=== PATIENT | female | born 1950 | race Caucasian/White ===

== ENCOUNTER → 2018-05-23 12:49 | Outpatient (CLI) | payer SELFPAY ==
--- NOTE | 2018-05-23 12:59 | CT_ITS ---
STUDY: CTA CHEST REASON FOR EXAM: Female, 68 years old. Jaundice and shortness of breath. Decreased hemoglobin. RADIATION DOSAGE (If Supplied By Facility): CTDIvol = ( 17.98 ) mGy, DLP = ( 1944.26 ) mGycm TECHNIQUE: The examination was performed with the intravenous administration of 100Ml ml of Isovue 370 contrast material. Post-processing of the angiographic images was performed, with multiplanar reformation and 3D reconstruction. Individualized dose optimization techniques were used for this CT. COMPARISON: None. FINDINGS: Normal enhancement of the main pulmonary artery and right and left pulmonary arteries. Normal enhancement of the bilateral peripheral pulmonary arteries. There is no demonstrated pulmonary embolism. Normal thoracic aorta and visualized great vessels. There is no demonstrated aortic dissection. Normal heart and pericardium. Normal mediastinum. Normal hilar regions. Normal visualized trachea and bronchi. The lungs are well expanded. Small bilateral pleural effusions with bibasilar infiltration and/or atelectasis. Normal chest wall structures. There are degenerative changes of thoracic spine. Marked atrophy of the right kidney. Gallstones. Moderate-sized hiatal hernia. CT/CTA Chest W/WO Contrast IMPRESSION: Small bilateral pleural effusions with underlying infiltration and/or atelectasis. Electronically Signed: Jaden Rios MD at 15:12 EDT Tel [phone], Service support ,
--- NOTE | 2018-05-23 13:00 | CT_ITS ---
STUDY: CT ABDOMEN AND PELVIS WITH CONTRAST REASON FOR EXAM: Female, 68 years old. Jaundice. Shortness of breath and decreased hemoglobin. RADIATION DOSAGE (If Supplied By Facility): CTDIvol = ( 17.98 ) mGy, DLP = ( 1944.26 ) mGycm TECHNIQUE: Transaxial images were obtained from the dome of the diaphragm to the symphysis pubis with oral contrast. 100mL ml of Isovue 300 contrast was administered. Sagittal and coronal images were reconstructed. Individualized dose optimization techniques were used for this CT. COMPARISON: None. FINDINGS: Small bilateral pleural effusions with bibasilar atelectasis and/or infiltrates. The visualized portions of the heart are within normal limits. Normal liver. There is a solitary gallstone. There is a 7.6 mm rounded hypodensity in the medial aspect of the spleen. This is not a typical cyst. Normal pancreas. Normal bilateral adrenal glands. Marked atrophy of the right kidney. Normal left kidney. Moderate sized renal hernia. Normal small intestine. There is diverticulosis, with thickening of the colon wall, and pericolonic inflammation changes consistent with acute diverticulitis. This is suggestive of mild degree of diverticulitis. There is non-visualization of the appendix. There is scattered atherosclerotic calcification of the abdominal aorta, without a demonstrated aneurysm. Normal inferior vena cava. There is borderline retroperitoneal lymphadenopathy with enlarged nodes no greater than 10mm in the short axis diameter. Normal urinary bladder. There is absence of the uterus consistent with a prior hysterectomy. Normal abdominal wall. There are degenerative changes of the visualized lumbar spine. CT/Abdomen/Pelvis WITH Contrast IMPRESSION: Small bilateral pleural effusions with bibasilar infiltration and/or atelectasis. Moderate sized hiatal hernia. Solitary gallstone. Marked atrophy of the right kidney. Sigmoid diverticulosis and findings suggest a mild degree of noncomplicated sigmoid diverticulitis. Electronically Signed: Jaden Rios MD at 15:10 EDT Tel [phone], Service support ,
[2018-05-23 13:15] LABS: Absolute Neutrophil Count 4.7 X10^3/uL (2.0-7.7); Basophil# 0.02 X10^3/uL; Basophil% 0.3 % (0-1); Eosinophil# 0.03 X10^3/uL; Eosinophils% 0.5 % (0-5); Hematocrit 17.2 % (37-47); Lymphocyte % 18.8 % (19-41); Mean Corp Hgb Conc 26.2 g/gl (32-36); Mean Corpuscular Volume 68.8 fL (81-99); Mean Platelet Vol. 10.3 fl (6.2-12.0); Monocyte# 0.41 X10^3/uL; Monocyte% 6.4 % (0-10); Neutrophil # 4.71 X10^3/uL (2.7-7.7); Neutrophil % 73.8 % (47-70); Platelet Count 355 K/mm3 (150-450); RBC Distribution Width SD 37.8 fl (35.1-43.9); White Blood Count 6.4 K/mm3 (4.4-11.0)
[2018-05-23 13:17] LABS: Hemoglobin 4.5 g/dl (12.0-15.0); POSITIVE COUNT YES; POSITIVE DIFFERENTIAL NO; POSITIVE MORPHOLOGY YES
[2018-05-23 13:18] LABS: Differential Indicated SCAN CRITERIA MET
[2018-05-23 13:26] LABS: ALB/GLOB Ratio 1.2 RATIO (0.9-2.4); AST(SGOT) 12 U/L (15-37); Alanine Aminotransfer ALT/SGPT 20 U/L (13-56); Albumin, Serum 3.6 g/dL (3.2-5.0); Alkaline Phosphatase 76 U/L (45-117); Amylase 50 U/L (25-115); Anion Gap 10 (5-15); BUN 14 mg/dL (7-18); CRP 7.09 mg/L (0.0-3.0); Calcium,Total 8.7 mg/dL (8.5-10.1); Chloride 109 mmol/L (98-107); EST Glomerular Filtration Rate 59 mL/min (>60); Est Glom Filt Rate - Afr Amer 72 mL/min (>60); Glucose 98 mg/dL (74-106); Lipase 115 U/L (73-393); Potassium 4.6 mmol/L (3.5-5.1); Protein, Total 6.6 g/dL (6.4-8.2); Sodium Level 144 mmol/L (136-145)
[2018-05-23 13:30] LABS: Erythrocyte Sedimentation Rate 7 mm/hr (0-30)
[2018-05-23 13:33] LABS: Anisocytosis RARE; Hypochromasia 3+; Microcytosis 2+; Platelet Estimate ADEQUATE (ADEQ); Polychromasia RARE
[2018-05-24 15:31] LABS: Pathologist Review Reviewed
== END ==
PROVIDERS: Family Provider Internal Medicine; PCP Internal Medicine; Referring Provider Internal Medicine; Visit Provider Internal Medicine
DX: R17 Unspecified jaundice (principal); R06.02 Shortness of breath
CPT/HCPCS: 71275; 74177; 80053; 82150; 83690; 85025; 85652; 86140; Q9967

== ENCOUNTER 2018-05-23 15:00 | Inpatient (IN) | payer MEDICARE, SELFPAY ==
[2018-05-23] VITALS (12 sets, daily range): BP systolic 124–154; BP diastolic 45–82; PULSE 72–109; RESP 16–18; TEMP 36.2–37.5; O2SAT 95–99; BMI 43.0; BMI 43.2
--- NOTE | 2018-05-23 16:22 | EKG12_ITS ---
Test Reason : ABNL LABS Blood Pressure : / mmHG Vent. Rate : 097 BPM Atrial Rate : 097 BPM P-R Int : 154 ms QRS Dur : 068 ms QT Int : 344 ms P-R-T Axes : 066 005 042 degrees QTc Int : 436 ms Normal sinus rhythm Normal ECG Confirmed by ABHINAV LOCKE, AMARIS ([id number]), editorial manager DIETER FRAGA ([id number] on 05/31/2018 1:15:05 PM Referred By: Abida Saleem Confirmed By:AMARIS LA MD
--- NOTE | 2018-05-23 16:34 | NURSING ---
NO OLD EKGS
--- NOTE | 2018-05-23 16:50 | NURSING ---
DR VARELA FOR DR VERONICA
--- NOTE | 2018-05-23 17:02 | NURSING ---
PCU ANEMIA, PE KOTSONIS
--- NOTE | 2018-05-23 17:54 | PCM.HP.STD ---
<Mariella Carrasco - Last Filed: 05/23/18 18:20> Problem List (1) Anemia Status: Acute History of Present Illness Date of Admission: 05/23/18 Chief Complaint: Shortness of breath The patient is a 68 year old F who presents emergency room due to increased shortness of breath. Patient states around December or January she noticed shortness of breath, worse with exertion. She states recently this has increased in severity. She denies chest pain. Complains of generalized fatigue. Reports bilateral lower extremity edema. Denies blood in stool/black stools. Denies abdominal pain. Denies history of colonoscopy. Denies cardiac history. Denies dizziness, lightheadedness, syncope. States she has not seen a primary care physician in 5 years. Does not take any home medications. She established with primary care physician who she saw today. Her hemoglobin was noted to be 4.5 and she was referred to emergency room. 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 Denies: Chest Pain, Light Headedness, Palpitations, Syncope Respiratory: Reports: Shortness of Breath - Increased with exertion.. Denies: Cough, Shortness of breath at rest, Sputum production Gastrointestinal: Denies: Abdominal Pain, Constipation, Diarrhea, Hematochezia, Nausea, Melena, Vomiting Genitourinary: Denies: Dysuria Musculoskeletal: Denies: Joint Pain, Joint Tenderness Skin: Denies: Rash, Wounds Neurological: Denies: Numbness, Tingling, Focal weakness Psychiatric: Denies: Anxiety, Depression, Homicidal Ideations, Suicidal Ideations Hematologic/ Lymphatic: Denies: Easy Bruising, Easy Bleeding VTE Information - Inpt Only VTE Present on Admission: No VTE Mechan Device Prophylaxis: SCD's VTE Pharm Prophylaxis ordered?: No Reason prophylaxis not ordered:: Medical Contraindication Patient Problems: Active and Suspected Problems Anemia (Acute) - Physical Exam General: Alert, Oriented x3, Cooperative, No apparent distress HEENT: Atraumatic, PERRLA, EOMI, Normocephalic Neck: Supple, No JVD, Negative Carotid Bruits Lungs: Clear to auscultation, Diminished Cardiovascular: Regular rate, Regular Rhythm, Normal S1, Normal S2, No murmurs Abdomen: Bowel Sounds Present, Soft, Non Tender, Non-Distended, Obese Extremities: No clubbing, No cyanosis, Capillary Refill Less than 3 Seconds, Edema - BLLE non-pitting Skin: No rashes, No breakdown Musculoskeletal: No Tenderness to Palpation of Joints or Extremities Neurological: Cranial nerves II-XII grossly intact, Neuro grossly intact Psych/Mental Status: Normal Affect, Appropriate Vital Signs Temp Pulse Resp BP Pulse Ox 98.6 F 97 16 154/64 H 99 05/23/18 17:38 05/23/18 17:38 05/23/18 17:38 05/23/18 17:38 05/23/18 17:38 Oxygen Delivery Method Room Air Weight: 220 lb Body Mass Index (BMI) 43.0 Laboratory Tests Past 24 Hrs 05/23/18 05/23/18 05/23/18 17:06 17:06 17:06 Iron Pending TIBC Pending Ferritin Pending Vitamin B12 Pending Folate Pending Blood Type Pending Antibody Screen Pending Crossmatch See Detail Assessment/Plan All Active Problems Anemia (Acute) 1. Acute microcytic anemia-hemoglobin 4.5. Stool negative for occult blood. 2 units PRBC. Lasix 40 mg IV x1 in between PRBC. Iron studies, B12, folate pending. Repeat H&H following transfusion and again in a.m. Check LDH and retic panel given profound acute anemia/new dx. CT of abdomen showed small bilateral pleural effusions, moderate hiatal hernia, solitary gallstone, marked atrophy of the right kidney, sigmoid diverticulosis, mild degree of non-complicated sigmoid diverticulitis. 2. Suspected new onset diastolic CHF-bilateral pleural effusions on CT of chest. Bilateral lower extremity edema. Check BNP. Obtain echo. IV Lasix 40 mg daily. Strict I&O. Daily weight. 3. Bilateral pleural effusions-CT of chest shows small bilateral pleural effusions with underlying infiltration and/or atelectasis. Suspect secondary to #2. Afebrile, no leukocytosis, denies cough. 4. Hypertension, mild-systolic 140-150. Continue to monitor. Add antihypertensive if remains elevated. 5. Obesity-encourage diet lifestyle modifications. Nutrition consult. DVT prophylaxis-SCDs, hold pharmacologic prophylaxis due to anemia. This patient was seen by SHAQUILLE Kraft under the supervision of Dr. Tan. <Martin Tan F - Last Filed: 05/23/18 21:21> History of Present Illness The patient is a 68 year old F [] Past Medical History Allergies No Known Allergies Allergy (Verified 05/23/18 15:03) - Physical Exam Vital Signs Temp Pulse Resp BP Pulse Ox 99.3 F H 93 18 128/58 H 97 05/23/18 20:35 05/23/18 20:35 05/23/18 20:35 05/23/18 20:35 05/23/18 20:35 Oxygen Delivery Method Room Air Weight: 221 lb 1.978 oz Body Mass Index (BMI) 43.2 Intake and Output for Last 24 Hours 05/21/18 05/22/18 05/23/18 23:59 23:59 23:59 Intake Total 0 / 0 Balance 0 / 0 Microbiology Past 72 Hours 05/23/18 16:40 Stool Occult Blood (AXEL) - Final Stool Laboratory Tests Past 24 Hrs 05/23/18 05/23/18 05/23/18 13:08 13:08 17:06 Immature Plt Fraction 4.5 Retic Count 2.18 H Immature Retic Fraction 15.80 Retic Hgb Equivalent 12.6 L Iron TIBC Ferritin Lactate Dehydrogenase B-Natriuretic Peptide Pending Vitamin B12 Pending Folate Blood Type Antibody Screen Crossmatch 05/23/18 05/23/18 05/23/18 17:06 17:06 17:06 Immature Plt Fraction Retic Count Immature Retic Fraction Retic Hgb Equivalent Iron 8 L TIBC 512 H Ferritin 4 L Lactate Dehydrogenase 227 B-Natriuretic Peptide Vitamin B12 Folate 51.90 Blood Type A POSITIVE Antibody Screen NEGATIVE Crossmatch See Detail Code Visit Addendum: Dr. Tan I personally examined the patient and reviewed the chart. I agree with the above. 68-year-old female with no significant past medical history because she does not go to the doctor. She presented today for with dyspnea on exertion and she went to a primary care doctor's office for evaluation where labs were performed as well as imaging. She had a CTA done that showed bilateral small pleural effusions without any pulmonary emboli, and she had a CT abdomen pelvis that did not show any significant pathology either. Her CBC however demonstrated a significant anemia of 4.5 hemoglobin. Iron studies demonstrate an iron deficiency anemia. Fecal occult blood stool is negative. She denies any abdominal pain to think of an upper GI source. Given the pleural effusions edema in her lower extremities and a cardiac murmur that is likely a flow murmur, will proceed with an echo tomorrow and Lasix today between her units of blood. After her blood transfusions she may also require a dose of Venofer and to be initiated on p.o. iron. Of note she has never had a colonoscopy and given how slow this anemia has been, I feel she could probably obtain a colonoscopy as an outpatient. Inpatient E&M: [id number] Init Hosp L3
--- NOTE | 2018-05-23 18:14 | ECHOD_ITS ---
Reason For Study: Dyspnea/SOB Procedure This was a 2D Doppler, Color Flow transthoracic echocardiogram. Exam performed portable in patient room. Left Ventricle Normal size and thickness. Mid cavitary false tendon noted. The estimated ejection fraction is 65 %. Stage 1 diastolic dysfunction. No regional wall motion abnormalities noted. Right Ventricle Normal size and thickness. Normal systolic function. Atria The left atrium is mildly enlarged. Normal right atrium. Normal atrial septum. Mitral Valve The mitral valve is structurally normal. No prolapse or stenosis seen. Mild (1+) mitral valve insufficiency. Tricuspid Valve Normal tricuspid valve. Trivial tricuspid valve insufficiency. Right ventricular systolic pressure estimated to be 39 mmHg. Mild pulmonary hypertension. Aortic Valve Trisinus/trileaflet aortic valve. Pulmonic Valve Normal pulmonic valve. Great Vessels Normal aortic root. Normal arch. Normal inferior vena cava. Inferior vena cava collapse with sniff. Pericardium/Pleural No pericardial effusion. MMode/2D Measurements & Calculations LVIDd: 4.7 cm IVSd: 1.3 cm Ao root diam: 3.0 cm LVIDs: 2.7 cm LVPWd: 1.1 cm LA dimension: 3.7 cm RVDd: 3.1 cm FS: 42.4 % LAV(MOD-bp): 49.3 ml LVAd ap4: 27.6 cm2 SV(MOD-sp4): 57.8 ml LAV(MOD-bp) Indexed: 25.8 ml/m2 EDV(MOD-sp4): 85.1 ml LAV(MOD-sp2): 35.7 ml EDV(sp4-el): 88.7 ml LAV(MOD-sp4): 62.0 ml LVAs ap4: 13.7 cm2 ESV(MOD-sp4): 27.3 ml ESV(sp4-el): 27.5 ml EF(MOD-sp4): 67.9 % EF(sp4-el): 69.0 % SV(sp4-el): 61.2 ml LA A4 area: 21.3 cm2 RA A4 area: 10.7 cm2 Time Measurements MV dec time: 0.12 sec Doppler Measurements & Calculations MV E max hola: 106.6 cm/sec Lat Peak E' Hola: 8.6 cm/sec Med Peak E' Hola: 10.3 cm/sec MV A max hola: 149.9 cm/sec E/E' lat: 12.4 E/E' med: 10.3 MV E/A: 0.71 MV V2 max: 175.3 cm/sec MV P1/2t max hola: 143.5 cm/sec Ao V2 max: 188.8 cm/sec MV max P.3 mmHg MV P1/2t: 63.1 msec Ao max P.3 mmHg MV V2 mean: 100.2 cm/sec MV dec slope: 666.5 cm/sec2 Ao V2 mean: 128.6 cm/sec MV mean P.7 mmHg MVA(P1/2t): 3.5 cm2 Ao mean P.4 mmHg MV V2 VTI: 34.1 cm Ao V2 VTI: 35.3 cm LV V1 max: 148.5 cm/sec MR max hola: 526.7 cm/sec PA V2 max: 114.6 cm/sec LV V1 max P.8 mmHg MR max P.0 mmHg LV V1 mean P.9 mmHg LV V1 mean: 103.7 cm/sec LV V1 VTI: 29.5 cm TR max hola: 290.4 cm/sec TR max P.7 mmHg Interpretation Summary The estimated ejection fraction is 65 %. Stage 1 diastolic dysfunction. The left atrium is mildly enlarged. Mild (1+) mitral valve insufficiency. Trivial tricuspid valve insufficiency. Right ventricular systolic pressure estimated to be 39 mmHg. Mild pulmonary hypertension. There is no comparison study available. Ordering Physician: SHAQUILLE Kraft Referring Physician: Abida Saleem Performed By: Jorge De Santiago RCS
[2018-05-23 18:22] LABS: Ferritin 4 ng/mL (8-252); Iron 8 ug/dL (50-170); Iron Binding Capacity,Total 512 ug/dL (250-450)
[2018-05-23 18:37] LABS: Immature Platelet Fraction 4.5 % (1.0-7.9); RET-HE 12.6 pg (30-35); Reticulocyte Count 2.18 % (0.5-1.5)
[2018-05-23 18:58] LABS: LDH 227 U/L (84-246)
[2018-05-23] MEDS: 0.9% NaCl Peripheral Flush Adult/Peds IV ×3 (19:27→22:16)
[2018-05-23] MEDS: Furosemide 40 MG/4 ML Vial IV (22:15)
--- NOTE | 2018-05-23 23:17 | ED.DCSUM_ITS ---
- ER Visit Summary Date of Service: 05/23/18 Chief Complaint: Abnormal labs History of Present Illness: The patient is a 68 F who was referred to the emergency department by primary care. Patient states that she does not really have any medical problems and in fact has not been to a physician for over 5 ye ars. She states that early spring and summer family states that she started looking a little pale but then she started to grewal and summertime. About that time she started noticing some progressive shortness of breath that is now more significant and sometimes even at rest and with conversation. She denies any chest pain. No weight loss or weight gain she denies any black or bloody stools. No prior colonoscopy. She went to go see primary care Dr Saleem and had outpatient labs performed. This showed a hemoglobin of 4.5 RDW of 16. Platelets 355 and a white blood cell count 6.4. Patient had a total bilirubin of 0.[address] Trisha of the chest that showed small bilateral pleural effusions and CT of the abdomen pelvis that showed possible diverticulitis. Patient's not having any abdominal pain. She notes her stool is light brown. She notes a faster than normal heart rate and palpitations Physical Examination: Afebrile vital signs are stable Gen: Well-nourished well-developed Head: Normocephalic atraumatic Eyes: Perrl EOMI ENT: TMs clear no rhinorrhea moist mucous membranes Neck: Supple no lymphadenopathy no JVD nontender CVS: Regular rate rhythm no murmurs normal S1-S2 Respiratory: No distress clear to auscultation bilaterally chest nontender Abdomen: Soft nontender nondistended normal bowel sounds no masses Back: Nontender Extremity: Nontender no edema Skin: Parlor Neuro: alert orientated ?3 CN II-XII intact normal strength sensation reflexes gait cerebellar Psych: Normal affect normal mood Test Results: Iron studies were ordered Hemoccult was negative. She is typed and crossed for 2 units. EKG showed a sinus rhythm at a rate of 97. Emergency Department Course and Treatment: Plan is admission into the hospital. She will be transfused and further evaluation into her anemia embarked upon. Impression: 1. Anemia requiring transfusion This note was generated with [employer] dictation software. It may contain incorrect words, spelling, and punctuation that were not noted in review of the chart prior to signing ED Disposition - Plan for ED Patient: Disposition: Acute Care Hospital [facility] Chief Complaint: Abn Labs
[2018-05-24] VITALS (28 sets, daily range): BP systolic 119–158; BP diastolic 27–79; PULSE 81–96; RESP 16–24; TEMP 36.8–37.4; O2SAT 92–99
[2018-05-24] MEDS: 0.9% NaCl Peripheral Flush Adult/Peds IV ×4 (02:24→13:54)
[2018-05-24] MEDS: Furosemide 40 MG/4 ML Vial IV ×2 (02:28→13:47)
[2018-05-24 07:03] LABS: BUN 14 mg/dL (7-18); BUN/Creat Ratio 11.9 RATIO (10-20); Calcium,Total 8.8 mg/dL (8.5-10.1); Chloride 104 mmol/L (98-107); Creatinine, Serum 1.18 mg/dL (0.55-1.02); EST Glomerular Filtration Rate 49 mL/min (>60); Est Glom Filt Rate - Afr Amer 59 mL/min (>60); Estimated Creatinine Clearance 33.69 ml/min; Glucose 126 mg/dL (74-106); Potassium 3.5 mmol/L (3.5-5.1); Sodium Level 143 mmol/L (136-145)
[2018-05-24 07:04] LABS: Anion Gap 11 (5-15)
[2018-05-24 07:08] LABS: Absolute Lymphocyte Count 1.44 X10^3/ul (0.83-4.51); Absolute Neutrophil Count 3.5 X10^3/uL (2.0-7.7); Basophil# 0.03 X10^3/uL; Basophil% 0.5 % (0-1); Eosinophil# 0.09 X10^3/uL; Eosinophils% 1.6 % (0-5); Hematocrit 23.5 % (37-47); Hemoglobin 6.8 g/dl (12.0-15.0); Lymphocyte # 1.44 X10^3/ul (4.0); Lymphocyte % 26.4 % (19-41); Mean Corp Hgb Conc 28.9 g/gl (32-36); Mean Corpuscular Volume 72.5 fL (81-99); Mean Platelet Vol. 10.2 fl (6.2-12.0); Monocyte# 0.41 X10^3/uL; Monocyte% 7.5 % (0-10); Neutrophil # 3.47 X10^3/uL (2.7-7.7); Neutrophil % 63.6 % (47-70); Platelet Count 357 K/mm3 (150-450); RBC Distribution Width CV 21.8 % (11.6-14.6); RBC Distribution Width SD 54.4 fl (35.1-43.9); Red Blood Count 3.24 M/mm3 (4.2-5.4); White Blood Count 5.5 K/mm3 (4.4-11.0)
[2018-05-24 07:12] LABS: Differential Indicated SCAN CRITERIA MET; POSITIVE COUNT NO; POSITIVE DIFFERENTIAL NO; POSITIVE MORPHOLOGY YES
[2018-05-24 07:25] LABS: Anisocytosis 2+; Hypochromasia 3+; Microcytosis 2+; Platelet Estimate ADEQUATE (ADEQ); Polychromasia 1+
--- NOTE | 2018-05-24 11:18 | NURSING ---
pt IV leaking, IV intact. Loop tightened. Pt IV site cleaned, dressing changed with small tegaderm.
[2018-05-24 11:34] LABS: Vitamin B12 848 pg/mL (211-911)
[2018-05-24 11:48] LABS: BNP,B-Type NATRIURETIC PEPTIDE 113.4 pg/mL (0-100)
--- NOTE | 2018-05-24 11:58 | CASEMGMT ---
LILIAN KENNEDY assessment: Face to Face with patient for initial transition planning/care coordination assessment. LILIAN KENNEDY introduced self and role at [facility], pt voices understanding and consents to assessment at this time. Pt is sitting up in bed in no distress at this time with family at bedside. Pt is A/O x4 at this time and answers all questions appropriately at this time. Care providers, pharmacy, and demographics verified at this time. PCP: [facility] Specialists: Pt states no current specialists. Preferred [facility]acy: [facility] Insurance: MCR A only, pt provided information on MCR B and D at this time, voices understanding. Prescription Benefit: Pt does not currently have Rx coverage. Living Will/HPOA: Pt does not have LW/HPOA but would like to complete paperwork at this time. Referral to [facility] at this time, voices understanding. LNOK: Brad Maloney, ; Sylwia Rosales, daughter Living Arrangements: Pt states lives in 2 story home with and states has been having increased SOB with stairs to 2nd floor for last several months. Pt states no concerns with ADL's at home at this time. Transportation: Pt states drives self and states no transportation concerns at this time. DME/HHC: Pt states no current DME or need for any at this time. Pt states no hx of HHC or SNF at this time. Pt states no concerns with going home at time of discharge. Pt states does not smoke or drink ETOH. Pt states no further concerns/needs at this time. CM to follow for any further discharge planning/needs. Advised pt to ask for CM if any further questions/concerns arise, voices understanding. Plan[place] LILIAN KENNEDY
--- NOTE | 2018-05-24 12:49 | CASEMGMT ---
As per CM, pt and possibly pt's interested in completing LW/POA. SW met w/pt and in room, other family present. Pt okay w/completing forms w/family present, states will take the information and complete at a later date. SW gave information to call the SW dept should he want assist in completing the forms, explained SW can make an appointment to assist with this. SW then assisted pt in completing POA/LW, gave pt original and two copies, and placed a copy on the chart. No further social service needs anticipated at this time. NILAM Elena, [employer] MANAGER
--- NOTE | 2018-05-24 13:13 | PN_ITS ---
Addendum entered and electronically signed by SHAQUILLE Kraft 05/24/18 15:42: Code Visit Addendum to diagnosis #2: New onset acute diastolic dysfunction-echocardiogram showed an EF of 65%, stage I diastolic dysfunction, mild mitral valve insufficiency, RVSP estimated to be 39 mmHg, mild pulmonary hypertension. Original Note: <Mariella Carrasco - Last Filed: 05/24/18 13:13> Patient Problems: Active and Suspected Problems Anemia (Acute) Subjective: Patient seen and examined. Notes improvement in lower extremity edema. -10 lbs with IV lasix. Weakness improved following blood transfusions. Denies chest pain, shortness of breath. - Physical Exam General: Alert, Oriented x3, Cooperative, No apparent distress HEENT: Atraumatic, PERRLA, EOMI, Normocephalic Neck: Supple, No JVD, Negative Carotid Bruits Lungs: Normal air movement, - - Fine crackles bases Cardiovascular: Regular rate, Regular Rhythm, Normal S1, Normal S2, No murmurs Abdomen: Bowel Sounds Present, Soft, Non Tender, Non-Distended, Obese Extremities: No clubbing, No cyanosis, No edema, Capillary Refill Less than 3 Seconds Skin: No rashes, No breakdown Musculoskeletal: No Tenderness to Palpation of Joints or Extremities Neurological: Cranial nerves II-XII grossly intact, Neuro grossly intact Psych/Mental Status: Normal Affect, Appropriate Vital Signs Temp Pulse Resp BP Pulse Ox 99.0 F 94 16 136/79 H 99 05/24/18 12:11 05/24/18 12:11 05/24/18 12:11 05/24/18 12:11 05/24/18 12:11 Oxygen Flow Rate (L/min) 2 Oxygen Delivery Method Room Air Weight: 211 lb 10.3 oz Body Mass Index (BMI) 43.2 Intake and Output for Last 24 Hours 05/22/18 05/23/18 05/24/18 23:59 23:59 23:59 Intake Total 971 / 971 2009 Output Total 4650 / 4650 Balance 971 / 971 -2640 / -2640 Microbiology Past 72 Hours 05/23/18 16:40 Stool Occult Blood (AXEL) - Final Stool Laboratory Tests Past 24 Hrs 05/23/18 05/23/18 05/23/18 13:08 13:08 17:06 WBC RBC Hgb Hct MCV MCH MCHC RDW RDW Differential Plt Count MPV Immature Gran % (Auto) Neut % (Auto) Lymph % (Auto) [place] % (Auto) Eos % (Auto) Baso % (Auto) Absolute Neuts (auto) Absolute Lymphs (auto) Total Counted Platelet Estimate Immature Plt Fraction 4.5 Polychromasia Hypochromasia Anisocytosis Microcytosis Retic Count 2.18 H Immature Retic Fraction 15.80 Retic Hgb Equivalent 12.6 L Sodium Potassium Chloride Carbon Dioxide Anion Gap BUN Creatinine Estim Creat Clear Calc Est GFR (MDRD) Af Amer Est GFR (MDRD) Non-Af BUN/Creatinine Ratio Glucose Calcium Iron TIBC Ferritin Lactate Dehydrogenase B-Natriuretic Peptide 113.4 H Vitamin B12 848 Folate Blood Type Antibody Screen Crossmatch 05/23/18 05/23/18 05/23/18 17:06 17:06 17:06 WBC RBC Hgb Hct MCV MCH MCHC RDW RDW Differential Plt Count MPV Immature Gran % (Auto) Neut % (Auto) Lymph % (Auto) [place] % (Auto) Eos % (Auto) Baso % (Auto) Absolute Neuts (auto) Absolute Lymphs (auto) Total Counted Platelet Estimate Immature Plt Fraction Polychromasia Hypochromasia Anisocytosis Microcytosis Retic Count Immature Retic Fraction Retic Hgb Equivalent Sodium Potassium Chloride Carbon Dioxide Anion Gap BUN Creatinine Estim Creat Clear Calc Est GFR (MDRD) Af Amer Est GFR (MDRD) Non-Af BUN/Creatinine Ratio Glucose Calcium Iron 8 L TIBC 512 H Ferritin 4 L Lactate Dehydrogenase 227 B-Natriuretic Peptide Vitamin B12 Folate 51.90 Blood Type A POSITIVE Antibody Screen NEGATIVE Crossmatch See Detail 05/23/18 05/24/18 05/24/18 17:06 06:04 06:04 WBC 5.5 RBC 3.24 L Hgb 6.8 L Hct 23.5 L MCV 72.5 L MCH 21.0 L MCHC 28.9 L RDW 21.8 H RDW Differential 54.4 H Plt Count 357 MPV 10.2 Immature Gran % (Auto) 0.400 Neut % (Auto) 63.6 Lymph % (Auto) 26.4 [place] % (Auto) 7.5 Eos % (Auto) 1.6 Baso % (Auto) 0.5 Absolute Neuts (auto) 3.5 Absolute Lymphs (auto) 1.44 Total Counted Not Reportable Platelet Estimate ADEQUATE Immature Plt Fraction Polychromasia 1+ Hypochromasia 3+ Anisocytosis 2+ Microcytosis 2+ Retic Count Immature Retic Fraction Retic Hgb Equivalent Sodium 143 Potassium 3.5 Chloride 104 Carbon Dioxide 28.0 Anion Gap 11 BUN 14 Creatinine 1.18 H Estim Creat Clear Calc 33.69 Est GFR (MDRD) Af Amer 59 L Est GFR (MDRD) Non-Af 49 L BUN/Creatinine Ratio 11.9 Glucose 126 H Calcium 8.8 Iron TIBC Ferritin Lactate Dehydrogenase B-Natriuretic Peptide Vitamin B12 Folate Blood Type Antibody Screen Crossmatch See Detail Medical Necessity - Tobacco Use Smoking Status: Never smoker Tobacco Use: Non-smoker Assessment/Plan All Active Problems Anemia (Acute) 1. Acute microcytic anemia, iron deficiency-hemoglobin 4.5 on admission. Stool negative for occult blood. Hemoglobin increased to 6.8 following 2 units PRBC. Give additional 2 units. Iron studies consistent with iron deficiency anemia. B12 and folate normal. LDH 227. IV iron x1. Begin oral iron. CT of abdomen showed small bilateral pleural effusions, moderate hiatal hernia, solitary gallstone, marked atrophy of the right kidney, sigmoid diverticulosis, mild d egree of non-complicated sigmoid diverticulitis. Recommend outpatient colonoscopy. Trend CBC. 2. Suspected new onset CHF, unclear subtype-bilateral pleural effusions on CT of chest. Bilateral lower extremity edema. BNP mildly elevated. Echo pending. IV Lasix 40 mg daily. Strict I&O. Daily weight. -10lb since admission. 3. Bilateral pleural effusions-CT of chest shows small bilateral pleural effusions with underlying infiltration and/or atelectasis. Suspect secondary to #2. Afebrile, no leukocytosis, denies cough. Repeat CXR in a.m. 4. Mild elevated creatinine-due to IV Lasix. Trend BMP. 5. Hypertension, mild-systolic 130-140. Add low dose lisinopril. Continue to monitor. 6. Obesity-encourage diet lifestyle modifications. DVT prophylaxis-SCDs, hold pharmacologic prophylaxis due to anemia. This patient was seen by SHAQUILLE Kraft under the supervision of Dr. Odell. <Jessa Odell - Last Filed: 05/24/18 15:22> - Physical Exam Vital Signs Temp Pulse Resp BP Pulse Ox 98.9 F 86 16 158/74 H 94 05/24/18 15:00 05/24/18 15:00 05/24/18 15:00 05/24/18 15:00 05/24/18 15:00 Oxygen Flow Rate (L/min) 2 Oxygen Delivery Method Room Air Weight: 96 kg Body Mass Index (BMI) 43.2 Intake and Output for Last 24 Hours 05/22/18 05/23/18 05/24/18 23:59 23:59 23:59 Intake Total 971 / 971 2410 / 2410 Output Total 5025 / 5025 Balance 971 / 971 -2615 / -2615 Microbiology Past 72 Hours 05/23/18 16:40 Stool Occult Blood (AXEL) - Final Stool Laboratory Tests Past 24 Hrs 05/23/18 05/23/18 05/23/18 13:08 13:08 17:06 WBC RBC Hgb Hct MCV MCH MCHC RDW RDW Differential Plt Count MPV Immature Gran % (Auto) Neut % (Auto) Lymph % (Auto) [place] % (Auto) Eos % (Auto) Baso % (Auto) Absolute Neuts (auto) Absolute Lymphs (auto) Total Counted Platelet Estimate Immature Plt Fraction 4.5 Polychromasia Hypochromasia Anisocytosis Microcytosis Retic Count 2.18 H Immature Retic Fraction 15.80 Retic Hgb Equivalent 12.6 L Sodium Potassium Chloride Carbon Dioxide Anion Gap BUN Creatinine Estim Creat Clear Calc Est GFR (MDRD) Af Amer Est GFR (MDRD) Non-Af BUN/Creatinine Ratio Glucose Calcium Iron TIBC Ferritin Lactate Dehydrogenase B-Natriuretic Peptide 113.4 H Vitamin B12 848 Folate Blood Type Antibody Screen Crossmatch 05/23/18 05/23/18 05/23/18 17:06 17:06 17:06 WBC RBC Hgb Hct MCV MCH MCHC RDW RDW Differential Plt Count MPV Immature Gran % (Auto) Neut % (Auto) Lymph % (Auto) [place] % (Auto) Eos % (Auto) Baso % (Auto) Absolute Neuts (auto) Absolute Lymphs (auto) Total Counted Platelet Estimate Immature Plt Fraction Polychromasia Hypochromasia Anisocytosis Microcytosis Retic Count Immature Retic Fraction Retic Hgb Equivalent Sodium Potassium Chloride Carbon Dioxide Anion Gap BUN Creatinine Estim Creat Clear Calc Est GFR (MDRD) Af Amer Est GFR (MDRD) Non-Af BUN/Creatinine Ratio Glucose Calcium Iron 8 L TIBC 512 H Ferritin 4 L Lactate Dehydrogenase 227 B-Natriuretic Peptide Vitamin B12 Folate 51.90 Blood Type A POSITIVE Antibody Screen NEGATIVE Crossmatch See Detail 05/23/18 05/24/18 05/24/18 17:06 06:04 06:04 WBC 5.5 RBC 3.24 L Hgb 6.8 L Hct 23.5 L MCV 72.5 L MCH 21.0 L MCHC 28.9 L RDW 21.8 H RDW Differential 54.4 H Plt Count 357 MPV 10.2 Immature Gran % (Auto) 0.400 Neut % (Auto) 63.6 Lymph % (Auto) 26.4 [place] % (Auto) 7.5 Eos % (Auto) 1.6 Baso % (Auto) 0.5 Absolute Neuts (auto) 3.5 Absolute Lymphs (auto) 1.44 Total Counted Not Reportable Platelet Estimate ADEQUATE Immature Plt Fraction Polychromasia 1+ Hypochromasia 3+ Anisocytosis 2+ Microcytosis 2+ Retic Count Immature Retic Fraction Retic Hgb Equivalent Sodium 143 Potassium 3.5 Chloride 104 Carbon Dioxide 28.0 Anion Gap 11 BUN 14 Creatinine 1.18 H Estim Creat Clear Calc 33.69 Est GFR (MDRD) Af Amer 59 L Est GFR (MDRD) Non-Af 49 L BUN/Creatinine Ratio 11.9 Glucose 126 H Calcium 8.8 Iron TIBC Ferritin Lactate Dehydrogenase B-Natriuretic Peptide Vitamin B12 Folate Blood Type Antibody Screen Crossmatch See Detail Assessment/Plan This patient was seen in conjunction with Mariella Carrasco NP. I have independently interviewed and examined the patient and reviewed pertinent historical, laboratory, and other data. Please refer to her note for patient's presentation, findings, and recommendations. Patient was seen and examined. Family at bedside. No acute events overnight. Denies any dizziness or shortness of breath. Transfused 3 units of packed RBCs at the time of being examined. Vitals were reviewed -stable. Patient has diuresed more than 5 L of urine Labs reviewed: Physical Exam: Gen: Comfortable, not pale, not jaundiced, alert oriented x3 CVS:HS I +II, regular, no murmurs RESP: Diminished at lung bases GI: Full, firm, nontender, no ballotable organs EXT:No edema ASSESSMENT: 1. Acute iron deficiency anemia, admitting hemoglobin of 4.5, will be transfused 4 units of packed RBCs with Lasix in between. 2. Bilateral pleural effusion, small, suspect acute on chronic diastolic CHF 3. Acute on chronic diastolic CHF secondary to severe anemia 4. Hypertension, uncontrolled 5. Obesity 6. Hiatal hernia, moderate 7. CKD stage 3 Plan: Transfuse a total of 4 units of packed RBC Continue on lisinopril 5 mg for blood pressure Agree with Lasix therapy, fluids, strict I's and O's, Trend BMP in a.m. Code Visit Inpatient E&M: 77417 Subs Hosp L2
--- NOTE | 2018-05-24 14:02 | NURSING ---
Dr Odell at bedside with pt, the student nurse at bedside. Verbal orders from Dr. Odell to administer second unit of blood prior to administering Iron infusion.
[2018-05-25] VITALS (8 sets, daily range): BP systolic 108–160; BP diastolic 55–90; PULSE 83–94; RESP 16; TEMP 36.9–37.3; O2SAT 92–94
--- NOTE | 2018-05-25 05:55 | RAD_ITS ---
STUDY: X-RAY CHEST REASON FOR EXAM: Female, 68 years old. Pleural effusion. TECHNIQUE: Single AP portable view of the chest. COMPARISON: None. FINDINGS: EKG electrodes are seen. Elevation of the right hemidiaphragm. There is no demonstrated pleural abnormality. Normal size heart. Normal mediastinum and pilar. Normal visualized pulmonary arteries. Normal visualized aortic arch and descending thoracic aorta. There is a dextroscoliosis of the thoracic spine. Normal visualized ribs, clavicles, and shoulders. There is no demonstrated abnormality of the visualized soft tissue structures of the upper abdomen. RAD/Chest 1 View (Portable) IMPRESSION: No acute abnormality is seen. Electronically Signed: Jaden Rios MD at 9:44 EDT Tel [phone], Service support ,
[2018-05-25 06:17] LABS: Anion Gap 9 (5-15); BUN 16 mg/dL (7-18); BUN/Creat Ratio 14.4 RATIO (10-20); Calcium,Total 8.6 mg/dL (8.5-10.1); Chloride 104 mmol/L (98-107); Creatinine, Serum 1.11 mg/dL (0.55-1.02); EST Glomerular Filtration Rate 52 mL/min (>60); Est Glom Filt Rate - Afr Amer 63 mL/min (>60); Estimated Creatinine Clearance 35.81 ml/min; Glucose 88 mg/dL (74-106); Potassium 3.5 mmol/L (3.5-5.1); Sodium Level 144 mmol/L (136-145)
[2018-05-25 06:41] LABS: Hematocrit 31.8 % (37-47); Hemoglobin 9.5 g/dl (12.0-15.0); Mean Corp Hgb Conc 29.9 g/gl (32-36); Mean Corpuscular Hgb 22.4 pg (27.0-32.0); Mean Platelet Vol. 9.8 fl (6.2-12.0); Platelet Count 322 K/mm3 (150-450); RBC Distribution Width SD 59.4 fl (35.1-43.9); Red Blood Count 4.24 M/mm3 (4.2-5.4); White Blood Count 7.8 K/mm3 (4.4-11.0)
[2018-05-25 06:44] LABS: Scan Indicated on CBC? Y/N YES- FLAGS NOTED
[2018-05-25] MEDS: Lisinopril 5 MG Tablet PO (09:35)
[2018-05-25] MEDS: 0.9% NaCl Peripheral Flush Adult/Peds IV (09:36)
[2018-05-25] MEDS: Furosemide 40 MG/4 ML Vial IV (09:36)
--- NOTE | 2018-05-25 10:25 | DCINST_ITS ---
- Discharge Diagnoses Current Active Problems: Current Active and Chronic Problems Anemia (Acute) Reason(s) for Visit for Discharge Instructions: Shortness of breath, anemia You will use the following diet at home:: Cardiac Your food should be the consistency of: Regular Your liquids should be the consistency of: Regular/Thin Discharge Activity: Return to Normal Activity Additional Instructions: Continue to remain active. Continue on fluid restriction for 1500mls. You should follow-up with your primary care doctor in 1 week. You will need repeat blood work within 1 week. Continue to use your incentive spirometer. Allergies/Adverse Reactions: Allergies No Known Allergies Allergy (Verified 05/23/18 15:03) Medications to take at Discharge Furosemide [Lasix] 40 mg PO DAILY #60 tablet 05/25/18 Lisinopril [Zestril] 5 mg PO DAILY #30 tablet 05/25/18 The following prescriptions were given: Furosemide [Lasix] 40 mg PO DAILY #60 tablet Lisinopril [Zestril] 5 mg PO DAILY #30 tablet Orders to be completed after discharge: Basic Metabolic Profile (BMP) Location: Laboratory Primary Care Physician: Abida Saleem DO [Primary Care Provider] - Please follow up with your Primary Care Physician in: in 1 week Test Results: Test results from this visit will be discussed in further detail at your follow- up appointment, if applicable. Please Follow Up With: Alexandr White MD When: 06/01/18 at 10:10am Proposed Discharge Date: 05/25/18
--- NOTE | 2018-05-25 10:25 | DS.PCM_ITS ---
Discharge Date and Diagnosis Date of Admission: 05/23/18 Date of Discharge: 05/25/18 - Primary Discharge Diagnosis Active and Suspected Problems Anemia (Acute) Hospital Course and Treatment Imaging Results: 05/25/18 05:55 CXR [Chest 1 View (Portable)] [RAD] AM (NON MEDS) None Operations: None Procedures: None Summary of Care Provided: The patient is a 68 year old F no significant past medical history 5 years comes in with complaints of shortness of breath that has been going on for months. Patient had noted that this has been getting worse in the last few days but denied any chest pain no dizziness or syncope or presyncope. She denied any cardiac history. She was admitted with hemoglobin of 4.5. Denied any bleeding per rectum or melena stools. She is status post hysterectomy. Patient was found on imaging to have bilateral pleural effusions. She received 4 units of packed RBCs, with improvement in her symptoms. She also received IV Lasix for treatment of acute CHF, 2D echo had shown an EF of 65% with possible diastolic dysfunction. Patient diuresed more than 7.3 L of fluids. She was discharged home on Lasix, asked to follow-up with her primary care doctor and general surgery for colonoscopy and EGD. Hemoglobin at discharge was 9.5 Subjective: Patient was seen and examined. Denies any new complaints. Slightly short of breath on exertion. Been ambulating around the hallways. - Physical Exam General: Alert, Oriented x3, Cooperative, No apparent distress, - - obese HEENT: Atraumatic, PERRLA, EOMI, Normocephalic Oral: Moist Mucosa Neck: Supple, No JVD, Negative Carotid Bruits Lungs: Clear to auscultation, Normal air movement Cardiovascular: Regular rate, Regular Rhythm, Normal S1, Normal S2, No murmurs Abdomen: Bowel Sounds Present, Soft, Non Tender, Non-Distended, No Hepato- splenomegaly Extremities: No edema, Capillary Refill Less than 3 Seconds Skin: No rashes, No breakdown Musculoskeletal: No Tenderness to Palpation of Joints or Extremities Lymphatic: No Cervical, Supraclavicular, or Inguinal Adenopathy Neurological: Cranial nerves II-XII grossly intact, Neuro grossly intact Psych/Mental Status: Normal Affect, Appropriate Vital Signs Temp Pulse Resp BP Pulse Ox 99.1 F 84 16 130/62 H 94 05/25/18 08:00 05/25/18 08:33 05/25/18 08:33 05/25/18 08:16 05/25/18 08:46 Oxygen Flow Rate (L/min) 2 Oxygen Delivery Method Room Air Weight: 94.6 kg Body Mass Index (BMI) 43.2 Intake and Output for Last 24 Hours 05/23/18 05/24/18 05/25/18 23:59 23:59 23:59 Intake Total 971 / 971 3420 / 3420 220 / 220 Output Total 6000 / 6000 1300 / 1300 Balance 971 / 971 -2580 / -2580 -1080 / -1080 Microbiology Past 72 Hours 05/23/18 16:40 Stool Occult Blood (AXEL) - Final Stool Laboratory Tests Past 24 Hrs 05/23/18 05/23/18 05/23/18 13:08 17:06 17:06 WBC RBC Hgb Hct MCV MCH MCHC RDW RDW Differential Plt Count MPV Sodium Potassium Chloride Carbon Dioxide Anion Gap BUN Creatinine Estim Creat Clear Calc Est GFR (MDRD) Af Amer Est GFR (MDRD) Non-Af BUN/Creatinine Ratio Glucose Calcium B-Natriuretic Peptide 113.4 H Vitamin B12 848 Crossmatch See Detail 05/25/18 05/25/18 05:30 05:30 WBC 7.8 RBC 4.24 Hgb 9.5 L Hct 31.8 L MCV 75.0 L MCH 22.4 L MCHC 29.9 L RDW 22.0 H RDW Differential 59.4 H Plt Count 322 MPV 9.8 Sodium 144 Potassium 3.5 Chloride 104 Carbon Dioxide 31.0 Anion Gap 9 BUN 16 Creatinine 1.11 H Estim Creat Clear Calc 35.81 Est GFR (MDRD) Af Amer 63 Est GFR (MDRD) Non-Af 52 L BUN/Creatinine Ratio 14.4 Glucose 88 Calcium 8.6 B-Natriuretic Peptide Vitamin B12 Crossmatch Discharge Diet: Low fat/ Low Cholesterol, 2000 mg Sodium Diet Discharge Activity: Return to Normal Activity Home Medications: Medications to take at Discharge Furosemide [Lasix] 40 mg PO DAILY #60 tablet 05/25/18 Lisinopril [Zestril] 5 mg PO DAILY #30 tablet 05/25/18 Following Prescrptions Were Given to Patient: Furosemide [Lasix] 40 mg PO DAILY #60 tablet Lisinopril [Zestril] 5 mg PO DAILY #30 tablet Other Amb Orders: Basic Metabolic Profile (BMP) Location: Laboratory Primary Care Physician: Abida Saleem DO [Primary Care Provider] - Please follow up with your Primary Care Physician in: in 1 week Please Follow Up With: Alexandr White MD When: 06/01/18 at 10:10am Disposition: Home Minutes spent on discharge:: 40 Patient Condition:: Stable Medical Necessity - Tobacco Use Smoking Status: Never smoker Tobacco Use: Non-smoker Meaningful Use Info Meaningful Use Diagnoses (Choose all that apply): None applicable Code Visit Inpatient E&M: 65852 Disch Hosp
--- NOTE | 2018-05-25 12:36 | NURSING ---
Student nurse charting reviewed and appropriate.
== END 2018-05-25 11:26 | disposition home or self-care (01) | DRG 811 ==
LOC: ED 17:03 → PCU 17:16
PROVIDERS: Nurse Practitioner Family; Admitting Provider Family Medicine; Emergency Provider Emergency Medicine; Family Provider Internal Medicine; PCP Internal Medicine; Visit Provider Internal Medicine
DX: D50.9 Iron deficiency anemia, unspecified (principal); I50.31 Acute diastolic (congestive) heart failure; Z68.41 Body mass index [BMI] 40.0-44.9, adult; J91.8 Pleural effusion in other conditions classified elsewhere; I13.0 Hypertensive heart and chronic kidney disease with heart failure and stage 1 through stage 4 chronic kidney disease, or unspecified chronic kidney disease; E66.9 Obesity, unspecified; K44.9 Diaphragmatic hernia without obstruction or gangrene; N18.3 Chronic kidney disease, stage 3 (moderate); Z90.710 Acquired absence of both cervix and uterus
CPT/HCPCS: 36415; 71045; 80048; 82274; 82607; 82728; 82746; 83540; 83550; 83615; 83880; 85025; 85027; 85045; 86850; 86900; 86920; 86922; 93005; 93306; 99283; J1756; J7040; P9016; A4216; J1940

== ENCOUNTER → 2018-05-30 08:52 | Outpatient (CLI) | payer SELFPAY ==
[2018-05-30 10:44] LABS: Anion Gap 10 (5-15); BUN 27 mg/dL (7-18); Calcium,Total 8.9 mg/dL (8.5-10.1); Chloride 106 mmol/L (98-107); Creatinine, Serum 1.23 mg/dL (0.55-1.02); EST Glomerular Filtration Rate 46 mL/min (>60); Est Glom Filt Rate - Afr Amer 56 mL/min (>60); Glucose 98 mg/dL (74-106); Potassium 4.4 mmol/L (3.5-5.1); Sodium Level 142 mmol/L (136-145)
== END ==
PROVIDERS: Family Provider Internal Medicine; PCP Internal Medicine; Referring Provider Internal Medicine; Visit Provider Internal Medicine
DX: Z09 Encounter for follow-up examination after completed treatment for conditions other than malignant neoplasm (principal)
CPT/HCPCS: 36415; 80048

== ENCOUNTER → 2018-06-26 12:27 | Outpatient (CLI) | payer SELFPAY ==
[2018-06-26 14:08] LABS: AST(SGOT) 29 U/L (15-37); Alanine Aminotransfer ALT/SGPT 36 U/L (13-56); Albumin, Serum 3.6 g/dL (3.2-5.0); Alkaline Phosphatase 66 U/L (45-117); Bilirubin, Direct 0.13 mg/dL (0.00-0.30); Globulin 3.4 g/dL (2.2-4.2)
--- OUTSIDE RECORDS SUMMARY | 2018-08-19 18:46 | XMS RPT_ITS | Continuity of Care Document ---
:1950 Author Organization [facility] Address [address] [place] [address] Phone Care Team Providers Name Role Phone Abida Saleem DO Unavailable CarissaEnrique brown Unavailable GravCynthia rocha Unavailable Unavailable Tim, LOCOMOTIVE FIRER/FIREMAN Tiffany Unavailable Unavailable Unavailable Unavailable Problems Name Dates Details Bilateral pleural effusion (J90, 511.9) Comments: if reaccumulate can do cxr to eval and restart but kidney fcn popping up so sdtop lasix for now Status: Active BMI 40.0-44.9, adult (Z68.41, V85.41) Status: Active BMI 40.0-44.9, adult (Z68.41, V85.41) Status: Active Deliveries (Parity) Comments: 4. Status: Active Diverticulitis (K57.92, 562.11) Comments: asx Status: Active Gallstones (K80.20, 574.20) Comments: asx Status: Active Hiatal hernia (K44.9, 553.3) Status: Active HTN (hypertension), benign (I10, 401.1) Status: Active Non-smoker (Z78.9, V49.89) Status: Active Other specified anemias (D64.89, 285.8) Comments: cont iron--- hgb at discharge 9.5-- set up to do outpt egd/colonsocopy -- if noraml refer to hematology Status: Active Pregnancies () Comments: 4. Status: Active Pulmonary hypertension (I27.20, 416.8) Status: Active Splenic cyst (D73.4, 289.59) Status: Active Medications Name Dates Details Aleve 220 MG Oral Capsule Active 1 qhs (220 MG) Aspirin 81 MG Oral Tablet Active 1 qd (81 MG) Glucosamine Chondroitin Complx Oral Capsule Active 1 qd Iron 65 MG Oral Tablet Active 1 daily (65 MG) Lisinopril 5 MG Oral Tablet Active 1 daily (5 MG) Ultra Womens Pack Miscellaneous Active 1 qd Vitamin B Complex Oral Tablet Active 1 qd Allergies and Adverse Reactions Name Dates Details No Known Allergies (Allergy) Onset: 23-May-2018 Status: Active Past Medical History Name Dates Details Jaundice (R17, 782.4) Status: Resolved as of 31-May-2018 Shortness of breath (R06.02, 786.05) Status: Resolved as of 31-May-2018 Tachycardia (R00.0, 785.0) Status: Resolved as of 31-May-2018 Procedures Procedure Dates Details Bone Density Study Completed Comments: 2008 Hysterectomy Completed Comments: 1991 Mammogram Completed Comments: 2012 Tonsillectomy Completed Comments: 1955 Tubal Ligation Completed Comments: 1979 Date Value Details 23-May-2018 Abdomen/Pelvis WITH Contrast Result: Comments: See Note; NOTES: [facility] Imaging Services [address] [place] [address] Abdomen/Pelvis WITH Contrast MR#: [id number] Acct: [id number] Name: ATIF LORENZO Rep #: [id number] : 1950 F 68 From: Jaden Rios MD PCP: Abida Saleem DO Status: REG CLI Study: Abdomen/Pelvis WITH Contrast Date of Exam: 05/23/18 Exam# [id number] Ordering Dr: Aletha Saleem DO STUDY: CT ABDOMEN AND PELVIS WITH CONTRAST REASON FOR EXAM: Female, 68 years old. Jaundice. Shortness of breath and decreased hemoglobin. RADIATION DOSAGE (If Supplied By Facility): CTDIvol = ( 17.98 ) mGy, DLP = ( 1944.26 ) mGycm TECHNIQUE: Transaxial images were obtained from the dome of the diaphragm to the symphysis pubis with oral contrast. 100mL ml of Isovue 300 contrast was adminis tered. Sagittal and coronal images were reconstructed. Individualized dose optimization techniques were used for this CT. COMPARISON: None. FINDINGS: Small bilater al pleural effusions with bibasilar atelectasis and/or infiltrates. The visualized portions of the heart are within normal limits. Normal liver. There is a solitary gallstone. There is a 7.6 mm rounded hypodensity in the medial aspect of the spleen. This is not a typical cyst. Normal pancreas. Normal bilateral adrenal glands. Marked atrophy of the right kidney. Normal left kidney. Moderate sized r enal hernia. Normal small intestine. There is diverticulosis, with thickening of the colon wall, and pericolonic inflammation changes consistent with acute diverticulitis. This is suggestive of mild deg ree of diverticulitis. There is non-visualization of the appendix. There is scattered atherosclerotic calcification of the abdominal aorta, without a demonstrated aneurysm. Normal inferior vena cava. T here is borderline retroperitoneal lymphadenopathy with enlarged nodes no greater than 10mm in the short axis diameter. Normal urinary bladder. There is absence of the uterus consistent with a prior hy sterectomy. Normal abdominal wall. There are degenerative changes of the visualized lumbar spine. CT/Abdomen/Pelvis WITH Contrast IMPRESSION: Sm all bilateral pleural effusions with bibasilar infiltration and/or atelectasis. Moderate sized hiatal hernia. Solitary gallstone. Marked atrophy of the right kidney. Sigmoid diverticulosis and findings suggest a mild degree of noncomplicated sigmoid diverticulitis. Electronically Signed: Jaden Rios MD at 15:10 EDT Tel [phone], Service support , CC: Abida Saleem DO Bank Accountant: Signed 23-May-2018 CTA Chest W/WO Contrast Result: Comments: See Note; NOTES: [facility] Imaging Services [address] [place] [address] CTA Chest W/WO Contrast MR#: [id number] Acct: [id number] Name: ATIF LORENZO Rep #: : 1950 F 68 From: Jaden Rios MD PCP: Abida Saleem DO Status: REG CLI Study: CTA Chest W/WO Contrast Date of Exam: 05/23/18 Exam# [id number] Ordering Dr: Abida Saleem DO STUDY: CTA CHEST REASON FOR EXAM: Female, 68 years old. Jaundice and shortness of breath. Decreased hemoglobin. RADIATION DOSAGE (If Supplied By Facility): CTDIvol = ( 17.98 ) mGy, DLP = ( 1944.26 ) m Gycm TECHNIQUE: The examination was performed with the intravenous administration of 100Ml ml of Isovue 370 contrast material. Post-processing of the angiographic images was performed, with multiplanar reformation and 3D reconstruction. Individualized dose optimization techniques were used for this CT. COMPARISON: None. FINDINGS: Normal enhancement of the main pulmonary artery and right and left pulmonary arteries. Normal enhancement of the bilateral peripheral pulmonary arteries. There is no demonstrated pulmonary embolism. Normal thoracic aorta and visuali zed great vessels. There is no demonstrated aortic dissection. Normal heart and pericardium. Normal mediastinum. Normal hilar regions. Normal visualized trachea and bronchi. The lungs are well expan ded. Small bilateral pleural effusions with bibasilar infiltration and/or atelectasis. Normal chest wall structures. There are degenerative changes of thoracic spine. Marked atrophy of the right kid [place]. Gallstones. Moderate-sized hiatal hernia. CT/CTA Chest W/WO Contrast IMPRESSION: Small bilateral pleural effusions with underlying infiltrat ion and/or atelectasis. Electronically Signed: Jaden Rios MD at 15:12 EDT Tel [phone], Service support , CC: Abida Saleem DO Bank Accountant: Signed Family History Unknown Family Member Name Dates Details Breast Cancer Comments: Sister. Status: Active Cancer Comments: Maternal Grandmother. Status: Active Diabetes Mellitus Comments: Sister. Status: Active Heart Disease Comments: Mother. Maternal Grandfather. Paternal Grandmother. Status: Active Hypertension Comments: Brother. Status: Active Parkinson's Disease Comments: Father. Status: Active Social History Name Dates Details Exercise History: Does not exercise. Status: Active Living Situation: Lives with spouse. Status: Active No Caffeine Use Status: Active No Drug Use Status: Active Non Drinker/No Alcohol Use Status: Active Vital Signs Date Test Result Details :30 Temperature 98.1 f Comments: Method: Temporal Pulse 98 /min Comments: Pattern: Regular Respiration Rate 16 /min Comments: Pattern: Unlabored O2 SAT 97 % Comments: Room air BP Systolic 118 mm[Hg] Comments: Patient Position: Sitting; Cuff Location: Left Arm; Cuff Size: Standard BP Diastolic 79 mm[Hg] Comments: Patient Position: Sitting; Cuff Location: Left Arm; Cuff Size: Standard Weight 209 lb Height 60 in Body Mass Index Calculated 40.82 kg/m2 Body Surface Area Calculated 1.9 m2 82-Xis-639102:10 Pulse 114 /min Comments: Pattern: Regular Respiration Rate 18 /min Comments: Pattern: Unlabored O2 SAT 97 % Comments: Room air BP Systolic 142 mm[Hg] Comments: Patient Position: Sitting; Cuff Location: Left Arm; Cuff Size: Large BP Diastolic 68 mm[Hg] Comments: Patient Position: Sitting; Cuff Location: Left Arm; Cuff Size: Large Weight 220 lb Height 60 in Body Mass Index Calculated 42.97 kg/m2 Body Surface Area Calculated 1.94 m2 Results Date Description Value Details :02 Basic Metabolic Profile (BMP) Comments: [facility] [address] [place], [address] GAP 10 (Normal) Range: 5-15 CO2 26.0 mmol/L (Normal) Range: 21.0-32.0 CL 106 mmol/L (Normal) Range: 98-107 K 4.4 mmol/L (Normal) Range: 3.5-5.1 NA 142 mmol/L (Normal) Range: 136-145 CA 8.9 mg/dL (Normal) Range: 8.5-10.1 BUN/CRE 22.0 {RATIO} (Abnormal) Range: 10-20 EST GFR - AA 56 mL/min (Abnormal) Comments: GFR Calc EST GFR 46 mL/min (Abnormal) Comments: Non- GFR Calc CREAT,SERUM 1.23 mg/dL (Abnormal) Range: 0.55-1.02 Comments: The validity of the calculated GFR AND GFRAA in patients over70 years has not been determined. Clinical correlation isessential. BUN 27 mg/dL (Abnormal) Range: 7-18 GLU 98 mg/dL (Normal) Range: 74-106 Comments: Please note revised GLUCOSE reference range lbhifvatn66/02/2018. 84-Wgb-216958:08 CBC W/Diff, Automated Comments: [facility] [address] [place], [place], [id number] PATH REV Reviewed (Normal) Comments: Severe Microcytic anemia.Clinical correlation necessary.Anthony Knott M.D. 05/24/18 AMENDED REPORT 05/24/18 1531 PATH REV previously reported as: May foll MICROCYTES 2+ (Normal) HYPOCHROMASIA 3+ (Normal) POLYCHROMASIA RARE (Normal) ANISO RARE (Normal) PLT EST ADEQUATE (Normal) Absolute Lymph 1.20 {X10_3/ul} (Normal) Range: 0.83-4.51 Absolute Neut 4.7 {X10_3/uL} (Normal) Range: 2.0-7.7 IM GRAN % 0.200 % (Normal) Range: 0.0-0.9 Comments: IG% - Immature Granulocytes (promyelocytes, myelocytes andmetamyelocytes) > 1% indicates that a LEFT SHIFT is Present. BASO% 0.3 % (Normal) Range: 0-1 EO% 0.5 % (Normal) Range: 0-5 MONO% 6.4 % (Normal) Range: 0-10 LY% 18.8 % (Abnormal) Range: 19-41 NEUT% 73.8 % (Abnormal) Range: 47-70 MPV 10.3 fL (Normal) Range: 6.2-12.0 PLT 355 K/mm3 (Normal) Range: 150-450 RDW SD 37.8 fL (Normal) Range: 35.1-43.9 RDW CV 16.0 % (Abnormal) Range: 11.6-14.6 MCHC 26.2 {g/gl} (Abnormal) Range: 32-36 MCH 18.0 pg (Abnormal) Range: 27.0-32.0 MCV 68.8 fL (Abnormal) Range: 81-99 HCT 17.2 % (Abnormal) Range: 37-47 HGB 4.5 g/dL (Abnormal) Range: 12.0-15.0 Comments: CRITICAL VALUE VERIFIED. CALLED TO TIERA SEQUEIRA [facility] INTERNAL EJLDBHRB37/30/18 1317 Mariella Garner.RESULTS READ BACK BY SAME. RBC 2.50 {M/mm3} (Abnormal) Range: 4.2-5.4 WBC 6.4 K/mm3 (Normal) Range: 4.4-11.0 15-Twz-250015:08 Comprehensive Metabolic Profil Comments: [facility] [address] [place], [address] GAP 10 (Normal) Range: 5-15 CO2 25.0 mmol/L (Normal) Range: 21.0-32.0 CL 109 mmol/L (Abnormal) Range: 98-107 K 4.6 mmol/L (Normal) Range: 3.5-5.1 NA 144 mmol/L (Normal) Range: 136-145 T BILI 0.40 mg/dL (Normal) Range: 0.20-1.00 ALT 20 U/L (Normal) Range: 13-56 ALK P 76 U/L (Normal) Range: 45-117 AST 12 U/L (Abnormal) Range: 15-37 CA 8.7 mg/dL (Normal) Range: 8.5-10.1 A/G 1.2 {RATIO} (Normal) Range: 0.9-2.4 GLOB 3.0 g/dL (Normal) Range: 2.2-4.2 ALB 3.6 g/dL (Normal) Range: 3.2-5.0 T PROT 6.6 g/dL (Normal) Range: 6.4-8.2 BUN/CRE 14.0 {RATIO} (Normal) Range: 10-20 EST GFR - AA 72 mL/min (Normal) Comments: GFR Calc EST GFR 59 mL/min (Abnormal) Comments: Non- GFR Calc CREAT,SERUM 1.00 mg/dL (Normal) Range: 0.55-1.02 Comments: The validity of the calculated GFR AND GFRAA in patients over70 years has not been determined. Clinical correlation isessential. BUN 14 mg/dL (Normal) Range: 7-18 GLU 98 mg/dL (Normal) Range: 74-106 Comments: Please note revised GLUCOSE reference range xkojocnwq19/02/2018. 86-Sqc-600437:08 Erythrocyte Sed Rate Comments: [facility] [address] [place], [address] SED RATE 7 mm/h (Normal) Range: 0-30 82-Zdf-558601:08 C-REACTIVE PROTEIN (85651) Comments: [facility] [address] [place], [address] C-REACTIVE PROT 7.09 mg/L (Abnormal) Range: 0.0-3.0 Comments: C-Reactive Protein (CRP) provides useful information for thediagnosis, therapy and monitoring of inflammatory processesand associated diseases. For the evaluation of Relative Riskfor Cardiovascular Dise ase, a High Sensitivity CRP (HSCRP)should be ordered. 10-Mtv-564012:08 LIPASE (46820) Comments: [facility] [address] [place], [address] LIPASE 115 U/L (Normal) Range: 73-393 18-Ehi-204740:08 AMYLASE (11611) Comments: [facility] [address] [place], [address] AGUSTIN 50 U/L (Normal) Range: 25-115 Plan of Care Name Dates Details Instructions Pulmonary hypertension : Reviewed Diagnostic Tests Indication: Pulmonary hypertension HTN (hypertension), benign : Follow up in 4 weeks Indication: HTN (hypertension), benign HTN (hypertension), benign : HTN/CAD Red Flags Indication: HTN (hypertension), benign HTN (hypertension), benign : Continue Current Prescription(s) Indication: HTN (hypertension), benign Bilateral pleural effusion : Reviewed Diagnostic Tests Indication: Bilateral pleural effusion Other specified anemias : Reviewed Lab Indication: Other specified anemias Other specified anemias : Reviewed Diagnostic Tests Indication: Other specified anemias Other specified anemias : Reviewed Rn Admissions Letter Indication: Other specified anemias BMI 40.0-44.9, adult : Eprescribed prescriptions (G8553) Indication: BMI 40.0-44.9, adult Planned Observations SPEP (59048)Indication: Other specified anemias On: : Request UPEP (20810)Indication: Other specified anemias On: Request MARION TEST, DIRECT (23880)Indication: Other specified anemias On: Request Methymalonic Acid, Serum (84997)Indication: Other specified anemias On: Request VITAMIN B-12 (CYANOCOBALAMIN) (85798)Indication: Other specified anemias On: Request RETICULOCYTE COUNT MANUL (76774)Indication: Other specified anemias On: Request LDH (LD) (LACTATE DEHYDROGENASE) (68052)Indication: Other specified anemias On: Request IRON BINDING CAPACITY (TIBC) (77965)Indication: Other specified anemias On: Request IRON (38859)Indication: Other specified anemias On: Request FERRITIN (81232)Indication: Other specified anemias On: Request CBC W/AUTO DIFF WBC (33326)Indication: Other specified anemias On: Request SED RATE ERYTHROCYTE (87828)Indication: Jaundice On: 94-Qap-835484:04 Request METABOLIC PANEL, COMPREHENSIVE (64431)Indication: Jaundice On: 70-Lhn-409895:02 Request CBC W/AUTO DIFF WBC (79374)Indication: Jaundice On: 36-Xyg-122395:02 Request Planned Encounters Medical; 3 Week FU - On: 28-Jun-2018 8:30 [facility] Abida Saleem DO, DO, Kathleen Planned Procedures CT - Abdomen & Pelvis (IV Contrast On: 23-May-2018 Intent Needed)By: Abida Saleem DO, DO, Kathleen CT - Chest with PE ProtocolBy: On: 23-May-2018 Intent Abida Saleem DO, DO, Kathleen ELECTROCARDIOGRAM, COMPLETE (ECG) On: 23-May-2018 Intent (81928)By: Abida Saleem DO Comments: sinus tachy no acute chg/ poor R wave progression Abida Saleem DO Spirometry (04229)By: [facility], On: 23-May-2018 Intent Abida Winters DO Comments: noraml Instructions Name Dates Details BMI 40.0-44.9, adult : How to access health information online Indication: BMI 40.0-44.9, adult BMI 40.0-44.9, adult : How to access health information online - Detail Indication: BMI 40.0-44.9, adult BMI 40.0-44.9, adult : Patient Instructions Indication: BMI 40.0-44.9, adult Non-smoker : How to access health information online Indication: Non-smoker Non-smoker : How to access health information online - Detail Indication: Non-smoker Non-smoker : Patient Instructions Indication: Non-smoker Encounters Office Visit On: 31-May-2018 14:56 Encounter Diagnosis: Pulmonary hypertension End: 31-May-2018 16:01 [facility] Office Visit On: 31-May-2018 9:22 Encounter Reason: Transition into care - The patient is transitioning into care from a hospital.Encounter Diagnosis: BMI 40.0-44.9, adult, Non-smoker, Jaundice, Tachycardia, Shortness of breath, Other specified anemias, Splenic cyst, Diverticulitis, End: 31-May-2018 10:27 Gallstones, Hiatal hernia, Bilateral pleural effusion, HTN (hypertension), benign [facility] Office Visit On: 23-May-2018 10:59 Encounter Reason: Shortness of Breath - No changes in management were made at the last visit. Symptoms include fatigue, palpitations (I can hear pulse in ears) and cough (some very little per ), while symptoms do End: 23-May-2018 12:12 not include lightheadedness or wheezing. Onset was sudden month(s) ago. There is no known event that preceded symptom onset. The symptoms occur constantly. The patient describes this as moderate in severity and worsening.Encounter Diagnosis: BMI 40.0-44.9, adult, Non-smoker, Shortness of breath, Tachycardia, Jaundice [facility]
--- OUTSIDE RECORDS SUMMARY | 2018-08-19 18:47 | XMS RPT_ITS | Continuity of Care Document ---
:1950 Author Organization [facility] Address [address] [place] [address] Phone Care Team Providers Name Role Phone Abida Saleem DO Unavailable Cynthia Zepeda Unavailable Unavailable Unavailable Unavailable Problems Name Dates [...] Active Pregnancies () Comments: 4. Status: Active Splenic cyst (D73.4, 289.59) Status: [...] WITH Contrast Result: Comments: See Note; NOTES: [facility] [address] [place] [address] Abdomen/Pelvis WITH Contrast MR#: [id number] Acct: [id number] Name: ATIF LORENZO Rep #: [id number] : 1950 F 68 From: Jaden Rios MD PCP: Abida Saleem DO Status: REG CLI Study: Abdomen/Pelvis WITH Contrast Date of Exam: 05/23/18 Exam# [id number] Ordering Dr: Aletha Saleem DO STUDY: CT [...] Jaden Rios MD at 15:10 EDT Tel [phone], Service support , CC: Abida Saleem DO Sales Representative Facility Services: Signed 23-May-2018 CTA Chest W/WO Contrast Result: Comments: See Note; NOTES: [facility] [address] [place] [address] CTA Chest W/WO Contrast MR#: [id number] Acct: [id number] Name: ATIF LORENZO Rep #: [id number] : 1950 F 68 From: Jaden Rios MD PCP: Abida Saleem DO Status: REG CLI Study: CTA Chest W/WO Contrast Date of Exam: 05/23/18 Exam# [id number] Ordering Dr: Abida Saleem DO STUDY: CTA [...] Jaden Rios MD at 15:12 EDT Tel [phone], Service support , CC: Abida Saleem DO Sales Representative Facility Services: Signed Family History Unknown Family Member Name [...] kg/m2 Body Surface Area Calculated 1.9 m2 85-Uka-909866:10 Pulse 114 /min Comments: Pattern: Regular Respiration [...] Details :02 Basic Metabolic Profile (BMP) Comments: [facility] [address], [place], [id number] GAP 10 (Normal) Range: 5-15 CO2 26.0 [...] Comments: Please note revised GLUCOSE reference range rqidfdcpe25/02/2018. 66-Bnm-790011:08 CBC W/Diff, Automated Comments: [facility] [address] [place], [place], [address] PATH REV Reviewed (Normal) Comments: Severe Microcytic [...] CRITICAL VALUE VERIFIED. CALLED TO TIERA SEQUEIRA [facility] INTERNAL KCFWELEZ74/30/18 1317 Mariella [place].RESULTS READ BACK BY SAME. RBC 2.50 {M/mm3} (Abnormal) Range: 4.2-5.4 WBC 6.4 K/mm3 (Normal) Range: 4.4-11.0 72-Nnw-440294:08 Comprehensive Metabolic Profil Comments: [facility] [address] [place], [address] GAP 10 (Normal) Range: 5-15 CO2 25.0 [...] Comments: Please note revised GLUCOSE reference range vuwmfvmvb24/02/2018. 28-Djw-352143:08 Erythrocyte Sed Rate Comments: [facility] [address] [place], [address] SED RATE 7 mm/h (Normal) Range: 0-30 47-Qku-140969:08 C-REACTIVE PROTEIN (23530) Comments: [facility] [address] [place], [address] C-REACTIVE PROT 7.09 mg/L (Abnormal) Range: 0.0-3.0 Comments: C-Reactive Protein (CRP) provides useful information for thediagnosis, therapy and monitoring of inflammatory processesand associated diseases. For the evaluation of Relative Riskfor Cardiovascular Dise ase, a High Sensitivity CRP (HSCRP)should be ordered. 35-Aqo-337667:08 LIPASE (38449) Comments: [facility] [address] [place], [address] LIPASE 115 U/L (Normal) Range: 73-393 13-Giw-308443:08 AMYLASE (62101) Comments: [facility] [address] [place], [address] AGUSTIN 50 U/L (Normal) Range: 25-115 Plan of Care Name Dates Details Instructions HTN (hypertension), benign : Follow up in [...] specified anemias Other specified anemias : Reviewed Print Producer Letter Indication: Other specified anemias BMI 40.0-44.9, adult : Eprescribed prescriptions (G8553) Indication: BMI 40.0-44.9, adult Planned Observations SPEP (41416)Indication: Other specified anemias On: 9-Uim-371807:22 Request UPEP (13794)Indication: Other specified anemias On: Request MARION TEST, DIRECT (91907)Indication: Other specified anemias On: Request Methymalonic Acid, Serum (67658)Indication: Other specified anemias On: Request VITAMIN B-12 (CYANOCOBALAMIN) (20807)Indication: Other specified anemias On: Request RETICULOCYTE COUNT MANUL (39554)Indication: Other specified anemias On: Request LDH (LD) (LACTATE DEHYDROGENASE) (31778)Indication: Other specified anemias On: Request IRON BINDING CAPACITY (TIBC) (31197)Indication: Other specified anemias On: Request IRON (50588)Indication: Other specified anemias On: Request FERRITIN (55715)Indication: Other specified anemias On: Request CBC W/AUTO DIFF WBC (17717)Indication: Other specified anemias On: Request SED RATE ERYTHROCYTE (75398)Indication: Jaundice On: 41-Ccy-324520:04 Request METABOLIC PANEL, COMPREHENSIVE (07516)Indication: Jaundice On: 88-Spr-004165:02 Request CBC W/AUTO DIFF WBC (46313)Indication: Jaundice On: 05-Hjo-012411:02 Request Planned Encounters Medical; 3 Week FU - On: 28-Jun-2018 8:30 [facility] Abida Saleem DO, DO, Kathleen Planned Procedures CT - Abdomen & Pelvis (IV Contrast On: 23-May-2018 Intent Needed)By: Abida Saleem DO, DO, Kathleen CT - Chest with PE ProtocolBy: On: 23-May-2018 Intent Abida Saleem DO, DO, Kathleen ELECTROCARDIOGRAM, COMPLETE (ECG) On: 23-May-2018 Intent (34687)By: Abida Saleem DO Comments: sinus tachy no acute chg/ poor R wave progression Abida Saleem DO Spirometry (29877)By: [facility], On: 23-May-2018 Intent Abida Winters DO Comments: lesley Instructions Name Dates Details BMI 40.0-44.9, adult [...] Indication: Non-smoker Encounters Office Visit On: 31-May-2018 9:22 Encounter Reason: [...]
--- OUTSIDE RECORDS SUMMARY | 2018-08-19 18:47 | XMS RPT_ITS | Continuity of Care Document ---
:1950 Author Organization [facility] Address [address] [facility] [facility] [address] [place] [address] Phone Care Team Providers Name Role Phone Abida Saleem DO Unavailable FRANCY Dumont Unavailable Unavailable Unavailable Unavailable Problems Name Dates Details BMI 40.0-44.9, adult (Z68.41, V85.41) Status: Active Deliveries (Parity) Comments: 4. Status: Active Jaundice (R17, 782.4) Status: Active Non-smoker (Z78.9, V49.89) Status: Active Pregnancies () Comments: 4. Status: Active Shortness of breath (R06.02, 786.05) Status: Active Tachycardia (R00.0, 785.0) Status: Active Medications Name Dates Details Aleve 220 MG Oral Capsule Active 1 qhs (220 MG) Aspirin 81 MG Oral Tablet Active 1 qd (81 MG) Glucosamine Chondroitin Complx Oral Capsule Active 1 qd Ultra Womens Pack Miscellaneous Active 1 qd Vitamin B Complex Oral Tablet Active 1 qd Allergies and Adverse Reactions Name Dates Details No Known Allergies (Allergy) Onset: 23-May-2018 Status: Active Procedures Procedure Dates Details Bone Density Study Completed Comments: 2008 Hysterectomy Completed Comments: 1991 Mammogram Completed Comments: 2012 Tonsillectomy Completed Comments: 1955 Tubal Ligation Completed Comments: 1979 Date Value Details 23-May-2018 Abdomen/Pelvis WITH Contrast Result: Comments: See Note; NOTES: [facility] Imaging Services [address] [place] [address] Abdomen/Pelvis WITH Contrast MR#: [id number] Acct: [id number] Name: ATIF LORENZO Rep #: [id number] : 1950 F 68 From: Jaden Rios MD PCP: Abida Saleem DO Status: REG CLI Study: Abdomen/Pelvis WITH Contrast Date of Exam: 05/23/18 Exam# [id number] Ordering Dr: Aletha Saleem DO STUDY: CT [...] Jaden Rios MD at 15:10 EDT Tel [phone], Service support , CC: Abida Saleem DO Air Quality Engineer: Signed 23-May-2018 CTA Chest W/WO Contrast Result: Comments: See Note; NOTES: [facility] Imaging Services [address] [place] [address] CTA Chest W/WO Contrast MR#: [id number] Acct: [id number] Name: ATIF LORENZO Rep #: [id number] : 1950 F 68 From: Jaden Rios MD PCP: Abida Saleem DO Status: REG CLI Study: CTA Chest W/WO Contrast Date of Exam: 05/23/18 Exam# [id number] Ordering Dr: bAida Saleem DO STUDY: CTA CHEST REASON FOR [...] Jaden Rios MD at 15:12 EDT Tel [phone], Service support , CC: Abida Saleem DO Air Quality Engineer: Signed Family History Unknown Family Member Name [...] Active Vital Signs Date Test Result Details :10 Pulse 114 /min Comments: Pattern: Regular Respiration [...] 1.94 m2 Results Date Description Value Details 71-Lgc-313371:08 CBC W/Diff, Automated Comments: [facility] [address] [place], [address] PATH REV May foll (Normal) MICROCYTES 2+ (Normal) HYPOCHROMASIA 3+ (Normal) POLYCHROMASIA [...] CRITICAL VALUE VERIFIED. CALLED TO TIERA SEQUEIRA [facility] INTERNAL ERYVRUGB22/30/18 1317 Mariella Garner.RESULTS READ BACK BY SAME. RBC 2.50 {M/mm3} (Abnormal) Range: 4.2-5.4 WBC 6.4 K/mm3 (Normal) Range: 4.4-11.0 37-Rgg-176447:08 Comprehensive Metabolic Profil Comments: [facility] [address] [place], [address] GAP 10 (Normal) Range: 5-15 CO2 25.0 [...] Comments: Please note revised GLUCOSE reference range pgqvnluyv08/02/2018. 76-Snm-677823:08 Erythrocyte Sed Rate Comments: [facility] [address] [place], [place], [id number] SED RATE 7 mm/h (Normal) Range: 0-30 91-Xtl-334605:08 C-REACTIVE PROTEIN (19201) Comments: [facility] [address] [place], [place], [address] C-REACTIVE PROT 7.09 mg/L (Abnormal) Range: 0.0-3.0 Comments: C-Reactive Protein (CRP) provides useful information for thediagnosis, therapy and monitoring of inflammatory processesand associated diseases. For the evaluation of Relative Riskfor Cardiovascular Dise ase, a High Sensitivity CRP (HSCRP)should be ordered. 01-Ffd-271106:08 LIPASE (01075) Comments: [facility] [address] [place], [address] LIPASE 115 U/L (Normal) Range: 73-393 14-Axb-920462:08 AMYLASE (92106) Comments: [facility] [address] [place], [address] AGUSTIN 50 U/L (Normal) Range: 25-115 Plan of Care Name Dates Details Planned Observations SED RATE ERYTHROCYTE (34471)Indication: Jaundice On: 28-Nvf-891669:04 Request METABOLIC PANEL, COMPREHENSIVE (66392)Indication: Jaundice On: 04-Rhc-814965:02 Request CBC W/AUTO DIFF WBC (99047)Indication: Jaundice On: 64-Lbc-452132:[address] - Abdomen & Pelvis (IV Contrast On: 23-May-2018 Intent Needed)By: Abida Saleem DO, DO, Kathleen CT - Chest with PE ProtocolBy: On: 23-May-2018 Intent Abida Saleem DO, DO, Kathleen ELECTROCARDIOGRAM, COMPLETE (ECG) On: 23-May-2018 Intent (58006)By: Abida Saleem DO Comments: sinus tachy no acute chg/ poor R wave progression Abida Saleem DO Spirometry (96016)By: [facility], On: 23-May-2018 Intent Abida Winters DO Comments: noraml Instructions Name Dates Details Non-smoker : How to access health information online Indication: Non-smoker Non-smoker : How to access health information online - Detail Indication: Non-smoker Non-smoker : Patient Instructions Indication: Non-smoker Encounters Office Visit On: 23-May-2018 10:59 Encounter Reason: [...]
--- OUTSIDE RECORDS SUMMARY | 2018-08-19 18:47 | XMS RPT_ITS | Continuity of Care Document ---
:1950 Author Organization [facility] Address [address] [place] [address] Phone Care Team Providers Name Role Phone Abida Saleem DO Unavailable CarissastephanieEnrique Unavailable Gravius, Cynthia Unavailable Unavailable Tim, NETWORK ARCHITECT MANAGER Tiffany Unavailable Unavailable XAVI Fitch Unavailable Unavailable Unavailable Unavailable Problems Name Dates [...] 289.59) Status: Active Medications Name Dates Details Glucosamine Chondroitin Complx Oral Capsule Active 1 qd Iron 65 MG Oral Tablet Active 1 daily (65 MG) Lisinopril 5 MG Oral Tablet 1 Tablet daily for 90 days Quantity: 90 {Tablet} Refills: 3 Ordered:28-Jun-2018 Sarai Saleem DO, DO, Kathleen Start : 28-Jun-2018 Active Ultra Womens Pack Miscellaneous 1 qd Active Vitamin B Complex Oral Tablet 1 qd Active Aleve 220 MG Oral Capsule 1 qhs (220 MG) Inactive Aspirin 81 MG Oral Tablet 1 qd (81 MG) Inactive Allergies and Adverse Reactions Name Dates Details [...] WITH Contrast Result: Comments: See Note; NOTES: [facility] Imaging Services [address] [place] [address] Abdomen/Pelvis WITH Contrast MR#: [id number] Acct: [id number] Name: ATIF LORENZO Rep #: [id number] : 1950 F 68 From: Jaden Rios MD PCP: Abida Saleem DO Status: REG CLI Study: Abdomen/Pelvis WITH Contrast Date of Exam: 05/23/18 Exam# [id number] Ordering Dr: Aletha Saleem DO STUDY: CT [...] Jaden Rios MD at 15:10 EDT Tel [phone], Service support , CC: Abida Saleem DO Trust Operations Assistant: Signed 23-May-2018 CTA Chest W/WO Contrast Result: Comments: See Note; NOTES: [facility] Imaging Services [address] [place] [address] CTA Chest W/WO Contrast MR#: [id number] Acct: [id number] Name: ATIF LORENZO Rep #: [id number] : 1950 F 68 From: Jaden Rios MD PCP: Abida Saleem DO Status: REG CLI Study: CTA Chest W/WO Contrast Date of Exam: 05/23/18 Exam# [id number] Ordering Dr: Abida Saleem DO STUDY: CTA [...] Jaden Rios MD at 15:12 EDT Tel [phone], Service support , CC: Abida Saleem DO Trust Operations Assistant: Signed Family History Unknown Family Member Name [...] Active Vital Signs Date Test Result Details :34 Pulse 100 /min Comments: Pattern: Regular Respiration Rate 18 /min Comments: Pattern: Unlabored O2 SAT 98 % Comments: Room air BP Systolic 128 mm[Hg] Comments: Patient Position: Standing; Cuff Location: Left Arm; Cuff Size: Large BP Diastolic 82 mm[Hg] Comments: Patient Position: Standing; Cuff Location: Left Arm; Cuff Size: Large Weight 209.125 lb Height 60 in Body Mass Index Calculated 40.84 kg/m2 Body Surface Area Calculated 1.9 m2 :30 Temperature 98.1 f Comments: Method: Temporal [...] kg/m2 Body Surface Area Calculated 1.9 m2 :10 Pulse 114 /min Comments: Pattern: Regular [...] 1.94 m2 Results Date Description Value Details 9-Ivs-274017:35 Liver Profile Comments: [facility] [address] [place], [place], [id number] D BILI 0.13 mg/dL (Normal) Range: 0.00-0.30 T BILI 0.30 mg/dL (Normal) Range: 0.20-1.00 ALT 36 U/L (Normal) Range: 13-56 ALK P 66 U/L (Normal) Range: 45-117 AST 29 U/L (Normal) Range: 15-37 GLOB 3.4 g/dL (Normal) Range: 2.2-4.2 ALB 3.6 g/dL (Normal) Range: 3.2-5.0 T PROT 7.0 g/dL (Normal) Range: 6.4-8.2 6-Hvt-022848:39 CBC WITH MANUAL DIFF (13019) Comments: PATIENT NOT FASTINGPERFORMED BY: [facility] CenterGldsto4089 [facility] [id number] Hematology Comments: Note: (Normal) Comments: Manual differential was performed. Immature Grans (Abs) 0.0 {x10E3/uL} (Normal) Range: 0.0-0.1 Immature Granulocytes 0 % (Normal) Baso (Absolute) 0.0 {x10E3/uL} (Normal) Range: 0.0-0.2 Eos (Absolute) 0.1 {x10E3/uL} (Normal) Range: 0.0-0.4 Monocytes(Absolute) 0.2 {x10E3/uL} (Normal) Range: 0.1-0.9 Lymphs (Absolute) 1.8 {x10E3/uL} (Normal) Range: 0.7-3.1 Neutrophils (Absolute) 2.8 {x10E3/uL} (Normal) Range: 1.4-7.0 Basos 1 % (Normal) Eos 2 % (Normal) Monocytes 5 % (Normal) Lymphs 36 % (Normal) Neutrophils 56 % (Normal) Platelets 284 {x10E3/uL} (Normal) Range: 150-379 MCHC 30.4 g/dL (Abnormal) Range: 31.5-35.7 MCH 24.5 pg (Abnormal) Range: 26.6-33.0 MCV 81 fL (Normal) Range: 79-97 Hematocrit 33.2 % (Abnormal) Range: 34.0-46.6 Hemoglobin 10.1 g/dL (Abnormal) Range: 11.1-15.9 RBC 4.12 {x10E6/uL} (Normal) Range: 3.77-5.28 Comments: Anisocytosis present. WBC 4.9 {x10E3/uL} (Normal) Range: 3.4-10.8 6-Hxc-960322:03 SPE (36698) Comments: PATIENT NOT FASTINGPERFORMED BY: [facility] [id number] BY: [address] [id number] PDF . (Normal) Please note: SPRCS (Normal) Comments: Protein electrophoresis scan will follow via computer, mail, orcourier delivery. A/G Ratio 1.0 (Normal) Range: 0.7-1.7 Globulin, Total 3.5 g/dL (Normal) Range: 2.2-3.9 M-Brian Not Observed g/dL (Normal) Gamma Globulin 0.9 g/dL (Normal) Range: 0.4-1.8 Beta Globulin 1.3 g/dL (Normal) Range: 0.7-1.3 Rtecd-4-Cmzvraqe 0.9 g/dL (Normal) Range: 0.4-1.0 Smjwn-2-Sabqyeir 0.3 g/dL (Normal) Range: 0.0-0.4 Albumin 3.6 g/dL (Normal) Range: 2.9-4.4 Protein, Total 7.1 g/dL (Normal) Range: 6.0-8.5 2-Seq-738776:03 UP (10701) Comments: PATIENT NOT FASTINGPERFORMED BY: homedeco2u70 [facility] [id number] BY: [address] [id number] PDF . (Normal) Please note: SPRCS (Normal) Comments: Protein electrophoresis scan will follow via computer, mail, orcourier delivery. M-Brian, % Not Observed % (Normal) Gamma Globulin, U 15.5 % (Normal) Beta Globulin, U 24.0 % (Normal) Vnwgy-9-Qpnvqtso, U 14.0 % (Normal) Lerih-3-Rmkgeduo, U 15.0 % (Normal) Albumin, U 31.5 % (Normal) Protein,Total,Urine <4.0 mg/dL (Normal) Comments: Verified by repeat analysis 7-Zxg-747116:03 NATA TEST, DIRECT Comments: PATIENT NOT FASTINGPERFORMED BY: [address] [id number] BY: [address] [id number] (74170) Nata', Direct Negative (Normal) 6-Uyk-784936:03 Methymalonic Acid, Serum Comments: PATIENT NOT FASTINGPERFORMED BY: [facility]DMSNewton [facility] CenterEnipdr7[address] [place] [address] [id number] BY: [address] [id number] (26748) Disclaimer: SPR (Normal) Comments: This test was developed and its performance characteristicsdetermined by [employer]. It has not been cleared or approvedby the Food and Drug Administration. Methylmalonic Acid, Serum 275 nmol/L (Normal) Range: 0-378 0-Cud-145257:03 VITAMIN B-12 (CYANOCOBALAMIN) Comments: PATIENT NOT FASTINGPERFORMED BY: [place]DM[place] [id number] [facility] [id number] BY: [address] [id number] (45960) Vitamin B12 1703 pg/mL (Abnormal) Range: 232-1245 7-Nct-215168:03 RETICULOCYTE COUNT MANUL Comments: PATIENT NOT FASTINGPERFORMED BY: [address]DMS[address] [id number] BY: [address] [id number] (53038) Reticulocyte Count 0.6 % (Normal) Range: 0.6-2.6 3-Xhg-777190:03 LDH (LD) (LACTATE Comments: PATIENT NOT FASTINGPERFORMED BY: [place] [id number] [facility] [id number] BY: [address] [id number] DEHYDROGENASE) (08415) LDH 254 [iU]/L (Abnormal) Range: 119-226 0-Mwt-069734:03 IRON BINDING CAPACITY Comments: PATIENT NOT FASTINGPERFORMED BY: [address] [id number] BY: [address] [id number] (TIBC) (01358) Iron Saturation 20 % (Normal) Range: 15-55 Iron 101 ug/dL (Normal) Range: 27-139 UIBC 397 ug/dL (Abnormal) Range: 118-369 Iron Bind.Cap.(TIBC) 498 ug/dL (Abnormal) Range: 250-450 6-Tnn-112916:03 FERRITIN (68912) Comments: PATIENT NOT FASTINGPERFORMED BY: [place] [id number] [facility] [id number] BY: [address] [id number] Ferritin, Serum 80 ng/mL (Normal) Range: 15-150 0-Xxy-158942:03 CBC W/AUTO DIFF WBC Comments: PATIENT NOT FASTINGPERFORMED BY: [place] [id number] [facility] [id number] BY: [address] [id number] (12293) Hematology Comments: Note: (Normal) Comments: Verified by microscopic examination. Immature Grans (Abs) 0.0 {x10E3/uL} (Normal) Range: 0.0-0.1 Immature Granulocytes 0 % (Normal) Baso (Absolute) 0.1 {x10E3/uL} (Normal) Range: 0.0-0.2 Eos (Absolute) 0.1 {x10E3/uL} (Normal) Range: 0.0-0.4 Monocytes(Absolute) 0.2 {x10E3/uL} (Normal) Range: 0.1-0.9 Lymphs (Absolute) 1.3 {x10E3/uL} (Normal) Range: 0.7-3.1 Neutrophils (Absolute) 2.6 {x10E3/uL} (Normal) Range: 1.4-7.0 Basos 1 % (Normal) Eos 3 % (Normal) Monocytes 5 % (Normal) Lymphs 31 % (Normal) Neutrophils 60 % (Normal) Platelets 274 {x10E3/uL} (Normal) Range: 150-379 Comments: Platelets appear clumped. RDW 26.3 % (Abnormal) Range: 12.3-15.4 MCHC 29.3 g/dL (Abnormal) Range: 31.5-35.7 MCH 22.8 pg (Abnormal) Range: 26.6-33.0 MCV 78 fL (Abnormal) Range: 79-97 Hematocrit 36.5 % (Normal) Range: 34.0-46.6 Hemoglobin 10.7 g/dL (Abnormal) Range: 11.1-15.9 RBC 4.70 {x10E6/uL} (Normal) Range: 3.77-5.28 WBC 4.2 {x10E3/uL} (Normal) Range: 3.4-10.8 30-May-20189:02 Basic Metabolic Profile (BMP) Comments: [facility] [address] [place], [address] GAP 10 (Normal) Range: 5-15 CO2 26.0 [...] Comments: Please note revised GLUCOSE reference range beorhlvws06/02/2018. 20-Mpw-097552:08 CBC W/Diff, Automated Comments: [facility] [address] [place], [address] PATH REV Reviewed (Normal) Comments: Severe Microcytic [...] CRITICAL VALUE VERIFIED. CALLED TO TIERA SEQUEIRA [facility] INTERNAL MKQVCQWU91/30/18 1317 Mariella Garner.RESULTS READ BACK BY SAME. RBC 2.50 {M/mm3} (Abnormal) Range: 4.2-5.4 WBC 6.4 K/mm3 (Normal) Range: 4.4-11.0 23-Ssf-912229:08 Comprehensive Metabolic Profil Comments: [facility] [address] [place], [place], [address] GAP 10 (Normal) Range: 5-15 CO2 25.0 [...] Comments: Please note revised GLUCOSE reference range uczjotxol21/02/2018. 68-Kih-671364:08 Erythrocyte Sed Rate Comments: [facility] [address] [place], [address] SED RATE 7 mm/h (Normal) Range: 0-30 10-Snk-952527:08 C-REACTIVE PROTEIN (46146) Comments: [facility] [address] [place], [id number](236) C-REACTIVE PROT 7.09 mg/L (Abnormal) Range: 0.0-3.0 Comments: C-Reactive Protein (CRP) provides useful information for thediagnosis, therapy and monitoring of inflammatory processesand associated diseases. For the evaluation of Relative Riskfor Cardiovascular Dise ase, a High Sensitivity CRP (HSCRP)should be ordered. 39-Tkb-575585:08 LIPASE (80138) Comments: [facility] [address] [place], [address] LIPASE 115 U/L (Normal) Range: 73-393 36-Gmh-499783:08 AMYLASE (09183) Comments: [facility] [address] [place], [address] AGUSTIN 50 U/L (Normal) Range: 25-115 Plan [...] specified anemias Other specified anemias : Reviewed [place] Roofer Letter Indication: Other specified anemias BMI 40.0-44.9, adult : Eprescribed prescriptions (G8553) Indication: BMI 40.0-44.9, adult Planned Observations IRON (69846)Indication: Other specified anemias On: 7-Nti-183264:22 Request SED RATE ERYTHROCYTE (79927)Indication: Jaundice On: 37-Rdp-034421:04 Request METABOLIC PANEL, COMPREHENSIVE (81069)Indication: Jaundice On: 08-Opx-766710:02 Request CBC W/AUTO DIFF WBC (36375)Indication: Jaundice On: 98-Shx-320009:[address] - Abdomen & Pelvis (IV Contrast On: 23-May-2018 Intent Needed)By: Abida Saleem DO, DO, Kathleen CT - Chest with PE ProtocolBy: On: 23-May-2018 Intent Abida Saleem DO, DO, Kathleen ELECTROCARDIOGRAM, COMPLETE (ECG) On: 23-May-2018 Intent (44892)By: Abida Saleem DO Comments: sinus tachy no acute chg/ poor R wave progression Abida Saleem DO Spirometry (90209)By: [facility], On: 23-May-2018 Intent Abida Winters [...] Non-smoker : Patient Instructions Indication: Non-smoker Encounters Review On: 28-Jun-2018 8:31 Encounter Reason: Follow up tests - Date: (06/26/18 labs).Encounter Diagnosis: BMI 40.0-44.9, adult, Non-smoker, HTN (hypertension), benign [facility] Lab Order On: 08-Jun-2018 16:13 Encounter Diagnosis: Other specified anemias End: 08-Jun-2018 16:13 [facility] Office Visit On: 31-May-2018 14:56 Encounter Diagnosis: [...]
--- OUTSIDE RECORDS SUMMARY | 2018-08-19 18:47 | XMS RPT_ITS | Continuity of Care Document ---
:1950 Author Organization [facility] Address [address] [facility] [address] [place] [address] Phone Care Team Providers Name Role Phone Abida Saleem DO Unavailable Enrique Herman Unavailable Gravius, Cynthia Unavailable Unavailable XAVI Fitch Unavailable Unavailable Messenger, TROLLEY CAR OVERHAULER Tiffany Unavailable Unavailable Unavailable Unavailable Problems Name [...] WITH Contrast Result: Comments: See Note; NOTES: [facility] Imaging Services [address] [place] [address] Abdomen/Pelvis WITH Contrast MR#: [id number] Acct: [id number] Name: ATIF LORENZO Rep #: [id number] : 1950 F 68 From: Jaden Rios MD PCP: Abida Saleem DO Status: REG CLI Study: Abdomen/Pelvis WITH Contrast Date of Exam: 05/23/18 Exam# [id number] Ordering Dr: Aletha Saleem DO STUDY: CT [...] Jaden Rios MD at 15:10 EDT Tel [phone], Service support , CC: Abida Saleem DO Tone Cabinet Assembler: Signed 23-May-2018 CTA Chest W/WO Contrast Result: Comments: See Note; NOTES: [facility] Imaging Services [address] [place] [address] CTA Chest W/WO Contrast MR#: [id number] Acct: [id number] Name: ATIF LORENZO Rep #: [id number] : 1950 F 68 From: Jaden Rios MD PCP: Abida Saleem DO Status: REG CLI Study: CTA Chest W/WO Contrast Date of Exam: 05/23/18 Exam# [id number] Ordering Dr: Abida Saleem DO STUDY: CTA [...] Jaden Rios MD at 15:12 EDT Tel [phone], Service support , CC: Abida Saleem DO Tone Cabinet Assembler: Signed Family History Unknown Family Member Name [...] kg/m2 Body Surface Area Calculated 1.9 m2 34-Xaz-239590:10 Pulse 114 /min Comments: Pattern: Regular Respiration [...] 1.94 m2 Results Date Description Value Details :03 SPEP (74032) Comments: PATIENT NOT FASTINGPERFORMED BY: CB [facility] Cdthvo5392 [facility] [id number] BY: BN [facility] [address] [id number] PDF . (Normal) Please note: SPRCS (Normal) Comments: Protein electrophoresis scan will follow via computer, mail, orcourier delivery. A/G Ratio 1.0 (Normal) Range: 0.7-1.7 Globulin, Total 3.5 g/dL (Normal) Range: 2.2-3.9 M-Brian Not Observed g/dL (Normal) Gamma Globulin 0.9 g/dL (Normal) Range: 0.4-1.8 Beta Globulin 1.3 g/dL (Normal) Range: 0.7-1.3 Rihqt-6-Tnjiolmb 0.9 g/dL (Normal) Range: 0.4-1.0 Qwxvu-1-Bpgxwfgj 0.3 g/dL (Normal) Range: 0.0-0.4 Albumin 3.6 g/dL (Normal) Range: 2.9-4.4 Protein, Total 7.1 g/dL (Normal) Range: 6.0-8.5 4-Dvu-971298:03 UPEP (48034) Comments: PATIENT NOT FASTINGPERFORMED BY: [facility]ric SemiconductorRehoboth McKinley Christian Health Care ServicesPfrmgx4232 [facility] [id number] BY: [address] [id number] PDF . (Normal) Please note: SPRCS (Normal) Comments: Protein electrophoresis scan will follow via computer, mail, orcourier delivery. M-Brian, % Not Observed % (Normal) Gamma Globulin, U 15.5 % (Normal) Beta Globulin, U 24.0 % (Normal) Vadnr-0-Lvamsqos, U 14.0 % (Normal) Vvryu-3-Nyfubqsg, U 15.0 % (Normal) Albumin, U 31.5 % (Normal) Protein,Total,Urine <4.0 mg/dL (Normal) Comments: Verified by repeat analysis 4-Cvg-024293:03 NATA TEST, DIRECT Comments: PATIENT NOT FASTINGPERFORMED BY: [employer] [id number] BY: [address] [id number] (66790) Nata', Direct Negative (Normal) 8-Cwt-087581:03 Methymalonic Acid, Serum Comments: PATIENT NOT FASTINGPERFORMED BY: [facility] SemiconductorTara [place] 6313370 [facility] [id number] BY: [address] [id number] (61058) Disclaimer: SPRCS (Normal) Comments: This test was developed and its performance characteristicsdetermined by [employer]. It has not been cleared or approvedby the Food and Drug Administration. Methylmalonic Acid, Serum 275 nmol/L (Normal) Range: 0-378 4-Uri-513107:03 VITAMIN B-12 (CYANOCOBALAMIN) Comments: PATIENT NOT FASTINGPERFORMED BY: [employer] LabsTara [place] 6313370 [facility] [id number] BY: [address] [id number] (39369) Vitamin B12 1703 pg/mL (Abnormal) Range: 232-1245 8-Ado-009503:03 RETICULOCYTE COUNT MANUL Comments: PATIENT NOT FASTINGPERFORMED BY: [facility] LabsSouthern Ocean Medical CenterLjflkz210[address] [place] [address] [id number] BY: [address] [id number] (09655) Reticulocyte Count 0.6 % (Normal) Range: 0.6-2.6 3-Acn-356880:03 LDH (LD) (LACTATE Comments: PATIENT NOT FASTINGPERFORMED BY: [employer] [id number] BY: [address] [id number] DEHYDROGENASE) (83736) LDH 254 [iU]/L (Abnormal) Range: 119-226 4-Alr-421843:03 IRON BINDING CAPACITY Comments: PATIENT NOT FASTINGPERFORMED BY: [facility] LabsT[place] 6313370 [facility] [id number] BY: [address] [id number] (TIBC) (78626) Iron Saturation 20 % (Normal) Range: 15-55 Iron 101 ug/dL (Normal) Range: 27-139 UIBC 397 ug/dL (Abnormal) Range: 118-369 Iron Bind.Cap.(TIBC) 498 ug/dL (Abnormal) Range: 250-450 6-Yew-728073:03 FERRITIN (70485) Comments: PATIENT NOT FASTINGPERFORMED BY: LabJust[place] [address] [facility] [id number] BY: [employer] [id number] Ferritin, Serum 80 ng/mL (Normal) Range: 15-150 8-Kqz-306943:03 CBC W/AUTO DIFF WBC Comments: PATIENT NOT FASTINGPERFORMED BY: [facility] LabsSouthern Ocean Medical CenterLzlths1923 [facility] [id number] BY: [employer] [id number] (97926) Hematology Comments: Note: (Normal) Comments: Verified by [...] 3.4-10.8 30-May-20189:02 Basic Metabolic Profile (BMP) Comments: [facility] [address] [place], [place], [id number] GAP 10 (Normal) Range: 5-15 CO2 26.0 [...] Comments: Please note revised GLUCOSE reference range /02/2018. 22-Zud-063823:08 CBC W/Diff, Automated Comments: [facility] [address] [place], [place], [address] PATH REV Reviewed (Normal) Comments: Severe Microcytic [...] CRITICAL VALUE VERIFIED. CALLED TO TIERA SEQUEIRA [facility] INTERNAL TGUTABPH08/30/18 1317 Mariella Garner.RESULTS READ BACK BY SAME. RBC 2.50 {M/mm3} (Abnormal) Range: 4.2-5.4 WBC 6.4 K/mm3 (Normal) Range: 4.4-11.0 02-Nwi-078850:08 Comprehensive Metabolic Profil Comments: [facility] [address] [place], [address] GAP 10 (Normal) Range: 5-15 CO2 25.0 [...] Comments: Please note revised GLUCOSE reference range eujnxfciq15/02/2018. 93-Irb-169923:08 Erythrocyte Sed Rate Comments: [facility] [address] [place], [address] SED RATE 7 mm/h (Normal) Range: 0-30 81-Zxx-198715:08 C-REACTIVE PROTEIN (14968) Comments: [facility] [address] [place], [address] C-REACTIVE PROT 7.09 mg/L (Abnormal) Range: 0.0-3.0 Comments: C-Reactive Protein (CRP) provides useful information for thediagnosis, therapy and monitoring of inflammatory processesand associated diseases. For the evaluation of Relative Riskfor Cardiovascular Dise ase, a High Sensitivity CRP (HSCRP)should be ordered. 00-Eyi-144137:08 LIPASE (37782) Comments: [facility] [address] [place], [address] LIPASE 115 U/L (Normal) Range: 73-393 38-Aga-077878:08 AMYLASE (65269) Comments: [facility] [address] [place], [address] AGUSTIN 50 U/L (Normal) Range: 25-115 Plan [...] specified anemias Other specified anemias : Reviewed Regasification Plant Operator Letter Indication: Other specified anemias BMI 40.0-44.9, adult : Eprescribed prescriptions (G8553) Indication: BMI 40.0-44.9, adult Planned Observations CBC WITH MANUAL DIFF (11338)Indication: Other specified anemias On: 73-Axh-975823:13 Request IRON (18195)Indication: Other specified anemias On: 7-Pgb-051122:22 Request SED RATE ERYTHROCYTE (33381)Indication: Jaundice On: 75-Efm-589247:04 Request METABOLIC PANEL, COMPREHENSIVE (40239)Indication: Jaundice On: 51-Dby-009232:02 Request CBC W/AUTO DIFF WBC (29026)Indication: Jaundice On: 14-Ulg-560549:02 Request Planned Encounters Medical; 3 Week FU - On: 28-Jun-2018 8:30 [facility] Abida Saleem DO, DO, Kathleen Planned Procedures CT - Abdomen & Pelvis (IV Contrast On: 23-May-2018 Intent Needed)By: Abida Saleem DO, DO, Kathleen CT - Chest with PE ProtocolBy: On: 23-May-2018 Intent Abida Saleem DO, DO, Kathleen ELECTROCARDIOGRAM, COMPLETE (ECG) On: 23-May-2018 Intent (38401)By: Abida Saleem DO Comments: sinus tachy no acute chg/ poor R wave progression Abida Saleem DO Spirometry (16583)By: [facility], On: 23-May-2018 Intent Abida Winters [...] Non-smoker : Patient Instructions Indication: Non-smoker Encounters Lab Order On: 08-Jun-2018 16:13 Encounter Diagnosis: [...]
--- OUTSIDE RECORDS SUMMARY | 2018-08-19 18:47 | XMS RPT_ITS | Continuity of Care Document ---
:1950 Author Organization [facility] Address [address] [facility] [address] [place] [address] Phone Care Team Providers Name Role Phone Abida Saleem DO Unavailable Enrique Herman Unavailable Gravius, Cynthia Unavailable Unavailable XAVI Fitch Unavailable Unavailable Messenger, IN CLASSROOM TUTOR Tiffany Unavailable Unavailable Unavailable Unavailable Problems Name [...] WITH Contrast Result: Comments: See Note; NOTES: [facility] Imaging Services [address] [place] [address] Abdomen/Pelvis WITH Contrast MR#: [id number] Acct: [id number] Name: ATIF LORENZO Rep #: [id number] : 1950 F 68 From: Jaden Rios MD PCP: Abida Saleem DO Status: REG CLI Study: Abdomen/Pelvis WITH Contrast Date of Exam: 05/23/18 Exam# [id number] Ordering Dr: Aletha Saleem DO STUDY: CT [...] Jaden Rios MD at 15:10 EDT Tel [phone], Service support , CC: Abida Saleem DO Door To Door Selling Agent: Signed 23-May-2018 CTA Chest W/WO Contrast Result: Comments: See Note; NOTES: [facility] Imaging Services [address] [place] [address] CTA Chest W/WO Contrast MR#: [id number] Acct: [id number] Name: ATIF LORENZO Rep #: [id number] : 1950 F 68 From: Jaden Rios MD PCP: Abida Saleem DO Status: REG CLI Study: CTA Chest W/WO Contrast Date of Exam: 05/23/18 Exam# [id number] Ordering Dr: Abida Saleem DO STUDY: CTA [...] Jaden Rios MD at 15:12 EDT Tel [phone], Service support , CC: Abida Saleem DO Door To Door Selling Agent: Signed Family History Unknown Family Member Name [...] kg/m2 Body Surface Area Calculated 1.9 m2 88-Rek-400077:10 Pulse 114 /min Comments: Pattern: Regular Respiration [...] Results Date Description Value Details :03 SPEP (27095) Comments: PATIENT NOT FASTINGPERFORMED BY: CB [facility] Bpghnb6866 [facility] [id number] BY: BN [facility] [address] [id number] PDF . (Normal) Please note: SPRCS (Normal) Comments: Protein electrophoresis scan will follow via computer, mail, orcourier delivery. A/G Ratio 1.0 (Normal) Range: 0.7-1.7 Globulin, Total 3.5 g/dL (Normal) Range: 2.2-3.9 M-Brian Not Observed g/dL (Normal) Gamma Globulin 0.9 g/dL (Normal) Range: 0.4-1.8 Beta Globulin 1.3 g/dL (Normal) Range: 0.7-1.3 Wpnmn-3-Odpcqekx 0.9 g/dL (Normal) Range: 0.4-1.0 Ocdfy-7-Pmojsrhd 0.3 g/dL (Normal) Range: 0.0-0.4 Albumin 3.6 g/dL (Normal) Range: 2.9-4.4 Protein, Total 7.1 g/dL (Normal) Range: 6.0-8.5 2-Lik-764224:03 UPEP (51859) Comments: PATIENT NOT FASTINGPERFORMED BY: National Payment NetworkCrownpoint Health Care FacilityXpoofa7916 [facility] [id number] BY: [address] [id number] PDF . (Normal) Please note: SPRCS (Normal) Comments: Protein electrophoresis scan will follow via computer, mail, orcourier delivery. M-Brian, % Not Observed % (Normal) Gamma Globulin, U 15.5 % (Normal) Beta Globulin, U 24.0 % (Normal) Buwzq-9-Ravruthb, U 14.0 % (Normal) Xtpuu-1-Zxjectap, U 15.0 % (Normal) Albumin, U 31.5 % (Normal) Protein,Total,Urine <4.0 mg/dL (Normal) Comments: Verified by repeat analysis 3-Fey-828271:03 NATA TEST, DIRECT Comments: PATIENT NOT FASTINGPERFORMED BY: [employer] [id number] BY: [address] [id number] (78353) Nata', Direct Negative (Normal) 8-Mbh-292341:03 Methymalonic Acid, Serum Comments: PATIENT NOT FASTINGPERFORMED BY: National Payment NetworkAshlee [place] [id number] [facility] [id number] BY: [address] [id number] (73410) Disclaimer: SPRCS (Normal) Comments: This test was developed and its performance characteristicsdetermined by [employer]. It has not been cleared or approvedby the Food and Drug Administration. Methylmalonic Acid, Serum 275 nmol/L (Normal) Range: 0-378 5-Pfq-986771:03 VITAMIN B-12 (CYANOCOBALAMIN) Comments: PATIENT NOT FASTINGPERFORMED BY: mySupermarketAshlee [place] [id number] [facility] [id number] BY: [address] [id number] (08822) Vitamin B12 1703 pg/mL (Abnormal) Range: 232-1245 8-Yuo-812757:03 RETICULOCYTE COUNT MANUL Comments: PATIENT NOT FASTINGPERFORMED BY: mySupermarketRiverview Medical CenterZeivam[address] [place] [address] [id number] BY: [address] [id number] (84363) Reticulocyte Count 0.6 % (Normal) Range: 0.6-2.6 6-Wbt-637100:03 LDH (LD) (LACTATE Comments: PATIENT NOT FASTINGPERFORMED BY: [employer] [id number] BY: [address] [id number] DEHYDROGENASE) (24769) LDH 254 [iU]/L (Abnormal) Range: 119-226 5-Qpg-195540:03 IRON BINDING CAPACITY Comments: PATIENT NOT FASTINGPERFORMED BY: mySupermarketAsh[place] [id number] [facility] [id number] BY: [address] [id number] (TIBC) (54853) Iron Saturation 20 % (Normal) Range: 15-55 Iron 101 ug/dL (Normal) Range: 27-139 UIBC 397 ug/dL (Abnormal) Range: 118-369 Iron Bind.Cap.(TIBC) 498 ug/dL (Abnormal) Range: 250-450 8-Uol-420863:03 FERRITIN (02720) Comments: PATIENT NOT FASTINGPERFORMED BY: LabBarbara [place] [address] [facility] [id number] BY: [employer] [id number] Ferritin, Serum 80 ng/mL (Normal) Range: 15-150 2-Xbt-878726:03 CBC W/AUTO DIFF WBC Comments: PATIENT NOT FASTINGPERFORMED BY: mySupermarketRiverview Medical CenterIldygc7355 [facility] [id number] BY: [employer] [id number] (01051) Hematology Comments: Note: (Normal) Comments: Verified by [...] 3.4-10.8 30-May-20189:02 Basic Metabolic Profile (BMP) Comments: [facility] [address] [place], [place], [id number] GAP 10 (Normal) Range: 5-15 CO2 26.0 [...] Comments: Please note revised GLUCOSE reference range qjmjvpuvk61/02/2018. 14-Gxd-691937:08 CBC W/Diff, Automated Comments: [facility] [address] [place], [place], [address] PATH REV Reviewed (Normal) Comments: Severe Microcytic [...] TO TIERA SEQUEIRA [facility] INTERNAL DTDIIYVD59/30/18 1317 Mariella Garner.RESULTS READ BACK BY SAME. RBC 2.50 {M/mm3} (Abnormal) Range: 4.2-5.4 WBC 6.4 K/mm3 (Normal) Range: 4.4-11.0 94-Vat-374360:08 Comprehensive Metabolic Profil Comments: [facility] [address] [place], [address] GAP 10 (Normal) Range: 5-15 CO2 25.0 [...] Comments: Please note revised GLUCOSE reference range egybsdksv30/02/2018. 51-Riz-176685:08 Erythrocyte Sed Rate Comments: [facility] [address] [place], [address] SED RATE 7 mm/h (Normal) Range: 0-30 11-Bfg-087208:08 C-REACTIVE PROTEIN (85234) Comments: [facility] [address] [place], [address] C-REACTIVE PROT 7.09 mg/L (Abnormal) Range: 0.0-3.0 Comments: C-Reactive Protein (CRP) provides useful information for thediagnosis, therapy and monitoring of inflammatory processesand associated diseases. For the evaluation of Relative Riskfor Cardiovascular Dise ase, a High Sensitivity CRP (HSCRP)should be ordered. 76-Yjk-567571:08 LIPASE (47290) Comments: [facility] [address] [place], [address] LIPASE 115 U/L (Normal) Range: 73-393 21-Znw-768634:08 AMYLASE (86577) Comments: [facility] [address] [place], [address] AGUSTIN 50 U/L (Normal) Range: 25-115 Plan [...] anemias Other specified anemias : Reviewed Rn Otolaryngology Letter Indication: Other specified anemias BMI 40.0-44.9, adult : Eprescribed prescriptions (G8553) Indication: BMI 40.0-44.9, adult Planned Observations CBC WITH MANUAL DIFF (15542)Indication: Other specified anemias On: 58-Hzl-102554:13 Request IRON (80800)Indication: Other specified anemias On: 5-Oqi-278926:22 Request SED RATE ERYTHROCYTE (23563)Indication: Jaundice On: 16-Tfa-310745:04 Request METABOLIC PANEL, COMPREHENSIVE (77827)Indication: Jaundice On: 92-Rvz-060787:02 Request CBC W/AUTO DIFF WBC (25604)Indication: Jaundice On: 07-Dtr-673463:02 Request Planned Encounters Medical; 3 Week FU - On: 28-Jun-2018 8:30 [facility] Abida Saleem DO, DO, Kathleen Planned Procedures CT - Abdomen & Pelvis (IV Contrast On: 23-May-2018 Intent Needed)By: Abida Saleem DO, DO, Kathleen CT - Chest with PE ProtocolBy: On: 23-May-2018 Intent Abida Saleem DO, DO, Kathleen ELECTROCARDIOGRAM, COMPLETE (ECG) On: 23-May-2018 Intent (74893)By: Abida Saleem DO Comments: sinus tachy no acute chg/ poor R wave progression Abida Saleem DO Spirometry (74240)By: [facility], On: 23-May-2018 Intent Abida Winters [...]
--- OUTSIDE RECORDS SUMMARY | 2018-08-19 18:47 | XMS RPT_ITS | Continuity of Care Document ---
:1950 Author Organization [facility] Address [address] [place] [address] Phone Care Team Providers Name Role Phone Abida Saleem DO Unavailable CarissaEnrique brown Unavailable FRANCY Dumont Unavailable Unavailable Gravius, Cynthia Unavailable Unavailable Unavailable Unavailable Problems Name Dates Details Bilateral pleural effusion (J90, 511.9) Comments: if reaccumulate can do cxr to eval and restart but kidney fcn popping up so sdtop lasix for now Status: Active BMI 40.0-44.9, adult (Z68.41, V85.41) Status: Active BMI 40.0-44.9, adult (Z68.41, V85.41) Status: Active Cough (R05, 786.2) Comments: will chg lisinopril first Status: Active Deliveries (Parity) Comments: 4. Status: Active Diverticulitis (K57.92, 562.11) Comments: asx Status: Active Esophagitis determined by endoscopy (K20.9, 530.10) Comments: Dr White- 06/11 - gastric ulcer no evidence of current bleeding and severe esophagitis- biopsy were neg for pathology -- on ppi for 3mo Status: Active Gallstones (K80.20, 574.20) Comments: asx Status: Active Gastric ulcer without hemorrhage or perforation, unspecified chronicity (K25.9, 531.90) Status: Active Hiatal hernia (K44.9, 553.3) Status: Active HTN (hypertension), benign (I10, 401.1) Status: Active Medication side effect, initial encounter (T50.905A, E947.9) Status: Active Non-smoker (Z78.9, V49.89) Status: Active Other specified anemias (D64.89, 285.8) Comments: cont iron--- hgb at discharge 9.5-- set up to do outpt egd/colonsocopy -- if noraml refer to hematology Status: Active Pregnancies () Comments: 4. Status: Active Pulmonary hypertension (I27.20, 416.8) Status: Active Splenic cyst (D73.4, 289.59) Status: Active Medications Name Dates Details Cozaar 25 MG Oral Tablet 1 (one) Tablet qd for 0 days Quantity: 30 {Tablet} Refills: 1 Ordered:28-Jun-2018 Sarai Saleem DO, DO, Kathleen Start : 28-Jun-2018 Active Glucosamine Chondroitin Complx Oral Capsule 1 qd Active Iron 65 MG Oral Tablet 1 daily (65 MG) Active Omeprazole 40 MG Oral Capsule Delayed Release 1 (one) Capsule qd for 90 days Quantity: 90 {Capsule} Refills: 0 Ordered:28-Jun-2018 Sarai Saleem DO, DO, Kathleen Start : 28-Jun-2018 Active Ultra Womens Pack Miscellaneous 1 qd Active Vitamin B Complex Oral Tablet 1 qd Active Aleve 220 MG Oral Capsule 1 qhs (220 MG) Inactive Aspirin 81 MG Oral Tablet 1 qd (81 MG) Inactive Lisinopril 5 MG Oral Tablet 1 Tablet daily for 90 days Quantity: 90 {Tablet} Refills: 3 Ordered:28-Jun-2018 Sarai Saleem DO, DO, Kathleen Start : 28-Jun-2018 End : 28-Jun-2018 Discontinued Comments:cough Allergies and Adverse Reactions Name Dates Details [...] WITH Contrast Result: Comments: See Note; NOTES: [facility] Imaging Services [address] [place] [address] Abdomen/Pelvis WITH Contrast MR#: [id number] Acct: [id number] Name: ATIF LORENZO Rep #: [id number] : 1950 F 68 From: Jaden Rios MD PCP: Abida Saleem DO Status: REG CLI Study: Abdomen/Pelvis WITH Contrast Date of Exam: 05/23/18 Exam# [id number] Ordering Dr: Aletha Saleem DO STUDY: CT [...] Jaden Rios MD at 15:10 EDT Tel [phone], Service support , CC: Abida Saleem DO Practice Management Consultant: Signed 23-May-2018 CTA Chest W/WO Contrast Result: Comments: See Note; NOTES: [facility] Imaging Services [address] [place] [address] CTA Chest W/WO Contrast MR#: [id number] Acct: [id number] Name: ATIF LORENZO Rep #: : 1950 F 68 From: Jaden Rios MD PCP: Abida Saleem DO Status: REG CLI Study: CTA Chest W/WO Contrast Date of Exam: 05/23/18 Exam# [id number] Ordering Dr: Abida Saleem DO STUDY: CTA [...] Jaden Rios MD at 15:12 EDT Tel [phone], Service support , CC: Abida Saleem DO Practice Management Consultant: Signed Family History Unknown Family Member Name [...] 1.94 m2 Results Date Description Value Details :35 Liver Profile Comments: [facility] [address] [place], [address] D BILI 0.13 mg/dL (Normal) Range: 0.00-0.30 T BILI 0.30 mg/dL (Normal) Range: 0.20-1.00 ALT 36 U/L (Normal) Range: 13-56 ALK P 66 U/L (Normal) Range: 45-117 AST 29 U/L (Normal) Range: 15-37 GLOB 3.4 g/dL (Normal) Range: 2.2-4.2 ALB 3.6 g/dL (Normal) Range: 3.2-5.0 T PROT 7.0 g/dL (Normal) Range: 6.4-8.2 :39 CBC WITH MANUAL DIFF (62607) Comments: PATIENT NOT FASTINGPERFORMED BY: [facility] Dmvogq3329 [facility] [id number] Hematology Comments: Note: (Normal) Comments: Manual differential [...] present. WBC 4.9 {x10E3/uL} (Normal) Range: 3.4-10.8 9-Tku-150343:03 [facility] (16727) Comments: PATIENT NOT FASTINGPERFORMED BY: [facility] Rdqjjd1471 [facility] [id number] BY: BN [facility] [address] [id number] PDF . (Normal) Please note: SPRCS (Normal) Comments: Protein electrophoresis scan will follow via computer, mail, orcourier delivery. A/G Ratio 1.0 (Normal) Range: 0.7-1.7 Globulin, Total 3.5 g/dL (Normal) Range: 2.2-3.9 M-Brian Not Observed g/dL (Normal) Gamma Globulin 0.9 g/dL (Normal) Range: 0.4-1.8 Beta Globulin 1.3 g/dL (Normal) Range: 0.7-1.3 Azukl-5-Mjtsijdj 0.9 g/dL (Normal) Range: 0.4-1.0 Smjrr-0-Flwzmhnj 0.3 g/dL (Normal) Range: 0.0-0.4 Albumin 3.6 g/dL (Normal) Range: 2.9-4.4 Protein, Total 7.1 g/dL (Normal) Range: 6.0-8.5 1-Axr-560139:03 [facility] (61339) Comments: PATIENT NOT FASTINGPERFORMED BY: [address] [id number] BY: [address] [id number] PDF . (Normal) Please note: [facility] (Normal) Comments: Protein electrophoresis scan will follow via computer, mail, orcourier delivery. M-Brian, % Not Observed % (Normal) Gamma Globulin, U 15.5 % (Normal) Beta Globulin, U 24.0 % (Normal) Flwok-5-Qfeoogyy, U 14.0 % (Normal) Ihvrq-0-Gfeuutbp, U 15.0 % (Normal) Albumin, U 31.5 % (Normal) Protein,Total,Urine <4.0 mg/dL (Normal) Comments: Verified by repeat analysis 3-Pgo-554061:03 NATA TEST, DIRECT Comments: PATIENT NOT FASTINGPERFORMED BY: [place] [id number] [facility] [id number] BY: [address] [id number] ([address]85) Nata', Direct Negative (Normal) 5-Vbx-834623:03 Methymalonic Acid, Serum Comments: PATIENT NOT FASTINGPERFORMED BY: [address] [id number] BY: [address] [id number] (24369) Disclaimer: SPR (Normal) Comments: This test was developed and its performance characteristicsdetermined by [employer]. It has not been cleared or approvedby the Food and Drug Administration. Methylmalonic Acid, Serum 275 nmol/L (Normal) Range: 0-378 7-Khs-647631:03 VITAMIN B-12 (CYANOCOBALAMIN) Comments: PATIENT NOT FASTINGPERFORMED BY: [facility]xpIn[facility] Mullica HillQqmflo1167 [facility] [id number] BY: [address] [id number] ([address]252) Vitamin B12 1703 pg/mL (Abnormal) Range: 232-1245 1-Rdu-092366:03 RETICULOCYTE COUNT [facility] Comments: PATIENT NOT FASTINGPERFORMED BY: [facility] Lvwmku9056 [facility] [id number] BY: [facility] [id number] ([address]3359) Reticulocyte Count 0.6 % (Normal) Range: 0.6-2.6 7-Umr-661879:03 LDH (LD) (LACTATE Comments: PATIENT NOT FASTINGPERFORMED BY: [facility] Vmtvic1368 [facility] [id number] BY: [employer] [id number] DEHYDROGENASE) (42621) LDH 254 [iU]/L (Abnormal) Range: 119-226 7-Zka-885099:03 IRON BINDING CAPACITY Comments: PATIENT NOT FASTINGPERFORMED BY: [facility] Rpzmiv6362 [facility] [id number] BY: [address] [id number] (TIBC) (11535) Iron Saturation 20 % (Normal) Range: 15-55 Iron 101 ug/dL (Normal) Range: 27-139 UIBC 397 ug/dL (Abnormal) Range: 118-369 Iron Bind.Cap.(TIBC) 498 ug/dL (Abnormal) Range: 250-450 3-Rpv-450284:03 [facility] (66713) Comments: PATIENT NOT FASTINGPERFORMED BY: [facility] Emlxir8299 Hickman RoadAtrium Health Harrisburgin [place] [id number] BY: LabCoJennifer [place] [address] [facility] [id number] Ferritin, Serum 80 ng/mL (Normal) Range: 15-150 2-Uaj-769358:03 CBC W/AUTO DIFF WBC Comments: PATIENT NOT FASTINGPERFORMED BY: [facility]CoInsp[facility] Mullica HillNkxoys5906 Marylou Rainey [place] [id number] BY: [facility] [id number] ([address]68) Hematology Comments: Note: (Normal) Comments: Verified by [...] 3.4-10.8 30-May-20189:02 Basic Metabolic Profile (BMP) Comments: [facility] [address] [place], [place], [id number] GAP 10 (Normal) Range: 5-15 CO2 26.0 [...] Comments: Please note revised GLUCOSE reference range zbkpyywrz17/02/2018. 70-Iqa-848673:08 CBC W/Diff, Automated Comments: [facility] [address] [place], [place], [address] PATH REV Reviewed (Normal) Comments: Severe Microcytic [...] CRITICAL VALUE VERIFIED. CALLED TO TIERA SEQUEIRA [facility] INTERNAL LFFAVUWI45/30/18 1317 Mariella Garner.RESULTS READ BACK BY SAME. RBC 2.50 {M/mm3} (Abnormal) Range: 4.2-5.4 WBC 6.4 K/mm3 (Normal) Range: 4.4-11.0 33-Ltp-423088:08 [facility] Metabolic Profil Comments: [facility] [address] [place], [address] GAP 10 (Normal) Range: 5-15 CO2 25.0 [...] Comments: Please note revised GLUCOSE reference range oavmdxgtz14/02/2018. 53-Bqs-787215:08 Erythrocyte Sed Rate Comments: [facility] [address] [place], [place], [address] SED RATE 7 mm/h (Normal) Range: 0-30 63-Qsn-486581:08 C-REACTIVE PROTEIN (71754) Comments: [facility] [address] [place], [place], [address](649) C-REACTIVE PROT 7.09 mg/L (Abnormal) Range: 0.0-3.0 Comments: C-Reactive Protein (CRP) provides useful information for thediagnosis, therapy and monitoring of inflammatory processesand associated diseases. For the evaluation of Relative Riskfor Cardiovascular Dise ase, a High Sensitivity CRP (HSCRP)should be ordered. 86-Mvo-250087:08 LIPASE (09114) Comments: [facility] [address] [place], [address] LIPASE 115 U/L (Normal) Range: 73-393 22-Ztt-815175:08 AMYLASE (55001) Comments: [facility] [address] [place], [address] AGUSTIN 50 U/L (Normal) Range: 25-115 Plan of Care Name Dates Details Instructions Other specified anemias : Reviewed Lab Indication: Other specified anemias Other specified anemias : Reviewed Diagnostic Tests Indication: Other specified anemias Pulmonary hypertension : Reviewed Internet Specialist Letter Indication: Pulmonary hypertension Other specified anemias : Reviewed Lab Indication: Other specified anemias HTN (hypertension), benign : Follow up in 4 weeks Indication: HTN (hypertension), benign HTN (hypertension), benign : BP MONITORING - SELF Indication: HTN (hypertension), benign Pulmonary hypertension : Reviewed Diagnostic Tests Indication: [...] specified anemias Other specified anemias : Reviewed Internet Specialist Letter Indication: Other specified anemias BMI 40.0-44.9, adult : Eprescribed prescriptions (G8553) Indication: BMI 40.0-44.9, adult Planned Observations HCT (HEMATOCRIT) (89761)Indication: Other specified anemias On: 27-Aug-2018 Request HGB (HEMOGLOBIN) (21159)Indication: Other specified anemias On: 27-Aug-2018 Request HCT (HEMATOCRIT) (31229)Indication: Other specified anemias On: 28-Jul-2018 Request HGB (HEMOGLOBIN) (37799)Indication: Other specified anemias On: 28-Jul-2018 Request HCT (HEMATOCRIT) (41040)Indication: Other specified anemias On: 28-Jun-20189:29 Request Comments: standing order for monthly for 4times HGB (HEMOGLOBIN) (24971)Indication: Other specified anemias On: 28-Jun-20189:28 Request Comments: standing order once monthly for 4months IRON (37062)Indication: Other specified anemias On: 3-Mdg-092468:22 Request SED RATE ERYTHROCYTE (09949)Indication: Jaundice On: 71-Zxv-974555:04 Request METABOLIC PANEL, COMPREHENSIVE (47376)Indication: Jaundice On: 36-Ief-629706:02 Request CBC W/AUTO DIFF WBC (88869)Indication: Jaundice On: 59-Gtr-454819:02 Request Planned Encounters Medical; 1 Month FU - On: 31-Jul-2018 10:30 [facility] Abida Saleem DO, DO, Kathleen Planned Procedures CT - Abdomen & Pelvis (IV Contrast On: 23-May-2018 Intent Needed)By: Abida Saleem DO, DO, Kathleen CT - Chest with PE ProtocolBy: On: 23-May-2018 Intent Abida Saleem DO, DO, Kathleen ELECTROCARDIOGRAM, COMPLETE (ECG) On: 23-May-2018 Intent (44980)By: Abida Saleem DO Comments: sinus tachy no acute chg/ poor R wave progression Abida Saleem DO Spirometry (47684)By: [facility] On: 23-May-2018 Intent Abida Winters DO Comments: noraml Instructions Name Dates Details Other specified anemias : Patient Instructions Indication: Other specified anemias BMI 40.0-44.9, adult : How to access [...] Instructions Indication: Non-smoker Encounters Office Visit On: 28-Jun-2018 8:31 Encounter Reason: Follow up tests - Date: (06/26/18 labs).Encounter Diagnosis: BMI 40.0-44.9, adult, Non-smoker, HTN (hypertension), benign, Cough, Medication side effect, initial encounter, Esophagitis determined by endoscopy, End: 28-Jun-2018 9:35 Gastric ulcer without hemorrhage or perforation, unspecified chronicity, Other specified anemias, Pulmonary hypertension [facility] Lab Order On: 08-Jun-2018 [...]
--- OUTSIDE RECORDS SUMMARY | 2018-08-19 18:47 | XMS RPT_ITS ---
:1950 Author Organization OHIP Support Name Relationship Address Phone JAMIR HIGUERA NaturalDaughter Unavailable + R Unknown Unavailable Unavailable YECENIA MALONEY [address] + [place] [address] MELASHOK, JAMIR NaturalDaughter Unavailable + R Unknown Unavailable Unavailable YECENIA MALONEY [address] + [place] [address] DAVIDA, JAMIR NaturalDaughter Unavailable + R Unknown Unavailable Unavailable YECENIA MALONEY [address] + [place] [address] MELUCH, JAMIR NaturalDaughter Unavailable + R Unknown Unavailable Unavailable YECENIA MALONEY [address] + [place] [address] MELASHOK, JAMIR NaturalDaughter Unavailable + R Unknown Unavailable Unavailable YECENIA MALONEY [address] + [place] [address] MELASHOK, JAMIR NaturalDaughter Unavailable + R Unknown Unavailable Unavailable YECENIA MALONEY [address] + [place] [address] MELASHOK, JAMIR NaturalDaughter Unavailable + R Unknown Unavailable Unavailable YECENIA MALONEY [address] + [place] [address] MELASHOK, JAMIR NaturalDaughter Unavailable + R Unknown Unavailable Unavailable YECENIA MALONEY [address] + [place] [address] Care Team Providers Name Role Phone Abida Saleem DO Attending Unavailable Abida Saleem DO Referring Unavailable Abida Saleem DO Consulting Unavailable ALEXANDR NGO Attending Unavailable ALEXANDR NGO Admitting Unavailable ALEXANDR NGO Attending Unavailable ALEXANDR NGO T Referring Unavailable HUBER, ALEXANDR T Attending Unavailable Harper, Abida Attending Unavailable Harper, Abida Referring Unavailable Harper, Abida Primary Care Unavailable Harper, Abida Primary Care Unavailable KoMartin molina F Admitting Unavailable Paintsil, Sheffield Attending Unavailable Martin Tan F Admitting Unavailable Harper, Abida Primary Care Unavailable JoetsoniMartin roberson F Consulting Unavailable KotsonisMartin F Attending Unavailable KotsonisMartin F Admitting Unavailable Harper, Abida Primary Care Unavailable Paintsil, Sheffield Consulting Unavailable Paintsil, Sheffield Attending Unavailable Martin Tan F Admitting Unavailable Paintsil, Sheffield Attending Unavailable Harper, Abida Primary Care Unavailable Paintsil, Sheffield Consulting Unavailable Paintsil, Sheffield Attending Unavailable Paintsil, Sheffield Referring Unavailable Harper, Abida Primary Care Unavailable Demetrius Palm Attending Unavailable Martin Tan F Referring Unavailable Sibilia, Enrique Attending Unavailable Sibilia, Enrique Referring Unavailable Harper, Abida Primary Care Unavailable Purpose Purpose PROBLEMS PROBLEMS DATE TYPE CONDITION / CODE ATTENDING STATUS SOURCE 06/13/2018 Active Anemia, HUBER, Active [facility] unspecified / ALEXANDR [facility] D64.9(ICD-10) Repository 06/21/2018 Unknown R17 - Unspecified Harper, Active [place] jaundice / [facility] R17(ICD-10) Hospital Repository PROCEDURES PROCEDURES No Procedure Records FoundVITAL SIGNS VITAL SIGNS No Vital Signs Records FoundRESULTS RESULTS LIVER PROFILE Collected: 06/26/2018 Status: F Source: [place] 12:35 PM [facility] REPOSITORY TYPE CODE TESTS RESULT OUT OF RANGE REFERENCE UNITS LAB L501.1500 6.4-8.2 g/dL Normal T PROT 7.0 LAB L501.1800 3.2-5.0 g/dL Normal ALB 3.6 LAB L501.1950 2.2-4.2 g/dL Normal GLOB 3.4 LAB L501.4100 15-37 U/L Normal AST 29 LAB L501.4305 45-117 U/L Normal ALK P 66 LAB L501.4405 13-56 U/L Normal ALT 36 LAB L501.4600 0.20-1.00 mg/dL Normal T BILI 0.30 LAB L501.4700 0.00-0.30 mg/dL Normal D BILI 0.13 Performed By: #### L500.3400 #### [facility] [address] [place], [address] PROGRESS Observed: 06/22/2018 Status: COMPLETED Source: [place] 7:30 PM [facility] REPOSITORY HNO ID: [id number] Author: Alexandr Ngo Service: (none) Author Type: Physician Type: Progress Notes Filed: 06/22/2018 7:38 PM Note Text: FOLLOW UP VISIT - ENDOSCOPY NAME: Atif Roberson [facility] NO.: [id number] DATE OF SERVICE: 06/22/2018 : 1950 REFERRING PHYSICIAN: Atif is a patient I am following for iron deficiency anemia. The patient is a 68 year old female referred for endoscopy. Atif notes no history of colon complaints. The patient notes no history of upper GI complaints. He specifically denies blood per rectum or melena. The patient noted worsening fatigue and shortness of breath with exercise. She notes she is normally quite active. Atif has not undergone prior endoscopy. She presented to [facility] with shortness of breath. She was found to have a hemoglobin of admission of 4.5. There was a clinical suggestion of congestive heart failure but after transfusion and then diuresis she underwent echocardiogram that demonstrated no abnormalities and felt that this was really from acute anemia and not truly congestive heart failure. She is referred for endoscopy. Due to severe anemia of unknown etiology. Patient artery been placed on a proton pump inhibitor while in the hospital I performed upper and lower endoscopy on June 13, 2018. The patient was found to have erythematous duodenum both he and was felt to be a distortion in the prepyloric region likely related to a healing ulcer. There also appeared to be a tongue of tissue in the distal esophagus felt to appear consistent with Stewart's esophagitis. Colonoscopy demonstrated diverticulosis without other abnormalities. Pathology demonstrated: FINAL DIAGNOSIS 1. Stomach, antrum, biopsy - Mild chronic inactive gastritis with reactive epithelial changes (see comment). 2. Stomach, ulcer, margins, biopsy - Chronic active gastritis with reactive epithelial changes. - No evidence of dysplasia or carcinoma. 3. Esophagus, distal, biopsy - Esophageal squamous mucosa with no diagnostic alteration. - No evidence of eosinophilic esophagitis. /ee 06/16/2018 COMMENT 1. H. pylori immunostain has been ordered and the results will be reported separately as an addendum. Perry Cedillo M.D. (Electronic Signature) SPECIMEN SUBMITTED A: ANTRUM, BIOPSY H/H B: ANTRUM ULCER MARGIN, BIOPSY C: DISTAL ESOPHAGUS, BIOPSY ADDENDUM ? ? ?Date Ordered: ? ? 06/16/2018 ? ? Date Reported: 06/16/2018 ? ? ? Given the background of chronic gastritis a Helicobacter pylori immunostain was performed on block A1 and is negative for Helicobacter pylori organisms. The patient notes no complaints since the procedure. VITALS: There were no vitals taken for this visit. On examination, the abdomen is benign. Assessment IMPRESSION: Likely bleeding ulcer PLAN: If the patient notes any problems or changes in bowel function, the patient should contact me immediately. Otherwise I recommend follow up endoscopy in 2 years given the concern that I still thought this appeared to be consistent with Stewart's esophagitis. I discussed with you the findings of your colonoscopy. Since there were no worrisome abnormalities, I recommend you undergo repeat endoscopic screening every 10 years. This is the current recommendation for colon cancer screening. If you note bleeding, change in bowel habits, or other suspicious colon related symptoms before that time, those symptoms should be evaluated as necessary. Diagnoses: (D50.9) Iron deficiency anemia, unspecified iron deficiency anemia type (primary encounter diagnosis) Return to Clinic: The patient is instructed to follow- up with me as needed. Alexandr Ngo MD CNOV Observed: 06/22/2018 Status: COMPLETED Source: [place] 9:30 AM [facility] REPOSITORY Office Visit (GENSWS) HAIDERATIF Nadia ([id number]) 1950 F Date Time Provider Department 06/22/18 9:30 AM ALEXANDR NGO During your visit today, we recorded the following information about you: Alexandr Ngo MD 06/22/2018 10:18 AM Signed The following instructions are important for you related to your office visit today with the [facility]. INSTRUCTIONS FOLLOWING A NORMAL COLONOSCOPY 10YR I discussed with you the findings of your colonoscopy. Since there were no worrisome abnormalities, I recommend you undergo repeat endoscopic screening every 10 years. This is the current recommendation for colon cancer screening. If you note bleeding, change in bowel habits, or other suspicious colon related symptoms before that time, those symptoms should be evaluated as necessary., INSTRUCTIONS FOR PEPTIC ULCER DISEASE/GASTRITIS I discussed with you the findings of your upper endoscopy. Your upper endoscopy demonstrated signs of peptic ulcer disease or irritation. This can be seen as a range of issues from actual ulcers in the stomach or duodenum (first part of the small bowel) or irritation ranging from redness to more significant irritation with erosions of the stomach or duodenum. These conditions are usually caused from a combination of too much acid production or too little protective mucus production in the stomach. Factors that increase acid production include smoking and stress. If you smoke, stopping smoking will often cure these issues without needing other medications. Factors that decrease the stomach's production of protective mucus include alcohol consumption, smoking, aspirin and other anti-inflammatory use. Over the counter medications including antiacids and acid reducing medications including H2 blockers (Zantac and the like) and proton pump inhibitors (prilosec, prevacid and the like) neutralize or prevent acid production. Prescription strength proton pump inhibitors (PPIs) may be necessary if your symptoms persist. Carafate may be added to PPI treatment in refractory cases. Avoiding smoking, alcohol and antiinflammatory medications are important in the successful treatment of peptic diseases. New or worsening symptoms such are epigastric pain, burning, difficulty swallowing or food sticking should be relayed to your physician. Feeling full early after eating, or black, tarry, foul smelling stools are also worrisome. If you have any difficulties or concerns, you should contact our office immediately. INSTRUCTIONS FOR BARRETTS ESOPHAGITIS I discussed with you the findings of your upper endoscopy. Your upper endoscopy demonstrated Stewart's esophagitis Esophagitis may be a form of peptic irritation, with acid moving from the stomach to the esophagus (gastroesophageal reflux). Stewart's changes are microscopic findings that have the lining of the esophagus look like the stomach lining. This finding of gastric metaplasia has been shown to be associated with an increased risk of developing esophageal cancer in the future. This is particularly worrisome if atypical cells (dysplasia) are found at biopsy. Esophagitis is related to many factors - acid production, obesity, foods, smoking and alcohol. Factors that increase acid production include smoking and stress. If you smoke, stopping smoking will often cure these issues without needing other medications. Prescription strength proton pump inhibitors (PPIs) are necessary for treatment of Stewart's esophagitis. Treatment with PPI are usually continued indefinitely, even if your symptoms improve or if you never had GERD symptoms. Avoiding smoking, alcohol and antiinflammatory medications are important in the successful treatment of reflux esophagitis and peptic diseases. Other factors that contribute to GERD and esophagitis are being overweight, eating large meals before laying down and certain foods. Weight loss will help improve many GERD complaints. Remaining upright after eating large meals and having a small supper will also help symptoms. Avoiding food that contribute to reflux - chocolate, caffeine, cheddar cheese may also help. Follow up upper endoscopy should be performed regularly to assure healing of the esophagus and to make sure that worsening Stewart's esophagitis is treated appropriately. New or worsening symptoms such are epigastric pain, burning, difficulty swallowing or food sticking should be relayed to your physician. Feeling full early after eating, or black, tarry, foul smelling stools are also worrisome. If you have any difficulties or concerns, you should contact our office immediately. Follow up upper endoscopy in 2 years If you note any additional difficulties, questions, or concerns, you should contact our office immediately @ [phone] and ask to be transferred to the General Surgery department. Alexandr Ngo MD 06/22/2018 7:38 PM Signed FOLLOW UP VISIT - ENDOSCOPY NAME: Atif S [facility] NO.: [id number] DATE OF SERVICE: 06/22/2018 : 1950 REFERRING PHYSICIAN: Atif is a patient I am following for iron deficiency anemia. The patient is a 68 year old female referred for endoscopy. Atif notes no history of colon complaints. The patient notes no history of upper GI complaints. He specifically denies blood per rectum or melena. The patient noted worsening fatigue and shortness of breath with exercise. She notes she is normally quite active. Atif has not undergone prior endoscopy. She presented to [facility] with shortness of breath. She was found to have a hemoglobin of admission of 4.5. There was a clinical suggestion of congestive heart failure but after transfusion and then diuresis she underwent echocardiogram that demonstrated no abnormalities and felt that this was really from acute anemia and not truly congestive heart failure. She is referred for endoscopy. Due to severe anemia of unknown etiology. Patient artery been placed on a proton pump inhibitor while in the hospital I performed upper and lower endoscopy on June 13, 2018. The patient was found to have erythematous duodenum both he and was felt to be a distortion in the prepyloric region likely related to a healing ulcer. There also appeared to be a tongue of tissue in the distal esophagus felt to appear consistent with Stewart's esophagitis. Colonoscopy demonstrated diverticulosis without other abnormalities. Pathology demonstrated: FINAL DIAGNOSIS 1. Stomach, antrum, biopsy - Mild chronic inactive gastritis with reactive epithelial changes (see comment). 2. Stomach, ulcer, margins, biopsy - Chronic active gastritis with reactive epithelial changes. - No evidence of dysplasia or carcinoma. 3. Esophagus, distal, biopsy - Esophageal squamous mucosa with no diagnostic alteration. - No evidence of eosinophilic esophagitis. /[facility] 06/16/2018 COMMENT 1. H. pylori immunostain has been ordered and the results will be reported separately as an addendum. Perry Cedillo M.D. (Electronic Signature) SPECIMEN SUBMITTED A: ANTRUM, BIOPSY H/H B: ANTRUM ULCER MARGIN, BIOPSY C: DISTAL ESOPHAGUS, BIOPSY ADDENDUM ? ? ?Date Ordered: ? ? 06/16/2018 ? ? Date Reported: 06/16/2018 ? ? ? Given the background of chronic gastritis a Helicobacter pylori immunostain was performed on block A1 and is negative for Helicobacter pylori organisms. The patient notes no complaints since the procedure. VITALS: There were no vitals taken for this visit. On examination, the abdomen is benign. Assessment IMPRESSION: Likely bleeding ulcer PLAN: If the patient notes any problems or changes in bowel function, the patient should contact me immediately. Otherwise I recommend follow up endoscopy in 2 years given the concern that I still thought this appeared to be consistent with Stewart's esophagitis. I discussed with you the findings of your colonoscopy. Since there were no worrisome abnormalities, I recommend you undergo repeat endoscopic screening every 10 years. This is the current recommendation for colon cancer screening. If you note bleeding, change in bowel habits, or other suspicious colon related symptoms before that time, those symptoms should be evaluated as necessary. Diagnoses: (D50.9) Iron deficiency anemia, unspecified iron deficiency anemia type (primary encounter diagnosis) Return to Clinic: The patient is instructed to follow- up with me as needed. Alexandr Ngo MD Referring Provider: SELF [200] Allergies As of Date: 06/22/2018 (No Known Allergies) Date Reviewed: 06/22/2018 Reviewed by: Alexandr Ngo - Fully Assessed Reason for Visit: Post Op [174] Primary Visit Diagnosis:Iron deficiency anemia, unspecified iron deficiency anemia type [D50.9] Prescriptions as of 06/22/2018 Sig: OMEPRAZOLE 40 MG CAPSULE,DARRICK* Take 40 mg by mouth once memo* LISINOPRIL 5 MG TABLET Take 5 mg by mouth once daily. NAPROXEN SODIUM 220 MG CAPSULE Take 220 mg by mouth once roderick* DAILY VITAMIN TABLET Take one(1) tablet daily. B COMPLEX 1 TABLET Take one(1) tablet daily. GLUCOSAMINE CHONDROITIN MAXIM* Take one daily.. Problem List As Of Date: 06/22/2018 (None) Other instructions from your clinician: The following instructions are important for you related to your office visit today with the [facility]. INSTRUCTIONS FOLLOWING A NORMAL COLONOSCOPY 10YR I discussed with you the findings of your colonoscopy. Since there were no worrisome abnormalities, I recommend you undergo repeat endoscopic screening every 10 years. This is the current recommendation for colon cancer screening. If you note bleeding, change in bowel habits, or other suspicious colon related symptoms before that time, those symptoms should be evaluated as necessary., INSTRUCTIONS FOR PEPTIC ULCER DISEASE/GASTRITIS I discussed with you the findings of your upper endoscopy. Your upper endoscopy demonstrated signs of peptic ulcer disease or irritation. This can be seen as a range of issues from actual ulcers in the stomach or duodenum (first part of the small bowel) or irritation ranging from redness to more significant irritation with erosions of the stomach or duodenum. These conditions are usually caused from a combination of too much acid production or too little protective mucus production in the stomach. Factors that increase acid production include smoking and stress. If you smoke, stopping smoking will often cure these issues without needing other medications. Factors that decrease the stomach's production of protective mucus include alcohol consumption, smoking, aspirin and other anti-inflammatory use. Over the counter medications including antiacids and acid reducing medications including H2 blockers (Zantac and the like) and proton pump inhibitors (prilosec, prevacid and the like) neutralize or prevent acid production. Prescription strength proton pump inhibitors (PPIs) may be necessary if your symptoms persist. Carafate may be added to PPI treatment in refractory cases. Avoiding smoking, alcohol and antiinflammatory medications are important in the successful treatment of peptic diseases. New or worsening symptoms such are epigastric pain, burning, difficulty swallowing or food sticking should be relayed to your physician. Feeling full early after eating, or black, tarry, foul smelling stools are also worrisome. If you have any difficulties or concerns, you should contact our office immediately. INSTRUCTIONS FOR BARRETTS ESOPHAGITIS I discussed with you the findings of your upper endoscopy. Your upper endoscopy demonstrated Stewart's esophagitis Esophagitis may be a form of peptic irritation, with acid moving from the stomach to the esophagus (gastroesophageal reflux). Stewart's changes are microscopic findings that have the lining of the esophagus look like the stomach lining. This finding of gastric metaplasia has been shown to be associated with an increased risk of developing esophageal cancer in the future. This is particularly worrisome if atypical cells (dysplasia) are found at biopsy. Esophagitis is related to many factors - acid production, obesity, foods, smoking and alcohol. Factors that increase acid production include smoking and stress. If you smoke, stopping smoking will often cure these issues without needing other medications. Prescription strength proton pump inhibitors (PPIs) are necessary for treatment of Stewart's esophagitis. Treatment with PPI are usually continued indefinitely, even if your symptoms improve or if you never had GERD symptoms. Avoiding smoking, alcohol and antiinflammatory medications are important in the successful treatment of reflux esophagitis and peptic diseases. Other factors that contribute to GERD and esophagitis are being overweight, eating large meals before laying down and certain foods. Weight loss will help improve many GERD complaints. Remaining upright after eating large meals and having a small supper will also help symptoms. Avoiding food that contribute to reflux - chocolate, caffeine, cheddar cheese may also help. Follow up upper endoscopy should be performed regularly to assure healing of the esophagus and to make sure that worsening Stewart's esophagitis is treated appropriately. New or worsening symptoms such are epigastric pain, burning, difficulty swallowing or food sticking should be relayed to your physician. Feeling full early after eating, or black, tarry, foul smelling stools are also worrisome. If you have any difficulties or concerns, you should contact our office immediately. Follow up upper endoscopy in 2 years If you note any additional difficulties, questions, or concerns, you should contact our office immediately @ [phone] and ask to be transferred to the General Surgery department. Encounter Status:Closed by ALEXANDR NGO MD on 06/22/18 NURSING PROG Observed: 06/13/2018 Status: COMPLETED Source: [place] 1:25 PM [facility] REPOSIT[facility] HNO ID: [id number] Author: Denae Berkowitz RN Service: (none) Author Type: Registered Nurse Type: Nursing Progress Note Filed: 06/13/2018 1:30 PM Note Text: Patient did not experience a fall within the Preoperative area. Patient did not experience a burn within the Preoperative area. Denae Berkowitz RN PT ED Observed: 06/13/2018 Status: COMPLETED Source: [place] 1:15 PM [facility] REPOSITORY HNO ID: [id number] Author: Denae Berkowitz RN Service: (none) Author Type: Registered Nurse Type: Patient Education Filed: 06/13/2018 1:30 PM Note Text: POST OP LEARNING RESPONSE INSTRUCTION PROVIDED TO: Patient and family member METHOD OF INSTRUCTION: Individual instruction Written instruction - handouts Verbal instruction PATIENT / FAMILY RESPONSE: Information received as demonstrated by interest and questions FOLLOW-UP PLAN: Follow up phone call. Contact information given. SUPPLEMENTAL MATERIAL: Procedure discharge instructions REFERRAL (RECOMMENDATION): None Electronically Signed By: Denae Berkowitz RN In Department: AMBULATORY SURGERY NURSING PROG Observed: 06/13/2018 Status: COMPLETED Source: [place] 12:30 PM [facility] REPOSITORY HNO ID: [id number] Author: Francoise Jin RN Service: Nursing Author Type: Registered Nurse Type: Nursing Progress Note Filed: 06/13/2018 12:30 PM Note Text: Patient did not experience a fall within the Intraoperative area. Patient did not experience a burn within the Intraoperative area. Francoise Jin RN NURSING PROG Observed: 06/13/2018 Status: COMPLETED Source: [place] 11:45 AM [facility] REPOSIT[facility] HNO ID: [id number] Author: Denae Berkowitz RN Service: (none) Author Type: Registered Nurse Type: Nursing Progress Note Filed: 06/13/2018 1:18 PM Note Text: [facility] PRE-OP NURSING HAND OFF NOTE SBAR Hand off given to Francoise Jin RN. Hand off was communicated verbally and at the patient's bedside and all questions were answered. FALLS/GALLEGO Patient did not experience a fall within the Preoperative area. Patient did not experience a burn within the Preoperative area. Denae Berkowitz RN HISTORY PHYSICAL Observed: 06/13/2018 Status: COMPLETED Source: [place] 10:43 AM [facility] RE[facility]IT[facility] HNO ID: [id number] Author: Alexandr Ngo Service: General Surgery Author Type: Physician Type: HANDP Filed: 06/13/2018 10:43 AM Note Text: HISTORY AND PHYSICAL ? Atif Roberson Haider 1950 ? REFERRING PHYSICIAN: [facility]* ? CHIEF COMPLAINT: Consult (colonoscopy) ? HPI: The patient is a 68 year old female referred for endoscopy. Atif notes no history of colon complaints. ? The patient notes no history of upper GI complaints. He specifically denies blood per rectum or melena. ? The patient noted worsening fatigue and shortness of breath with exercise. She notes she is normally quite active. ? Atif has not undergone prior endoscopy. ? She presented to [facility] with shortness of breath. She was found to have a hemoglobin of admission of 4.5. There was a clinical suggestion of congestive heart failure but after transfusion and then diuresis she underwent echocardiogram that demonstrated no abnormalities and felt that this was really from acute anemia and not truly congestive heart failure. She is referred for endoscopy. Due to severe anemia of unknown etiology ? PAST MEDICAL HISTORY PAST MEDICAL HISTORY Diagnosis Date - Hypertension ? ? ? PAST SURGICAL HISTORY PAST SURGICAL HISTORY Procedure Laterality Date - PAST SURGICAL HISTORY OF ? ? ? abdominal hyst/ovaries remain - PAST SURGICAL HISTORY OF ? ? ? tonsils ? ? ? CURRENT MEDICATIONS ? Current Outpatient Prescriptions: lisinopril (ZESTRIL, PRINIVIL) 5 mg tablet Take 5 mg by mouth once daily. naproxen sodium (ALEVE) 220 mg cap Take 220 mg by mouth once daily. multivitamins(DAILY VITAMIN TAB) Take one(1) tablet daily. vitamin b complex(B COMPLEX 1 TAB) Take one(1) tablet daily. gluc griffin/chondro griffin a/vit c/mn(GLUCOSAMINE CHONDROITIN MAXIMUM STRENGTH 500 MG-400 MG CAP) Take one daily.. ? No current facility-administered medications for this visit. ? ALLERGIES: Patient has no known allergies. ? PERSONAL HISTORY: SOCIAL HISTORY Social History Marital status: Spouse name: Yecenia Years of education: Number of children: 4 ? 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 Social History Main Topics Smoking status: Never Smoker ? Smokeless tobacco: Never Used Alcohol use: No Drug use: No Sexual activity: Yes Partners with: Male ? ? FAMILY HISTORY: FAMILY HISTORY FAMILY HISTORY Problem Relation Age of Onset - Hypertension Mother ? - Diabetes Father ? - Cancer Maternal Grandmother ? - None Brother ? - None Brother ? - None Brother ? - None Sister ? - Breast Cancer Sister ? ? ? REVIEW OF SYMPTOMS: The review of systems data was entered by the nurse and reviewed by me ? There are no exam notes on file for this visit. ? PHYSICAL EXAMINATION: ? General: The patient is 68 year old female, well nourished, well hydrated in no acute distress. The patient is oriented to time, place, and person. ? VITALS: Blood pressure 118/64, pulse 90, weight 94.5 kg (208 lb 6.4 oz). There is no height or weight on file to calculate BMI. ? HEENT: Normal cephalic, ataumatic, pupils are equally round, sclera are anicteric, mucous membranes are moist, oropharynx is clear. Neck has no masses, asymmetry or lymphadenopathy. Thyroid is unremarkable. ? Respiratory: Clear to auscultation and percussion. Normal respiratory excursion and pattern. ? Cardiac: Examination is regular rate and rhythm. ? Abdominal exam: Soft, nontender, with no palpable masses. No hepatosplenomegaly. No palpable hernias. ? Rectal exam: exam deferred ? Extremities: no clubbing, cyanosis or edema. No adenopathy. ? Other: ? LABORATORY VALUES: As Noted ? RADIOLOGIC STUDIES: As Noted ? Assessment IMPRESSION: Anemia ? PLAN: I plan to perform upper and lower endoscopy. We discussed the risks and benefits of the planned endoscopy. I have informed the patient that complications can occur including failure to complete the endoscopy and perforation. The patient had the opportunity to ask questions concerning the planned endoscopy. My staff has also explained the procedure to the patient in understandable terms and has given the patient printed material concerning the procedure. The patient freely consents to surgery. ? I plan to use golytely bowel preparation for endoscopy ? ? ? Diagnoses: (D50.9) Iron deficiency anemia, unspecified iron deficiency anemia type (primary encounter diagnosis) ? ? Return to Clinic: The patient is instructed to follow-up with me after the testing has been completed. ? Alexandr Ngo MD PT ED Observed: 06/13/2018 Status: COMPLETED Source: [place] 9:40 AM [facility] REPOSITORY [facility] ID: [id number] Author: Denae Berkowitz RN Service: (none) Author Type: Registered Nurse Type: Patient Education Filed: 06/13/2018 9:56 AM Note Text: Discharge Instructions were reviewed pre-operatively with the patient and patient's spouse. All questions and concerns were addressed. Denae Berkowitz RN PRE OP LEARNING ASSESSMENT PROCEDURE/SURGERY: GI PROCEDURES: Colonoscopy and EGD READINESS TO LEARN COGNITIVE ABILITY: Alert and oriented MOTIVATION TO LEARN: Interested FAMILY SUPPORT: High - Very involved in pt care PATIENT LEARNS BEST BY: Individual Instruction FACTORS AFFECTING LEARNING: None PHYSICAL LIMITATIONS AFFECTING LEARNING: None Electronically Signed By: Denae Berkowitz RN In Department: AMBULATORY SURGERY SURGICAL PATHOLOGY Observed: 06/13/2018 Status: C Source: [place] 12:00 AM [facility] REPOSITORY ADDENDUM PRESENT Specimen originated from [facility] Specimen #: [id number] Submitting Physician: ALEXANDR NGO ([id number]) FINAL DIAGNOSIS 1. Stomach, antrum, biopsy - Mild chronic inactive gastritis with reactive epithelial changes (see comment). 2. Stomach, ulcer, margins, biopsy - Chronic active gastritis with reactive epithelial changes. - No evidence of dysplasia or carcinoma. 3. Esophagus, distal, biopsy - Esophageal squamous mucosa with no diagnostic alteration. - No evidence of eosinophilic esophagitis. /[facility] 06/16/2018 COMMENT 1. H. pylori immunostain has been ordered and the results will be reported separately as an addendum. Perry Cedillo M.D. (Electronic Signature) SPECIMEN SUBMITTED A: ANTRUM, BIOPSY H/H B: ANTRUM ULCER MARGIN, BIOPSY C: DISTAL ESOPHAGUS, BIOPSY ADDENDUM Date Ordered: 06/16/2018 Date Reported: 06/16/2018 Given the background of chronic gastritis a Helicobacter pylori immunostain was performed on block A1 and is negative for Helicobacter pylori organisms. Laboratory Developed Test (LDT) Disclaimer: Positive and negative controls stain appropriately. Performance characteristics of immunohistochemical, immunofluorescent and chromogenic in-situ hybridization tests have been determined by [facility]'s [facility] Pathology and Laboratory Medicine [place] ([facility]) in a manner consistent with CLIA requirements. One or more of these tests have not been cleared or approved by the FDA. [facility] is regulated under CLIA as qualified to perform high-complexity testing. These tests are used for clinical purposes. They should not be regarded as investigational or for research. KL/gp 06/16/2018 Addendum Pathologist: Perry Cedillo M.D. Electronic Signature CLINICAL DATA D64.9 GROSS DESCRIPTION A. Received in formalin are two pieces of grewal, soft tissue aggregating to 0.5 x 0.2 x 0.2 cm. Totally submitted in one cassette. B. Received in formalin is one piece of grewal, soft tissue measuring 0.4 x 0.2 x 0.2 cm. Totally submitted in one cassette. C. Received in formalin is one piece of grewal, soft tissue measuring 0.7 x 0.2 x 0.1 cm. Totally submitted in one cassette. Gross examination performed at [facility], [address] [place] [address] 06/14/2018 12:09:05 AM Date of Report: 06/16/2018 Date of Procedure: 06/13/2018 Date of Receipt: 06/13/2018 Submitted by: ALEXANDR NGO ([id number]) Location: [facility] Diagnostic interpretation performed at [place] [address]. PROGRESS Observed: 06/03/2018 Status: COMPLETED Source: [place] 12:11 PM [facility] REPOSITORY [facility] ID: [id number] Author: Alexandr Ngo Service: (none) Author Type: Physician Type: Progress Notes Filed: 06/03/2018 12:17 PM Note Text: HISTORY AND PHYSICAL Atif Maloney 1950 REFERRING PHYSICIAN: Shanna Ragsdale* CHIEF COMPLAINT: Consult (colonoscopy) HPI: The patient is a 68 year old female referred for endoscopy. Atif notes no history of colon complaints. The patient notes no history of upper GI complaints. He specifically denies blood per rectum or melena. The patient noted worsening fatigue and shortness of breath with exercise. She notes she is normally quite active. Atif has not undergone prior endoscopy. She presented to [facility] with shortness of breath. She was found to have a hemoglobin of admission of 4.5. There was a clinical suggestion of congestive heart failure but after transfusion and then diuresis she underwent echocardiogram that demonstrated no abnormalities and felt that this was really from acute anemia and not truly congestive heart failure. She is referred for endoscopy. Due to severe anemia of unknown etiology PAST MEDICAL HISTORY Diagnosis Date - Hypertension PAST SURGICAL HISTORY Procedure Laterality Date - PAST SURGICAL HISTORY OF abdominal hyst/ovaries remain - PAST SURGICAL HISTORY OF tonsils Current Outpatient Prescriptions: lisinopril (ZESTRIL, PRINIVIL) 5 mg tablet Take 5 mg by mouth once daily. naproxen sodium (ALEVE) 220 mg cap Take 220 mg by mouth once daily. multivitamins(DAILY VITAMIN TAB) Take one(1) tablet daily. vitamin b complex(B COMPLEX 1 TAB) Take one(1) tablet daily. gluc griffin/chondro griffin a/vit c/mn(GLUCOSAMINE CHONDROITIN MAXIMUM STRENGTH 500 MG-400 MG CAP) Take one daily.. No current facility-administered medications for this visit. ALLERGIES: Patient has no known allergies. 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 PHYSICAL EXAMINATION: General: The patient is 68 year old female, well nourished, well hydrated in no acute distress. The patient is oriented to time, place, and person. VITALS: Blood pressure 118/64, pulse 90, weight 94.5 kg (208 lb 6.4 oz). There is no height or weight on file to calculate BMI. HEENT: Normal cephalic, ataumatic, pupils are equally round, sclera are anicteric, mucous membranes are moist, oropharynx is clear. Neck has no masses, asymmetry or lymphadenopathy. Thyroid is unremarkable. Respiratory: Clear to auscultation and percussion. Normal respiratory excursion and pattern. Cardiac: Examination is regular rate and rhythm. Abdominal exam: Soft, nontender, with no palpable masses. No hepatosplenomegaly. No palpable hernias. Rectal exam: exam deferred Extremities: no clubbing, cyanosis or edema. No adenopathy. Other: LABORATORY VALUES: As Noted RADIOLOGIC STUDIES: As Noted Assessment IMPRESSION: Anemia PLAN: I plan to perform upper and lower endoscopy. We discussed the risks and benefits of the planned endoscopy. I have informed the patient that complications can occur including failure to complete the endoscopy and perforation. The patient had the opportunity to ask questions concerning the planned endoscopy. My staff has also explained the procedure to the patient in understandable terms and has given the patient printed material concerning the procedure. The patient freely consents to surgery. I plan to use golytely bowel preparation for endoscopy Diagnoses: (D50.9) Iron deficiency anemia, unspecified iron deficiency anemia type (primary encounter diagnosis) Return to Clinic: The patient is instructed to follow-up with me after the testing has been completed. Alexandr Ngo MD CNOV Observed: 06/01/2018 Status: COMPLETED Source: [place] 10:10 AM [facility] RE[facility] Office Visit ([facility]ENSWS) ATIF MALONEY ([id number]) 1950 F [place] Date Time Provider Department 06/01/18 10:10 AM ALEXANDR NGO During your visit today, we recorded the following information about you: Pulse Blood pressure Weight 90/minute 118/64 94.5 kg Alexandr Ngo MD 06/03/2018 12:17 PM Signed HISTORY AND PHYSICAL Atif Maloney 1950 REFERRING PHYSICIAN: [facility]* CHIEF COMPLAINT: Consult (colonoscopy) HPI: The patient is a 68 year old female referred for endoscopy. Atif notes no history of colon complaints. The patient notes no history of upper GI complaints. He specifically denies blood per rectum or melena. The patient noted worsening fatigue and shortness of breath with exercise. She notes she is normally quite active. Atif has not undergone prior endoscopy. She presented to [facility] with shortness of breath. She was found to have a hemoglobin of admission of 4.5. There was a clinical suggestion of congestive heart failure but after transfusion and then diuresis she underwent echocardiogram that demonstrated no abnormalities and felt that this was really from acute anemia and not truly congestive heart failure. She is referred for endoscopy. Due to severe anemia of unknown etiology PAST MEDICAL HISTORY Diagnosis Date - Hypertension PAST SURGICAL HISTORY Procedure Laterality Date - PAST SURGICAL HISTORY OF abdominal hyst/ovaries remain - PAST SURGICAL HISTORY OF tonsils Current Outpatient Prescriptions: lisinopril (ZESTRIL, PRINIVIL) 5 mg tablet Take 5 mg by mouth once daily. naproxen sodium (ALEVE) 220 mg cap Take 220 mg by mouth once daily. multivitamins(DAILY VITAMIN TAB) Take one(1) tablet daily. vitamin b complex(B COMPLEX 1 TAB) Take one(1) tablet daily. gluc griffin/chondro griffin a/vit c/mn(GLUCOSAMINE CHONDROITIN MAXIMUM STRENGTH 500 MG-400 MG CAP) Take one daily.. No current facility-administered medications for this visit. ALLERGIES: Patient has no known allergies. 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 PHYSICAL EXAMINATION: General: The patient is 68 year old female, well nourished, well hydrated in no acute distress. The patient is oriented to time, place, and person. VITALS: Blood pressure 118/64, pulse 90, weight 94.5 kg (208 lb 6.4 oz). There is no height or weight on file to calculate BMI. HEENT: Normal cephalic, ataumatic, pupils are equally round, sclera are anicteric, mucous membranes are moist, oropharynx is clear. Neck has no masses, asymmetry or lymphadenopathy. Thyroid is unremarkable. Respiratory: Clear to auscultation and percussion. Normal respiratory excursion and pattern. Cardiac: Examination is regular rate and rhythm. Abdominal exam: Soft, nontender, with no palpable masses. No hepatosplenomegaly. No palpable hernias. Rectal exam: exam deferred Extremities: no clubbing, cyanosis or edema. No adenopathy. Other: LABORATORY VALUES: As Noted RADIOLOGIC STUDIES: As Noted Assessment IMPRESSION: Anemia PLAN: I plan to perform upper and lower endoscopy. We discussed the risks and benefits of the planned endoscopy. I have informed the patient that complications can occur including failure to complete the endoscopy and perforation. The patient had the opportunity to ask questions concerning the planned endoscopy. My staff has also explained the procedure to the patient in understandable terms and has given the patient printed material concerning the procedure. The patient freely consents to surgery. I plan to use golytely bowel preparation for endoscopy Diagnoses: (D50.9) Iron deficiency anemia, unspecified iron deficiency anemia type (primary encounter diagnosis) Return to Clinic: The patient is instructed to follow-up with me after the testing has been completed. Alexandr Ngo MD Referring Provider: [facility] [[id number]] Allergies As of Date: 06/01/2018 (No Known Allergies) Date Reviewed: 06/01/2018 Reviewed by: Alexandr Ngo - Fully Assessed Reason for Visit: Consult [173] Cmt: colonoscopy Primary Visit Diagnosis:Iron deficiency anemia, unspecified iron deficiency anemia type [D50.9] Order(s):EDITA PT ED DIGESTIVE DISEASES [[id number]] Order #: [id number]: 1 [] peg 3350-Electrolytes (GOLYTELY) 236-22.74-6.74 -5.86 gram suspensionTake 4,000 mL by mouth one time only for 1 dose. Refer to printed prep instructions from your doctor.Disp: 1 BottleRfl: 0 EGD [[id number]] Order #: [id number] FUTURE COLONOSCOPY - DIAGNOSTIC [[id number]] Order #: [id number] FUTURE EDITA PT ED DIGESTIVE DISEASES [[id number]] Order #: [id number]. #:[id number]: [id number] Prescriptions as of 06/01/2018 Sig: LISINOPRIL 5 MG TABLET Take 5 mg by mouth once daily. NAPROXEN SODIUM 220 MG CAPSULE Take 220 mg by mouth once roderick* DAILY VITAMIN TABLET Take one(1) tablet daily. B COMPLEX 1 TABLET Take one(1) tablet daily. GLUCOSAMINE CHONDROITIN MAXIM* Take one daily.. PEG 3350-ELECTROLYTES 236 GRA* Take 4,000 mL by mouth one ti* Problem List As Of Date: 06/01/2018 (None) Prescriptions ordered this encounter Disp Refills Start End PEG 3350-ELECTROLYTES 236 GRAM-22.74* 1 Will* 0 06/01/2018 06/01/2018 Route: ORAL Sig: Take 4,000 mL by mouth one time only for 1 dose. Refer to printed prep instructions from your doctor. Encounter Status:Closed by ALEXANDR NGO MD on 06/03/18 HOSP Observed: 06/01/2018 Status: COMPLETED Source: [place] 12:00 AM [facility] [place] REPOSITORY Patient:Atif Maloney MRN: <[id number]> Height:5' .75(1.543 m) Weight:208 lb 5.4 oz (94.5 kg) Outpatient Medications as of 06/13/18: lisinopril (ZESTRIL, PRINIVIL) 5 mg tablet naproxen sodium (ALEVE) 220 mg cap multivitamins(DAILY VITAMIN TAB) vitamin b complex(B COMPLEX 1 TAB) gluc griffin/chondro griffin a/vit c/mn(GLUCOSAMINE CHONDROITIN MAXIMUM STRENGTH 500 MG-400 MG CAP) Admission/Clinic Administered Medications as of 06/13/18: lactated ringers infusion Problem List: No problem list on file for this patient. Allergies: No Known Allergies Date Verified:06/13/18 Lab Values No results within the last 30 days for the following basenames: K,HCT Progress Notes ([facility]): Alexandr Ngo MD 06/03/2018 12:17 PM Signed HISTORY AND PHYSICAL Atif Maloney 1950 REFERRING PHYSICIAN: [facility]* CHIEF COMPLAINT: Consult (colonoscopy) HPI: The patient is a 68 year old female referred for endoscopy. Atif notes no history of colon complaints. The patient notes no history of upper GI complaints. He specifically denies blood per rectum or melena. The patient noted worsening fatigue and shortness of breath with exercise. She notes she is normally quite active. Atif has not undergone prior endoscopy. She presented to [facility] with shortness of breath. She was found to have a hemoglobin of admission of 4.5. There was a clinical suggestion of congestive heart failure but after transfusion and then diuresis she underwent echocardiogram that demonstrated no abnormalities and felt that this was really from acute anemia and not truly congestive heart failure. She is referred for endoscopy. Due to severe anemia of unknown etiology PAST MEDICAL HISTORY Diagnosis Date - Hypertension PAST SURGICAL HISTORY Procedure Laterality Date - PAST SURGICAL HISTORY OF abdominal hyst/ovaries remain - PAST SURGICAL HISTORY OF tonsils Current Outpatient Prescriptions: lisinopril (ZESTRIL, PRINIVIL) 5 mg tablet Take 5 mg by mouth once daily. naproxen sodium (ALEVE) 220 mg cap Take 220 mg by mouth once daily. multivitamins(DAILY VITAMIN TAB) Take one(1) tablet daily. vitamin b complex(B COMPLEX 1 TAB) Take one(1) tablet daily. gluc griffin/chondro griffin a/vit c/mn(GLUCOSAMINE CHONDROITIN MAXIMUM STRENGTH 500 MG-400 MG CAP) Take one daily.. No current facility-administered medications for this visit. ALLERGIES: Patient has no known allergies. 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 PHYSICAL EXAMINATION: General: The patient is 68 year old female, well nourished, well hydrated in no acute distress. The patient is oriented to time, place, and person. VITALS: Blood pressure 118/64, pulse 90, weight 94.5 kg (208 lb 6.4 oz). There is no height or weight on file to calculate BMI. HEENT: Normal cephalic, ataumatic, pupils are equally round, sclera are anicteric, mucous membranes are moist, oropharynx is clear. Neck has no masses, asymmetry or lymphadenopathy. Thyroid is unremarkable. Respiratory: Clear to auscultation and percussion. Normal respiratory excursion and pattern. Cardiac: Examination is regular rate and rhythm. Abdominal exam: Soft, nontender, with no palpable masses. No hepatosplenomegaly. No palpable hernias. Rectal exam: exam deferred Extremities: no clubbing, cyanosis or edema. No adenopathy. Other: LABORATORY VALUES: As Noted RADIOLOGIC STUDIES: As Noted Assessment IMPRESSION: Anemia PLAN: I plan to perform upper and lower endoscopy. We discussed the risks and benefits of the planned endoscopy. I have informed the patient that complications can occur including failure to complete the endoscopy and perforation. The patient had the opportunity to ask questions concerning the planned endoscopy. My staff has also explained the procedure to the patient in understandable terms and has given the patient printed material concerning the procedure. The patient freely consents to surgery. I plan to use golytely bowel preparation for endoscopy Diagnoses: (D50.9) Iron deficiency anemia, unspecified iron deficiency anemia type (primary encounter diagnosis) Return to Clinic: The patient is instructed to follow-up with me after the testing has been completed. Alexandr Ngo MD 12 LEAD ELECTROCARDIOGRAM Observed: 05/31/2018 Status: F Source: [place] 1:15 PM [facility] REPOSITORY [facility] Cardiovascular Services [address] [place] [address] 12 Lead EKG 05/23/18 1641 MR#: [id number] Acct: [id number] Name: ATIF MALONEY Rep #: [id number] : 1950 68 From: Rashard Pastor MD Attending Dr: Jessa Odell MD Status: DIS IN Ordering Dr: Demetrius Gamboa DO Date: 05/23/18 Location: [facility] Sex: F C Admitted: 05/23/18 Test Reason : ABNL LABS Blood Pressure : / mmHG Vent. Rate : 097 BPM Atrial Rate : 097 BPM P-R Int : 154 ms QRS Dur : 068 ms QT Int : 344 ms P-R-T Axes : 066 005 042 degrees QTc Int : 436 ms Normal sinus rhythm Normal ECG Confirmed by ABHINAV LOCKE, RASHARD ([id number]), digital editor DIETER FRAGA ([id number]) on 05/31/2018 1:15:05 PM Referred By: Abida Saleem Confirmed By:RASHARD PASTOR MD 05/31/18 1315 Date Rashard Pastor MD CC: Jessa Odell MD; Demetrius Gamboa DO; Abida Saleem DO Signed BASIC METABOLIC Collected: 05/30/2018 Status: F Source: [place] PROFILE (BMP) 9:02 AM [facility] REPOSITORY TYPE CODE TESTS RESULT OUT OF RANGE REFERENCE UNITS LAB L501.0100 74-106 mg/dL Normal GLU 98 Result Comment: Please note revised GLUCOSE reference range effective 2017. LAB L501.1000 7-18 mg/dL High BUN 27 LAB L501.1100 0.55-1.02 mg/dL High CREAT,SERUM 1.23 Result Comment: The validity of the calculated GFR AND GFRAA in patients over 70 years has not been determined. Clinical correlation is essential. LAB L501.1110 >60 mL/min Low EST GFR 46 Result Comment: Non- GFR Calc LAB L501.1115 >60 mL/min Low EST GFR - AA 56 Result Comment: GFR Calc LAB L501.1300 10-20 RATIO High BUN/CRE 22.0 LAB L501.2200 8.5-10.1 mg/dL CA Normal 8.9 LAB L501.5300 136-145 mmol/L NA Normal 142 LAB L501.5600 3.5-5.1 mmol/L K Normal 4.4 LAB L501.5900 98-107 mmol/L CL Normal 106 LAB L501.6100 21.0-32.0 mmol/L Normal CO2 26.0 LAB L501.6200 5-15 Normal GAP 10 Performed By: #### L500.2500 #### [facility] [address] [place], [address] DISCHARGE SUMMARY Observed: 05/25/2018 Status: F Source: [place] 1:54 PM [facility] REPOSITORY [facility] Medical Records Department [address] [place] [address] Discharge Summary 05/25/18 1025 MR#: [id number] Acct: [id number] Name: ATIF MALONEY Rep #: [id number] : 1950 68 From: Jessa Odell MD PCP: Abida Saleem DO Status: DIS IN Y Location: [place] [address] Discharge Date and Diagnosis Date of Admission: 05/23/18 Date of Discharge: 05/25/18 - Primary Discharge Diagnosis Active and Suspected Problems Anemia (Acute) Hospital Course and Treatment Imaging Results: 05/25/18 05:55 CXR [Chest 1 View (Portable)] [RAD] AM (NON MEDS) None Operations: None Procedures: None Summary of Care Provided: The patient is a 68 year old F no significant past medical history 5 years comes in with complaints of shortness of breath that has been going on for months. Patient had noted that this has been getting worse in the last few days but denied any chest pain no dizziness or syncope or presyncope. She denied any cardiac history. She was admitted with hemoglobin of 4.5. Denied any bleeding per rectum or melena stools. She is status post hysterectomy. Patient was found on imaging to have bilateral pleural effusions. She received 4 units of packed RBCs, with improvement in her symptoms. She also received IV Lasix for treatment of acute CHF, 2D echo had shown an EF of 65% with possible diastolic dysfunction. Patient diuresed more than 7.3 L of fluids. She was discharged home on Lasix, asked to follow-up with her primary care doctor and general surgery for colonoscopy and EGD. Hemoglobin at discharge was 9.5 Subjective: Patient was seen and examined. Denies any new complaints. Slightly short of breath on exertion. Been ambulating around the hallways. - Physical Exam General: Alert, Oriented x3, Cooperative, No apparent distress, - - obese HEENT: Atraumatic, PERRLA, EOMI, Normocephalic Oral: Moist Mucosa Neck: Supple, No JVD, Negative Carotid Bruits Lungs: Clear to auscultation, Normal air movement Cardiovascular: Regular rate, Regular Rhythm, Normal S1, Normal S2, No murmurs Abdomen: Bowel Sounds Present, Soft, Non Tender, Non-Distended, No Hepato-splenomegaly Extremities: No edema, Capillary Refill Less than 3 Seconds Skin: No rashes, No breakdown Musculoskeletal: No Tenderness to Palpation of Joints or Extremities Lymphatic: No Cervical, Supraclavicular, or Inguinal Adenopathy Neurological: Cranial nerves II-XII grossly intact, Neuro grossly intact Psych/Mental Status: Normal Affect, Appropriate Vital Signs Temp Pulse Resp BP Pulse Ox 99.1 F 84 16 130/62 H 94 05/25/18 08:00 05/25/18 08:33 05/25/18 08:33 05/25/18 08:16 05/25/18 08:46 Oxygen Flow Rate (L/min) 2 Oxygen Delivery Method Room Air Weight: 94.6 kg Body Mass Index (BMI) 43.2 Intake and Output for Last 24 Hours Intake Total 971 / 971 3420 / 3420 220 / 220 Output Total 6000 / 6000 1300 / 1300 Balance 971 / 971 -2580 / -2580 -1080 / -1080 Microbiology Past 72 Hours 05/23/18 16:40 Stool Occult Blood (AXEL) - Final Stool Laboratory Tests Past 24 Hrs WBC RBC Hgb Hct MCV WBC 7.8 RBC 4.24 Hgb 9.5 L Hct 31.8 L MCV 75.0 L MCH 22.4 L MCHC 29.9 L RDW 22.0 H Discharge Diet: Low fat/ Low Cholesterol, 2000 mg Sodium Diet Discharge Activity: Return to Normal Activity Home Medications: Medications to take at Discharge Furosemide [Lasix] 40 mg PO DAILY #60 tablet 05/25/18 Lisinopril [Zestril] 5 mg PO DAILY #30 tablet 05/25/18 Following Prescrptions Were Given to Patient: Furosemide [Lasix] 40 mg PO DAILY #60 tablet Lisinopril [Zestril] 5 mg PO DAILY #30 tablet Other Amb Orders: Basic Metabolic Profile (BMP) Location: Laboratory Primary Care Physician: Abida Saleem DO [Primary Care Provider] - Please follow up with your Primary Care Physician in: in 1 week Please Follow Up With: Alexandr Ngo MD When: 06/01/18 at 10:10am Disposition: Home Minutes spent on discharge:: 40 Patient Condition:: Stable Medical Necessity - Tobacco Use Smoking Status: Never smoker Tobacco Use: Non-smoker Meaningful Use Info Meaningful Use Diagnoses (Choose all that apply): None applicable Code Visit Inpatient E AND M: 07466 Disch Hosp 05/25/18 1354 <Electronically signed by Jessa Odell MD> Date Jessa Odell MD Cosigner Signature (if applicable): Date CC: Jessa Odell MD; Abida Saleem DO Signed DISCHARGE INSTRUCTION Observed: 05/25/2018 Status: F Source: [place] 10:25 AM [facility] REPOSITORY [facility] Medical Records Department [address] [place] [address] Instructions for Home/Discharge Instructions 05/25/18 1021 MR#: [id number] Acct: [id number] Name: PHAMARTIEATIF S Rep #: [id number] : 1950 68 From: Jessa Odell MD PCP: Abida Saleem DO Status: ADM IN - Discharge Diagnoses Current Active Problems: Current Active and Chronic Problems Anemia (Acute) Reason(s) for Visit for Discharge Instructions: Shortness of breath, anemia You will use the following diet at home:: Cardiac Your food should be the consistency of: Regular Your liquids should be the consistency of: Regular/Thin Discharge Activity: Return to Normal Activity Additional Instructions: Continue to remain active. Continue on fluid restriction for 1500mls. You should follow-up with your primary care doctor in 1 week. You will need repeat blood work within 1 week. Continue to use your incentive spirometer. Allergies/Adverse Reactions: Allergies No Known Allergies Allergy (Verified 05/23/18 15:03) Medications to take at Discharge Furosemide [Lasix] 40 mg PO DAILY #60 tablet 05/25/18 Lisinopril [Zestril] 5 mg PO DAILY #30 tablet 05/25/18 The following prescriptions were given: Furosemide [Lasix] 40 mg PO DAILY #60 tablet Lisinopril [Zestril] 5 mg PO DAILY #30 tablet Orders to be completed after discharge: Basic Metabolic Profile (BMP) Location: Laboratory Primary Care Physician: Abida Saleem DO [Primary Care Provider] - Please follow up with your Primary Care Physician in: in 1 week Test Results: Test results from this visit will be discussed in further detail at your follow-up appointment, if applicable. Please Follow Up With: Alexandr Ngo MD When: 06/01/18 at 10:10am Proposed Discharge Date: 05/25/18 05/25/18 1025 <Electronically signed by Jessa Odell MD> Date Jessa Odell MD CC: Abida Saelem DO BASIC METABOLIC Collected: 05/25/2018 Status: F Source: [place] PROFILE (BMP) 5:30 AM [facility] REPOSITORY TYPE CODE TESTS RESULT OUT OF RANGE REFERENCE UNITS LAB L501.0100 74-106 mg/dL Normal GLU 88 Result Comment: Please note revised GLUCOSE reference range effective 2017. LAB L501.1000 7-18 mg/dL Normal BUN 16 LAB L501.1100 0.55-1.02 mg/dL High CREAT,SERUM 1.11 Result Comment: The validity of the calculated GFR AND GFRAA in patients over 70 years has not been determined. Clinical correlation is essential. LAB L501.1110 >60 mL/min Low EST GFR 52 Result Comment: Non- GFR Calc LAB L501.1115 >60 mL/min Normal EST GFR - AA 63 Result Comment: GFR Calc LAB L501.1255 ml/min Normal Estimated CRCL 35.81 LAB L501.1300 10-20 RATIO Normal BUN/CRE 14.4 LAB L501.2200 8.5-10 mg/dL Normal .1 CA 8.6 LAB L501.5300 136-14 mmol/L Normal 5 NA 144 LAB L501.5600 3.5-5. mmol/L Normal 1 K 3.5 LAB L501.5900 98-107 mmol/L Normal CL 104 LAB L501.6100 21.0-3 mmol/L Normal 2.0 CO2 31.0 LAB L501.6200 5-15 Normal GAP 9 Performed By: #### L500.2500 #### [facility] [address] [facility] [place], [address] CBC-COMPLETE BLOOD CNT Collected: 05/25/2018 Status: F Source: [place] NO DIFF 5:30 AM [facility] REPOSITORY TYPE CODE TESTS RESULT OUT OF RANGE REFERENCE UNITS LAB L100.1000 4.4-11.0 K/mm3 Normal WBC 7.8 LAB L100.1200 4.2-5.4 M/mm3 Normal RBC 4.24 LAB L100.1300 12.0-15.0 g/dl Low HGB 9.5 LAB L100.1400 37-47 % Low HCT 31.8 LAB L100.1500 81-99 fL Low MCV 75.0 LAB L100.1600 27.0-32.0 pg Low MCH 22.4 LAB L100.1700 32-36 g/gl Low MCHC 29.9 LAB L100.1810 11.6-14.6 % High RDW CV 22.0 LAB L100.1820 35.1-43.9 fl High RDW SD 59.4 LAB L100.1900 150-450 K/mm3 Normal PLT 322 LAB L100.2000 6.2-12.0 fl Normal MPV 9.8 Performed By: #### L100.0500 #### [facility] [address] [place], [place], [address] CHEST 1 VIEW Observed: 05/25/2018 Status: F Source: [place] (PORTABLE) 12:00 AM [facility] REPOSITORY [facility] Imaging Services [address] [place] [address] Chest 1 View (Portable) MR#: [id number] Acct: [id number] Name: ATIF MALONEY Rep #: [id number] : 1950 F 68 From: Jaden Rios MD PCP: Abida Saleem DO Status: ADM IN Study: Chest 1 View (Portable) Date of Exam: 05/25/18 Exam# [id number] Ordering Dr: Mariella Carrasco STUDY: X-RAY CHEST REASON FOR EXAM: Female, 68 years old. Pleural effusion. TECHNIQUE: Single AP portable view of the chest. COMPARISON: None. FINDINGS: EKG electrodes are seen. Elevation of the right hemidiaphragm. There is no demonstrated pleural abnormality. Normal size heart. Normal mediastinum and pilar. Normal visualized pulmonary arteries. Normal visualized aortic arch and descending thoracic aorta. There is a dextroscoliosis of the thoracic spine. Normal visualized ribs, clavicles, and shoulders. There is no demonstrated abnormality of the visualized soft tissue structures of the upper abdomen. RAD/Chest 1 View (Portable) IMPRESSION: No acute abnormality is seen. Electronically Signed: Jaden Rios MD at 9:44 EDT Tel [phone], Service support , CC: SHAQUILLE Carrasco; Abida Saleem DO Technical Assistant: Signed ECHOCARDIOGRAM COMPLETE Observed: 05/24/2018 Status: F Source: [place] 2:52 PM [facility] REPOSITORY [facility] [place] [address] Echo Complete 05/24/18 0811 MR#: [id number] Acct: [id number] Name: ATIF MALONEY Rep #: [id number] : 1950 68 From: Demetrius Palm MD Attending Dr: Jessa Odell MD Status: ADM IN Ordering Dr: Mariella Carrasco Date: 05/23/18 Location: [facility] Sex: F C Admitted: 05/23/18 Reason For Study: Dyspnea/SOB Procedure This was a 2D Doppler, Color Flow transthoracic echocardiogram. Exam performed portable in patient room. Left Ventricle Normal size and thickness. Mid cavitary false tendon noted. The estimated ejection fraction is 65 %. Stage 1 diastolic dysfunction. No regional wall motion abnormalities noted. Right Ventricle Normal size and thickness. Normal systolic function. Atria The left atrium is mildly enlarged. Normal right atrium. Normal atrial septum. Mitral Valve The mitral valve is structurally normal. No prolapse or stenosis seen. Mild (1+) mitral valve insufficiency. Tricuspid Valve Normal tricuspid valve. Trivial tricuspid valve insufficiency. Right ventricular systolic pressure estimated to be 39 mmHg. Mild pulmonary hypertension. Aortic Valve Trisinus/trileaflet aortic valve. Pulmonic Valve Normal pulmonic valve. Great Vessels Normal aortic root. Normal arch. Normal inferior vena cava. Inferior vena cava collapse with sniff. Pericardium/Pleural No pericardial effusion. MMode/2D Measurements AND Calculations LVIDd: 4.7 cm IVSd: 1.3 cm Ao root diam: 3.0 cm LVIDs: 2.7 cm LVPWd: 1.1 cm LA dimension: 3.7 cm RVDd: 3.1 cm FS: 42.4 % LAV(MOD-bp): 49.3 ml LVAd ap4: 27.6 cm2 SV(MOD-sp4): 57.8 ml LAV(MOD-bp) Indexed: 25.8 ml/m2 EDV(MOD-sp4): 85.1 ml LAV(MOD-sp2): 35.7 ml EDV(sp4-el): 88.7 ml LAV(MOD-sp4): 62.0 ml LVAs ap4: 13.7 cm2 ESV(MOD-sp4): 27.3 ml ESV(sp4-el): 27.5 ml EF(MOD-sp4): 67.9 % EF(sp4-el): 69.0 % SV(sp4-el): 61.2 ml LA A4 area: 21.3 cm2 RA A4 area: 10.7 cm2 Time Measurements MV dec time: 0.12 sec Doppler Measurements AND Calculations MV E max hola: 106.6 cm/sec Lat Peak E' Hola: 8.6 cm/sec Med Peak E' Hola: 10.3 cm/sec MV A max hola: 149.9 cm/sec E/E' lat: 12.4 E/E' med: 10.3 MV E/A: 0.71 MV V2 max: 175.3 cm/sec MV P1/2t max hola: 143.5 cm/sec Ao V2 max: 188.8 cm/sec MV max P.3 mmHg MV P1/2t: 63.1 msec Ao max P.3 mmHg MV V2 mean: 100.2 cm/sec MV dec slope: 666.5 cm/sec2 Ao V2 mean: 128.6 cm/sec MV mean P.7 mmHg MVA(P1/2t): 3.5 cm2 Ao mean P.4 mmHg MV V2 VTI: 34.1 cm Ao V2 VTI: 35.3 cm LV V1 max: 148.5 cm/sec MR max hola: 526.7 cm/sec PA V2 max: 114.6 cm/sec LV V1 max P.8 mmHg MR max P.0 mmHg LV V1 mean P.9 mmHg LV V1 mean: 103.7 cm/sec LV V1 VTI: 29.5 cm TR max hola: 290.4 cm/sec TR max P.7 mmHg Interpretation Summary The estimated ejection fraction is 65 %. Stage 1 diastolic dysfunction. The left atrium is mildly enlarged. Mild (1+) mitral valve insufficiency. Trivial tricuspid valve insufficiency. Right ventricular systolic pressure estimated to be 39 mmHg. Mild pulmonary hypertension. There is no comparison study available. Ordering Physician: SHAQUILLE Kraft Referring Physician: Abida Saleem Performed By: Jorge De Santiago RCS 05/24/18 145 Date Demetrius Palm MD CC: SHAQUILLE Carrasco; Jessa Odell MD; Abida Saleem DO Date Dictated: 05/24/1811 Date Transcribed: 10/31/18 1451 Technical Assistant: Signed BASIC METABOLIC Collected: 05/24/2018 Status: F Source: [place] PROFILE (BMP) 6:04 AM [facility] REPOSITORY TYPE CODE TESTS RESULT OUT OF RANGE REFERENCE UNITS LAB L501.0100 74-106 mg/dL High GLU 126 Result Comment: Fasting Glucose result greater than or equal to 126 mg/dL suggests DIABETES MELLITUS per A.D.A. criteria. Please note revised GLUCOSE reference range effective 2017. LAB L501.1000 7-18 mg/dL Normal BUN 14 LAB L501.1100 0.55-1.02 mg/dL High CREAT,SERUM 1.18 Result Comment: The validity of the calculated GFR AND GFRAA in patients over 70 years has not been determined. Clinical correlation is essential. LAB L501.1110 >60 mL/min Low EST GFR 49 Result Comment: Non- GFR Calc LAB L501.1115 >60 mL/min Low EST GFR - AA 59 Result Comment: GFR Calc LAB L501.1255 ml/min Normal Estimated CRCL 33.69 LAB L501.1300 10-20 RATIO Normal BUN/CRE 11.9 LAB L501.2200 8.5-10 mg/dL Normal .1 CA 8.8 LAB L501.5300 136-14 mmol/L Normal 5 NA 143 LAB L501.5600 3.5-5. mmol/L Normal 1 K 3.5 LAB L501.5900 98-107 mmol/L Normal CL 104 LAB L501.6100 21.0-3 mmol/L Normal 2.0 CO2 28.0 LAB L501.6200 5-15 Normal GAP 11 Performed By: #### L500.2500 #### [facility] [address] [place], [address] CBC W/DIFF, AUTOMATED Collected: 05/24/2018 Status: F Source: [place] 6:04 AM [facility] REPOSITORY TYPE CODE TESTS RESULT OUT OF RANGE REFERENCE UNITS LAB L100.1000 4.4-11.0 K/mm3 Normal WBC 5.5 LAB L100.1200 4.2-5.4 M/mm3 Low RBC 3.24 LAB L100.1300 12.0-15.0 g/dl Low HGB 6.8 LAB L100.1400 37-47 % Low HCT 23.5 LAB L100.1500 81-99 fL Low MCV 72.5 LAB L100.1600 27.0-32.0 pg Low MCH 21.0 LAB L100.1700 32-36 g/gl Low MCHC 28.9 LAB L100.1810 11.6-14.6 % High RDW CV 21.8 LAB L100.1820 35.1-43.9 fl High RDW SD 54.4 LAB L100.1900 150-450 K/mm3 Normal PLT 357 LAB L100.2000 6.2-12.0 fl Normal MPV 10.2 LAB L100.2100 47-70 % Normal NEUT% 63.6 LAB L100.2200 19-41 % Normal LY% 26.4 LAB L100.2300 0-10 % Normal MONO% 7.5 LAB L100.2400 0-5 % Normal EO% 1.6 LAB L100.2500 0-1 % Normal BASO% 0.5 LAB L100.2550 0.0-0.9 % Normal IM GRAN % 0.400 Result Comment: IG% - Immature Granulocytes (promyelocytes, myelocytes and metamyelocytes) > 1% indicates that a LEFT SHIFT is Present. LAB L100.2620 2.0-7.7 X10 3/uL Absolute Neut Normal 3.5 LAB L100.2720 0.83-4.51 X10 3/ul Absolute Lymph Normal 1.44 LAB L100.5500 ADEQ PLT EST Normal ADEQUATE LAB L100.7300 ANISO Normal 2+ LAB L100.7500 POLYCHROMASIA Normal 1+ LAB L100.7600 HYPOCHROMASIA Normal 3+ LAB L100.7700 MICROCYTES Normal 2+ Performed By: #### L100.0100 #### [facility] [address] [facility], [address] EMERGENCY DEPARTMENT Observed: 05/24/2018 Status: F Source: [place] SUMMARY 12:00 AM [facility] REPOSITORY [facility] Medical Records Department [address] [address] Emergency Department Summary 05/23/18 2314 MR#: [id number] Acct: [id number] Name: ATIF MALONEY Rep #: [id number] : 1950 68 From: Demetrius Gamboa DO PCP: Abida Saleem DO Status: ADM IN - ER Visit Summary Date of Service: 05/23/18 Chief Complaint: Abnormal labs History of Present Illness: The patient is a 68 F who was referred to the emergency department by primary care. Patient states that she does not really have any medical problems and in fact has not been to a physician for over 5 years. She states that early spring and summer family states that she started looking a little pale but then she started to grewal and summertime. About that time she started noticing some progressive shortness of breath that is now more significant and sometimes even at rest and with conversation. She denies any chest pain. No weight loss or weight gain she denies any black or bloody stools. No prior colonoscopy. She went to go see primary care Dr Saleem and had outpatient labs performed. This showed a hemoglobin of 4.5 RDW of 16. Platelets 355 and a white blood cell count 6.4. Patient had a total bilirubin of 0.[address] Trisha of the chest that showed small bilateral pleural effusions and CT of the abdomen pelvis that showed possible diverticulitis. Patient's not having any abdominal pain. She notes her stool is light brown. She notes a faster than normal heart rate and palpitations Physical Examination: Afebrile vital signs are stable Gen: Well-nourished well-developed Head: Normocephalic atraumatic Eyes: Perrl EOMI ENT: TMs clear no rhinorrhea moist mucous membranes Neck: Supple no lymphadenopathy no JVD nontender CVS: Regular rate rhythm no murmurs normal S1-S2 Respiratory: No distress clear to auscultation bilaterally chest nontender Abdomen: Soft nontender nondistended normal bowel sounds no masses Back: Nontender Extremity: Nontender no edema Skin: Parlor Neuro: alert orientated 3 CN II-XII intact normal strength sensation reflexes gait cerebellar Psych: Normal affect normal mood Test Results: Iron studies were ordered Hemoccult was negative. She is typed and crossed for 2 units. EKG showed a sinus rhythm at a rate of 97. Emergency Department Course and Treatment: Plan is admission into the hospital. She will be transfused and further evaluation into her anemia embarked upon. Impression: 1. Anemia requiring transfusion This note was generated with [employer] dictation software. It may contain incorrect words, spelling, and punctuation that were not noted in review of the chart prior to signing ED Disposition - Plan for ED Patient: Disposition: Acute Care [facility] Chief Complaint: Abn Labs What to do if you have Problems For any increased pain, shortness of breath, bleeding, nausea or vomiting, chest pain, or any unexpected problems, contact your Primary Care Provider. Call [facility] ([phone]) or report to the closest Emergency Room. Call 911 if necessary. 05/24/18 0000 <Electronically signed by Demetrius Gamboa DO> Date Demetrius Gamboa DO Cosigner Signature (If Indicated): Date CC: Abida Saleem DO HISTORY AND PHYSICAL Observed: 05/23/2018 Status: F Source: [place] EXAM 9:21 PM [facility] REPOSITORY [facility] Medical Records Department [address] [place] [address] History and Physical 05/23/18 1754 MR#: [id number] Acct: [id number] Name: ATIF MALONEY Rep #: [id number] : 1950 68 From: Mariella Carrasco NURSING CARE ATTENDANT-C PCP: Abida Saleem DO Status: ADM IN Location: [facility] [id number] <Mariella Carrasco - Last Filed: 05/23/18 18:20> Problem List (1) Anemia Status: Acute History of Present Illness Date of Admission: 05/23/18 Chief Complaint: Shortness of breath The patient is a 68 year old F who presents emergency room due to increased shortness of breath. Patient states around December or January she noticed shortness of breath, worse with exertion. She states recently this has increased in severity. She denies chest pain. Complains of generalized fatigue. Reports bilateral lower extremity edema. Denies blood in stool/black stools. Denies abdominal pain. Denies history of colonoscopy. Denies cardiac history. Denies dizziness, lightheadedness, syncope. States she has not seen a primary care physician in 5 years. Does not take any home medications. She established with primary care physician who she saw today. Her hemoglobin was noted to be 4.5 and she was referred to emergency room. Past Medical History Allergies No Known Allergies Allergy (Verified 05/23/18 15:03) Home Medications: Ambulatory Orders Medication Instructions Recorded NK 05/23/18 Surgical History: hysterectomy, tonsillectomy Psychiatric History: No pertinent psych hx GARDE MANAGER History: No pertinent GARDE MANAGER history Lives: Spouse/ Significant Other Smoking Status: Never smoker Alcohol: None Drugs: None - *Family History Maternal History Items: Heart Disease - CHF Paternal History Items: - - Parkinson's disease Review of Systems Constitutional: Denies: Chills, Fever, Weight Change HEENT: Denies: Head Aches, Sinus Congestion, Sinus Drainage Cardiovascular: Reports: Edema - lower extremity. Denies: Chest Pain, Light Headedness, Palpitations, Syncope Respiratory: Reports: Shortness of Breath - Increased with exertion.. Denies: Cough, Shortness of breath at rest, Sputum production Gastrointestinal: Denies: Abdominal Pain, Constipation, Diarrhea, Hematochezia, Nausea, Melena, Vomiting Genitourinary: Denies: Dysuria Musculoskeletal: Denies: Joint Pain, Joint Tenderness Skin: Denies: Rash, Wounds Neurological: Denies: Numbness, Tingling, Focal weakness Psychiatric: Denies: Anxiety, Depression, Homicidal Ideations, Suicidal Ideations Hematologic/ Lymphatic: Denies: Easy Bruising, Easy Bleeding VTE Information - Inpt Only VTE Present on Admission: No VTE Mechan Device Prophylaxis: SCD's VTE Pharm Prophylaxis ordered?: No Reason prophylaxis not ordered:: Medical Contraindication Patient Problems: Active and Suspected Problems Anemia (Acute) - Physical Exam General: Alert, Oriented x3, Cooperative, No apparent distress HEENT: Atraumatic, PERRLA, EOMI, Normocephalic Neck: Supple, No JVD, Negative Carotid Bruits Lungs: Clear to auscultation, Diminished Cardiovascular: Regular rate, Regular Rhythm, Normal S1, Normal S2, No murmurs Abdomen: Bowel Sounds Present, Soft, Non Tender, Non-Distended, Obese Extremities: No clubbing, No cyanosis, Capillary Refill Less than 3 Seconds, Edema - BLLE non-pitting Skin: No rashes, No breakdown Musculoskeletal: No Tenderness to Palpation of Joints or Extremities Neurological: Cranial nerves II-XII grossly intact, Neuro grossly intact Psych/Mental Status: Normal Affect, Appropriate Vital Signs Temp Pulse Resp BP Pulse Ox 98.6 F 97 16 154/64 H 99 05/23/18 17:38 05/23/18 17:38 05/23/18 17:38 05/23/18 17:38 05/23/18 17:38 Oxygen Delivery Method Room Air Weight: 220 lb Body Mass Index (BMI) 43.0 Laboratory Tests Past 24 Hrs Assessment/Plan All Active Problems Anemia (Acute) 1. Acute microcytic anemia-hemoglobin 4.5. Stool negative for occult blood. 2 units PRBC. Lasix 40 mg IV x1 in between PRBC. Iron studies, B12, folate pending. Repeat H AND H following transfusion and again in a.m. Check LDH and retic panel given profound acute anemia/new dx. CT of abdomen showed small bilateral pleural effusions, moderate hiatal hernia, solitary gallstone, marked atrophy of the right kidney, sigmoid diverticulosis, mild degree of non-complicated sigmoid diverticulitis. 2. Suspected new onset diastolic CHF-bilateral pleural effusions on CT of chest. Bilateral lower extremity edema. Check BNP. Obtain echo. IV Lasix 40 mg daily. Strict I AND O. Daily weight. 3. Bilateral pleural effusions-CT of chest shows small bilateral pleural effusions with underlying infiltration and/or atelectasis. Suspect secondary to #2. Afebrile, no leukocytosis, denies cough. 4. Hypertension, mild-systolic 140-150. Continue to monitor. Add antihypertensive if remains elevated. 5. Obesity-encourage diet lifestyle modifications. Nutrition consult. DVT prophylaxis-SCDs, hold pharmacologic prophylaxis due to anemia. This patient was seen by SHAQUILLE Kraft under the supervision of Dr. Tan. <Martin Tan F - Last Filed: 05/23/18 21:21> History of Present Illness The patient is a 68 year old F [] Past Medical History Allergies No Known Allergies Allergy (Verified 05/23/18 15:03) - Physical Exam Vital Signs Temp Pulse Resp BP Pulse Ox 99.3 F H 93 18 128/58 H 97 05/23/18 20:35 05/23/18 20:35 05/23/18 20:35 05/23/18 20:35 05/23/18 20:35 Oxygen Delivery Method Room Air Weight: 221 lb 1.978 oz Body Mass Index (BMI) 43.2 Intake and Output for Last 24 Hours Intake Total 0 / 0 Balance 0 / 0 Microbiology Past 72 Hours 05/23/18 16:40 Stool Occult Blood (AXEL) - Final Stool Laboratory Tests Past 24 Hrs Immature Plt Fraction 4.5 Retic Count 2.18 H Immature Retic Fraction 15.80 Retic Hgb Equivalent 12.6 L Immature Plt Fraction Retic Count Immature Retic Fraction Retic Hgb Equivalent Iron 8 L TIBC 512 H Code Visit Addendum: Dr. Tan I personally examined the patient and reviewed the chart. I agree with the above. 68-year-old female with no significant past medical history because she does not go to the doctor. She presented today for with dyspnea on exertion and she went to a primary care doctor's office for evaluation where labs were performed as well as imaging. She had a CTA done that showed bilateral small pleural effusions without any pulmonary emboli, and she had a CT abdomen pelvis that did not show any significant pathology either. Her CBC however demonstrated a significant anemia of 4.5 hemoglobin. Iron studies demonstrate an iron deficiency anemia. Fecal occult blood stool is negative. She denies any abdominal pain to think of an upper GI source. Given the pleural effusions edema in her lower extremities and a cardiac murmur that is likely a flow murmur, will proceed with an echo tomorrow and Lasix today between her units of blood. After her blood transfusions she may also require a dose of Venofer and to be initiated on p.o. iron. Of note she has never had a colonoscopy and given how slow this anemia has been, I feel she could probably obtain a colonoscopy as an outpatient. Inpatient E AND M: [id number] Init Hosp L3 05/23/180 <Electronically signed by Mariella CORBIN> Date Mariella CORBIN 05/23/182120<Electronically signed by Martin Tan MD> Cosigner Signature: Date (if applicable) Martin Tan MD CC: SHAQUILLE Carrasco; Abida Saleem DO; Martin Tan MD Signed IRON BINDING Collected: 05/23/2018 Status: F Source: SHANNA CAPACITY,TOTAL 5:06 PM [facility] REPOSITORY TYPE CODE TESTS RESULT OUT OF RANGE REFERENCE UNITS LAB L503.6075 250-450 ug/dL High TIBC 512 Performed By: #### L503.6075, L503.6150, L503.6550, L506.0250 #### [facility] [address] [place], [place], [id number] IRON Collected: 05/23/2018 Status: F Source: SHANNA 5:06 PM [facility] REPOSITORY TYPE CODE TESTS RESULT OUT OF RANGE REFERENCE UNITS LAB L503.6150 50-170 ug/dL Low IRON 8 Performed By: #### L503.6075, L503.6150, L503.6550, L506.0250 #### [facility] [address] [place], [place], [id number] FERRITIN Collected: 05/23/2018 Status: F Source: SHANNA 5:06 PM [facility] REPOSITORY TYPE CODE TESTS RESULT OUT OF REFERENCE UNITS RANGE LAB L503.6550 8-252 ng/mL Low FERRITIN 4 Performed By: #### L503.6075, L503.6150, L503.6550, L506.0250 #### [facility] [address] [place], [place], [address] FOLATES, (FOLIC ACID) Collected: 05/23/2018 Status: F Source: SHANNA 5:06 PM [facility] REPOSITORY TYPE CODE TESTS RESULT OUT OF RANGE REFERENCE UNITS LAB L506.0250 3.1-55.4 ng/mL Normal FOLATES 51.90 Performed By: #### L503.6075, L503.6150, L503.6550, L506.0250 #### [facility] [address] [facility] [place], [address] TYPE AND SCREEN Collected: 05/23/2018 Status: F Source: [place] 5:[place] [facility] Order Comment: CMV NEG? N Number of units to transfuse: 2 Is pt's Hgb is </= to 7.0 mg/dl or Hct </= 21%? Y Reason for Ordering Blood: Chronic Are the blood/blood products to be transfused? Y Is the patient having/had surgery? N Give When? When Ready Irradiated? N Leukodepleted? Y TYPE CODE TESTS RESULT OUT OF RANGE REFERENCE UNITS LAB B10.0800 A Normal BLOOD TYPE GEL POSITIVE LAB B100.4000 Normal Antibody NEGATIVE Screen Performed By: #### B101.7450 #### [facility] [address] [facility] [place], [place], [address] LDH Collected: 05/23/2018 Status: F Source: [place] 5:06 [facility] [place] TYPE CODE TESTS RESULT OUT OF RANGE REFERENCE UNITS LAB L504.2610 84-246 U/L Normal LDH 227 Performed By: #### L504.2610 #### [facility] [address] [facility], [address] RC Collected: 05/23/2018 Status: F Source: [place] 5:06 PM [facility] REPOSITORY TYPE CODE TESTS RESULT OUT OF REFERENCE UNITS RANGE LAB U100.0000 [id number] TRANSFUSED PRODUCT: T AND S with Crossmatch, Red Cells COUNT: 2 Performed By: #### U100.0000 #### [facility] - refer to report for specific site RC Collected: 05/23/2018 Status: F Source: [place] 5:06 PM [facility] REPOSITORY TYPE CODE TESTS RESULT OUT OF REFERENCE UNITS RANGE LAB U100.0000 [id number] TRANSFUSED PRODUCT: T AND S with Crossmatch, Red Cells COUNT: 2 Performed By: #### U100.0000 #### Non-[facility] - refer to report for specific site VITAMIN B12 Collected: 05/23/2018 Status: F Source: [place] 5:06 PM [facility] REPOSITORY TYPE CODE TESTS RESULT OUT OF RANGE REFERENCE UNITS LAB L503.0105 211-911 pg/mL Normal Vitamin B12 848 Performed By: #### L503.0105 #### [facility] [address] [place], [address] Observed: 05/23/2018 Status: F Source: [place] STOOL OCCULT BLOOD 4:40 PM [facility] IFOB REPOSITORY Order Date: 05/23/18 Has pt arrived? Y STOB iFOB Occult Blood Negative Performed By: #### M100.7900 #### [facility] [address] [place], [address] CBC W/DIFF, AUTOMATED Collected: 05/23/2018 Status: C Source: [place] 1:08 PM [facility] REPOSITORY TYPE CODE TESTS RESULT OUT OF RANGE REFERENCE UNITS LAB L100.1000 4.4-11.0 K/mm3 Normal WBC 6.4 LAB L100.1200 4.2-5.4 M/mm3 Low RBC 2.50 LAB L100.1300 12.0-15.0 g/dl Low alert HGB 4.5 Result Comment: CRITICAL VALUE VERIFIED. CALLED TO TIERA SEQUEIRA AT [facility] 05/23/18 Farzana7 Mariella Garner. RESULTS READ BACK BY SAME. LAB L100.1400 37-47 % Low HCT 17.2 LAB L100.1500 81-99 fL Low MCV 68.8 LAB L100.1600 27.0-32.0 pg Low MCH 18.0 LAB L100.1700 32-36 g/gl Low MCHC 26.2 LAB L100.1810 11.6-14.6 % High RDW CV 16.0 LAB L100.1820 35.1-43.9 fl Normal RDW SD 37.8 LAB L100.1900 150-450 K/mm3 Normal PLT 355 LAB L100.2000 6.2-12.0 fl Normal MPV 10.3 LAB L100.2100 47-70 % High NEUT% 73.8 LAB L100.2200 19-41 % Low LY% 18.8 LAB L100.2300 0-10 % Normal MONO% 6.4 LAB L100.2400 0-5 % Normal EO% 0.5 LAB L100.2500 0-1 % Normal BASO% 0.3 LAB L100.2550 0.0-0.9 % Normal IM GRAN % 0.200 Result Comment: IG% - Immature Granulocytes (promyelocytes, myelocytes and metamyelocytes) > 1% indicates that a LEFT SHIFT is Present. LAB L100.2620 2.0-7.7 X10 3/uL Absolute Neut Normal 4.7 LAB L100.2720 0.83-4.51 X10 3/ul Absolute Lymph Normal 1.20 LAB L100.5500 ADEQ PLT EST Normal ADEQUATE LAB L100.7300 ANISO Normal RARE LAB L100.7500 POLYCHROMASIA Normal RARE LAB L100.7600 HYPOCHROMASIA Normal 3+ LAB L100.7700 MICROCYTES Normal 2+ LAB L100.9900 PATH REV Normal Reviewed Result Comment: Severe Microcytic anemia. Clinical correlation necessary. Anthony Knott M.D. 05/24/18 AMENDED REPORT 05/24/18 1531 PATH REV previously reported as: Rocio covarrubias Performed By: #### L100.0100, L500.4050, L501.2400, L501.2450, L501.6710, L101.9900 #### [facility] [address] [place], [address] COMPREHENSIVE METABOLIC Collected: 05/23/2018 Status: F Source: [facility] 1:08 PM [facility] REPOSITORY TYPE CODE TESTS RESULT OUT OF RANGE REFERENCE UNITS LAB L501.0100 74-106 mg/dL Normal GLU 98 Result Comment: Please note revised GLUCOSE reference range effective 2017. LAB L501.1000 7-18 mg/dL Normal BUN 14 LAB L501.1100 0.55-1.02 mg/dL Normal CREAT,SERUM 1.00 Result Comment: The validity of the calculated GFR AND GFRAA in patients over 70 years has not been determined. Clinical correlation is essential. LAB L501.1110 >60 mL/min Low EST GFR 59 Result Comment: Non- GFR Calc LAB L501.1115 >60 mL/min Normal EST GFR - AA 72 Result Comment: GFR Calc LAB L501.1300 10-20 RATIO Normal BUN/CRE 14.0 LAB L501.1500 6.4-8.2 g/dL T Normal PROT 6.6 LAB L501.1800 3.2-5.0 g/dL Normal ALB 3.6 LAB L501.1950 2.2-4.2 g/dL Normal GLOB 3.0 LAB L501.2000 0.9-2.4 RATIO Normal A/G 1.2 LAB L501.2200 8.5-10.1 mg/dL CA Normal 8.7 LAB L501.4100 15-37 U/L Low AST 12 LAB L501.4305 45-117 U/L Normal ALK P 76 LAB L501.4405 13-56 U/L Normal ALT 20 LAB L501.4600 0.20-1.00 mg/dL T Normal BILI 0.40 LAB L501.5300 136-145 mmol/L NA Normal 144 LAB L501.5600 3.5-5.1 mmol/L K Normal 4.6 LAB L501.5900 98-107 mmol/L High CL 109 LAB L501.6100 21.0-32.0 mmol/L Normal CO2 25.0 LAB L501.6200 5-15 Normal GAP 10 Performed By: #### L100.0100, L500.4050, L501.2400, L501.2450, L501.6710, L101.9900 #### [facility] [address] [place], [address] AMYLASE Collected: 05/23/2018 Status: F Source: [place] 1:08 PM [facility] REPOSITORY TYPE CODE TESTS RESULT OUT OF RANGE REFERENCE UNITS LAB L501.2400 25-115 U/L Normal AGUSTIN 50 Performed By: #### L100.0100, L500.4050, L501.2400, L501.2450, L501.6710, L101.9900 #### [facility] [address] [place], [place], [address] LIPASE Collected: 05/23/2018 Status: F Source: [place] 1:08 PM [facility] REPOSITORY TYPE CODE TESTS RESULT OUT OF RANGE REFERENCE UNITS LAB L501.2450 73-393 U/L Normal LIPASE 115 Performed By: #### L100.0100, L500.4050, L501.2400, L501.2450, L501.6710, L101.9900 #### [facility] [address] [facility] [place], [place], [address] CRP Collected: 05/23/2018 Status: F Source: [place] 1:08 PM [facility] REPOSITORY TYPE CODE TESTS RESULT OUT OF RANGE REFERENCE UNITS LAB L501.6710 0.0-3.0 mg/L High 7.09 C-REACTIVE PROT Result Comment: C-Reactive Protein (CRP) provides useful information for the diagnosis, therapy and monitoring of inflammatory processes and associated diseases. For the evaluation of Relative Risk for Cardiovascular Disease, a High Sensitivity CRP (HSCRP) should be ordered. Performed By: #### L100.0100, L500.4050, L501.2400, L501.2450, L501.6710, L101.9900 #### [facility] [address] [facility] [place], [place], [id number] ERYTHROCYTE SED RATE Collected: 05/23/2018 Status: F Source: [place] 1:08 PM [facility] REPOSITORY TYPE CODE TESTS RESULT OUT OF RANGE REFERENCE UNITS LAB L102.0000 0-30 mm/hr Normal SED RATE 7 Performed By: #### L100.0100, L500.4050, L501.2400, L501.2450, L501.6710, L101.9900 #### [facility] [address] [facility] [place], [place], [address] RETIC PANEL Collected: 05/23/2018 Status: F Source: [place] 1:08 PM [facility] REPOSITORY TYPE CODE TESTS RESULT OUT OF RANGE REFERENCE UNITS LAB L101.0000 0.5-1.5 % High RETIC 2.18 LAB L101.0060 3.00-15.90 % IM Normal RET FRACTION 15.80 LAB L101.0090 30-35 pg Low RET-HE 12.6 LAB L101.0110 1.0-7.9 % Normal IPF 4.5 Result Comment: Low PLT + Low IPF suggest a bone marrow production disorder Low PLT + high IPF suggests peripheral destruction (e.g.ITP, TTP, HIT, DIC, autoimmune) or bone marrow recovery Trending of serial IPF measurements is recommended when evaluating for bone marrow respones Value above normal range indicates an increase in RBC cellular response from bone marrow. Performed By: #### L100.9950 #### [facility] [address] [place], [address] BNP,B-TYPE NATRIURETIC Collected: 05/23/2018 Status: F Source: [place] PEPTIDE 1:08 PM [facility] REPOSITORY Order Comment: Comments: add to labs from earlier today if possible TYPE CODE TESTS RESULT OUT OF RANGE REFERENCE UNITS LAB L503.6620 0-100 pg/mL High B-TYPE 113.4 MOSES PEP Performed By: #### L503.6620 #### [facility] [address] [facility] [place], [address] ABDOMEN/PELVIS WITH Observed: 05/23/2018 Status: F Source: [place] CONTRAST 1:00 PM [facility] REPOSITORY [facility] Imaging Services [address] [place] [address] Abdomen/Pelvis WITH Contrast MR#: [id number] Acct: [id number] Name: ATIF MALONEY Rep #: [id number] : 1950 F 68 From: Jaden Rios MD PCP: Abida Saleem DO Status: REG CLI Study: Abdomen/Pelvis WITH Contrast Date of Exam: 05/23/18 Exam# [id number] Ordering Dr: Abida Saleem DO STUDY: CT ABDOMEN AND PELVIS [...] 100mL ml of Isovue 300 contrast was administered. Sagittal and coronal images were reconstructed. Individualized dose optimization techniques were used for this CT. COMPARISON: None. FINDINGS: Small bilateral pleural effusions with bibasilar atelectasis and/or infiltrates. The visualized portions of the heart are within normal limits. Normal liver. There is a solitary gallstone. There is a 7.6 mm rounded hypodensity in the medial aspect of the spleen. This is not a typical cyst. Normal pancreas. Normal bilateral adrenal glands. Marked atrophy of the right kidney. Normal left kidney. Moderate sized renal hernia. Normal small intestine. There is diverticulosis, with thickening of the colon wall, and pericolonic inflammation changes consistent with acute diverticulitis. This is suggestive of mild degree of diverticulitis. There is non- visualization of the appendix. There is scattered atherosclerotic calcification of the abdominal aorta, without a demonstrated aneurysm. Normal inferior vena cava. There is borderline retroperitoneal lymphadenopathy with enlarged nodes no greater than 10mm in the short axis diameter. Normal urinary bladder. There is absence of the uterus consistent with a prior hysterectomy. Normal abdominal wall. There are degenerative changes of the visualized lumbar spine. CT/Abdomen/Pelvis WITH Contrast IMPRESSION: Small bilateral pleural effusions with bibasilar infiltration and/or atelectasis. Moderate sized hiatal hernia. Solitary gallstone. Marked atrophy of the right kidney. Sigmoid diverticulosis and findings suggest a mild degree of noncomplicated sigmoid diverticulitis. Electronically Signed: Jaden Rios MD at 15:10 EDT Tel [phone], Service support , CC: Abida Saleem DO Technical Assistant: Signed CTA CHEST W/WO Observed: 05/23/2018 Status: F Source: [place] CONTRAST 1:00 PM [facility] REPOSITORY [facility] Imaging Services [address] [place] [address] CTA Chest W/WO Contrast MR#: [id number] Acct: [id number] Name: ATIF MALONEY Rep #: [id number] : 1950 F 68 From: Jaden Rios MD PCP: Harper DO,Abida Status: REG CLI Study: CTA Chest W/WO Contrast Date of Exam: 05/23/18 Exam# [id number] Ordering Dr: Abida Saleem DO STUDY: CTA CHEST REASON FOR EXAM: Female, 68 years old. Jaundice and shortness of breath. Decreased hemoglobin. RADIATION DOSAGE (If Supplied By Facility): CTDIvol = ( 17.98 ) mGy, DLP = ( 1944.26 ) mGycm TECHNIQUE: The examination was performed with the [...] demonstrated pulmonary embolism. Normal thoracic aorta and visualized great vessels. There is no demonstrated aortic dissection. Normal heart and pericardium. Normal mediastinum. Normal hilar regions. Normal visualized trachea and bronchi. The lungs are well expanded. Small bilateral pleural effusions with bibasilar infiltration and/or atelectasis. Normal chest wall structures. There are degenerative changes of thoracic spine. Marked atrophy of the right kidney. Gallstones. Moderate- sized hiatal hernia. CT/CTA Chest W/WO Contrast IMPRESSION: Small bilateral pleural effusions with underlying infiltration and/or atelectasis. Electronically Signed: Jaden Rios MD at 15:12 EDT Tel [phone], Service support , CC: Abida Saleem DO Technical Assistant: Signed ALLERGIES ALLERGIES DATE TYPE / CODE NAME / CODE REACTION SEVERITY SOURCE 05/23/2018 Drug No Known Unknown [place] [facility] Allergy/416 Allergies/Q63547 Hospital 087136(SNOM 0388(RXNORM) Repository ED CT) Drug NO KNOWN [facility] Class/43204 ALLERGIES Main [place] 1003(SNOMED Repository CT) ENCOUNTERS ENCOUNTERS ADMIT/DISCHARGE ACCOUNT ADMITTING ENCOUNTER LOCATION SOURCE NUMBER CLASS 06/28/2018 [id number] Ambulatory Building:[facility] [place] Practices Repository 06/26/2018 [id number] Ambulatory [facility] ing:MTLAB Repository 06/22/2018/06/23/20 [id number] Ambulatory [address] Repository 06/13/2018/06/13/20 [id number] HUBER, Ambulatory [address] Repository 06/01/2018/06/07/20 [id number] Ambulatory [address] Repository 05/30/2018 [id number] Ambulatory [facility] ing:MTLAB Repository 05/23/2018/05/25/20 [id number] Dominick, Inpatient [place] [address] [address] [facility] ing:PCURoom: Repository [id number]: 1 05/23/2018 [id number] Dominick, Ambulatory BMSBuilding:Vito Stout [place].[facility] Repository 05/23/2018 [id number] Joetsonis, Ambulatory BMSBuilding:Vito Stout [place].[facility] Repository 05/23/2018 [id number] Benonis, Ambulatory BMSBuilding:[facility] Repository 05/23/2018/05/25/20 [id number] Ambulatory BMSBuilding:W [address] Repository 05/23/2018 [id number] Ambulatory [facility] ing:CT Repository FUNCTIONAL STATUS FUNCTIONAL STATUS No Functional Status Records FoundEQUIPMENT EQUIPMENT No Equipment Records FoundPAYERS PAYERS ENCOUNTER GUARANTOR PAYER SUBSCRIBER SOURCE 06/28/2018 Atif S Primary Atif S OHIP Practices Asif: Insurance:MedicarePol Asif: Repository [id number] icy Number: [id number] [facility] [address] Date: [place], [place] [id number] [place], [place] [address]Fsc: [phone]) Name:PETROPHYSICIST [address] [address]Nuy: () [id number], [place] [phone] () [address]DL: 06/26/2018 YECENIA Primary NOT GIVENUNK Shanna [id number] Insurance:SELF PAY [facility] [place] Number: Effective Repository [id number]: ([phone]) Date:2018-06-26 [phone] () 05/30/2018 YECENIA Primary NOT GIVENUNK Shanna [id number] Insurance:SELF PAY [facility] [place] Number: Effective Repository [phone]: ([phone]) Date:2018-05-30 [phone] () 05/23/2018 YECENIA Primary ATIF S Shanna [id number] Insurance:MEDICARE A RAMANASTACIADOB: [facility] Number: [id number] [id number] Repository [address]Ras: ([phone]) Date:2018-05-23 [phone] () 05/23/2018 Secondary NOT GIVENUNK Shanna Insurance:SELF PAY [facility] Number: Effective Repository Date:2018-05-23 05/23/2018 YECENIA Primary NOT GIVENUNK [place] [id number] Insurance:SELF PAY [facility] [place] Number: Effective Repository [phone]: ([phone]) Date:2018-05-23 [phone] () 05/23/2018 YECENIA Primary NOT GIVENUNK Shanna [id number] Insurance:SELF [place]Y [facility] [place] Number: Effective Repository [phone]: ([phone]) Date:2018-05-23 [phone] () 05/23/2018 YECENIA Primary NOT GIVENUNK [place] [id number] Insurance:SELF PAY [facility] [place] Number: Effective Repository [phone]: ([phone]) Date:2018-05-23 [phone] () 05/23/2018 YECENIA Primary NOT GIVENUNK [place] [id number] Insurance:SELF PAY [facility] [place] Number: Effective Repository [phone]: [phone]) Date:2018-05-23 [phone] () 05/23/2018 YECENIA Primary Insurance:[facility] ATIF Pageoster [id number] PACKAGE PLANPoly RAMSEYERDOB: Community [facility] Number: Effective [id number] Date:2018-05-23 Repository [address]Wdb: () 05/23/2018 Secondary NOT GIVENUNK Shanna Insurance:SELF PAY [facility]: Effective Repository Date:2018-05-23 SOCIAL HISTORY SOCIAL HISTORY No Social History Records FoundFAMILY HISTORY FAMILY HISTORY No Family History Records FoundADVANCE DIRECTIVES ADVANCE DIRECTIVES No Advanced Directives Records FoundINFORMATION SOURCE INFORMATION SOURCE DATE CREATED AUTHOR AUTHOR'S ORGANIZATION 07/12/2018 [place]
== END ==
PROVIDERS: Family Provider Internal Medicine; PCP Internal Medicine; Referring Provider Internal Medicine Pulmonary Disease; Visit Provider Internal Medicine Pulmonary Disease
DX: I27.20 Pulmonary hypertension, unspecified (principal)
CPT/HCPCS: 36415; 80076

== ENCOUNTER → 2018-08-22 11:09 | Outpatient (CLI) | payer SELFPAY ==
[2018-05-23 17:56] VITALS: BMI 43.2
--- NOTE | 2018-08-22 11:17 | RAD_ITS ---
STUDY: X-RAY CHEST, REASON FOR EXAM: Female, 68 years old. Shortness of breath, possible effusion TECHNIQUE: Right lateral decubitus COMPARISON: None. FINDINGS: Limited right lateral decubitus film does not show evidence of an underlying pleural effusion. Both lungs are normally expanded and free of superimposed process. Degenerative bony changes noted in the thoracic spine with a rotatory scoliosis. RAD/Special CXR (Obl/Decub/A/L) IMPRESSION: No underlying effusion. Electronically Signed: Jude Altamirano MD at 17:05 EST , Service support ,
--- NOTE | 2018-08-22 11:17 | RAD_ITS ---
STUDY: X-RAY CHEST REASON FOR EXAM: Female, 68 years old. Chest pain and cough TECHNIQUE: PA and lateral views of the chest. COMPARISON: 05/25/2018 FINDINGS: The lungs are clear and expanded. There is no demonstrated pleural abnormality. Normal size heart. Normal mediastinum and pilar. Normal visualized pulmonary arteries. Normal visualized aortic arch and descending thoracic aorta. Normal visualized thoracic spine. Normal visualized ribs, clavicles, and shoulders. There is no demonstrated abnormality of the visualized soft tissue structures of the upper abdomen. RAD/Chest PA and Lateral IMPRESSION: No acute pulmonary process Electronically Signed: Jude Altamirano MD at 12:21 EST , Service support ,
--- NOTE | 2018-08-22 11:17 | RAD_ITS ---
STUDY: X-RAY CHEST REASON FOR EXAM: Female, 68 years old. Shortness of breath, possible pleural effusion TECHNIQUE: Left lateral decubitus COMPARISON: None. FINDINGS: Limited left lateral decubitus view of the chest does not show evidence of an underlying pleural effusion or infiltrate. Both lung ibanez are expanded normally. Stable degenerative changes in the thoracic spine with rotatory scoliosis. RAD/Special CXR (Obl/Decub/A/L) IMPRESSION: No underlying effusion. Electronically Signed: Jude Altamirano MD at 17:06 EST , Service support ,
== END ==
PROVIDERS: Family Provider Internal Medicine; PCP Internal Medicine; Referring Provider Internal Medicine Pulmonary Disease; Visit Provider Internal Medicine Pulmonary Disease
DX: J90 Pleural effusion, not elsewhere classified (principal)
CPT/HCPCS: 71046

== ENCOUNTER → 2019-02-26 12:42 | Outpatient (CLI) | payer MEDICARE, SELFPAY ==
--- NOTE | 2019-02-26 12:49 | ECHOD_ITS ---
Reason For Study: PHTN Procedure This was a 2D Doppler, Color Flow transthoracic echocardiogram. The exam was of adequate technical quality. Exam performed in department. Left Ventricle Normal LV size. Left ventricular systolic function is normal. The estimated ejection fraction is 70 %. Diastolic function is indeterminate. No regional wall motion abnormalities noted. Right Ventricle Normal RV size. Normal systolic function. Atria The left atrium is mildly enlarged. Normal right atrium. No doppler evidence for ASD. Mitral Valve There is no mitral annular calcification. Normal mitral valve. Mild (1+) eccentric mitral valve insufficiency. Tricuspid Valve Normal tricuspid valve. Mild tricuspid valve insufficiency. Right ventricular systolic pressure estimated to be 35 mmHg. Aortic Valve Trisinus/trileaflet aortic valve. Normal aortic valve. Trivial aortic valve insufficiency. Pulmonic Valve The pulmonic valve is not well visualized. Trivial pulmonic valve insufficiency. Great Vessels Normal sized aortic root. Pericardium/Pleural No pericardial effusion. MMode/2D Measurements & Calculations LVIDd: 3.9 cm IVSd: 1.0 cm Ao root diam: 2.8 cm LVIDs: 2.4 cm LVPWd: 1.1 cm RVDd: 3.2 cm FS: 39.8 % LAV(MOD-bp): 29.1 ml LVAd ap4: 23.0 cm2 SV(MOD-sp4): 44.6 ml LAV(MOD-bp) Indexed: 15.4 ml/m2 EDV(MOD-sp4): 65.6 ml LAV(MOD-sp2): 19.7 ml EDV(sp4-el): 67.7 ml LAV(MOD-sp4): 42.5 ml LVAs ap4: 12.0 cm2 ESV(MOD-sp4): 20.9 ml ESV(sp4-el): 22.1 ml EF(MOD-sp4): 68.0 % EF(sp4-el): 67.3 % SV(sp4-el): 45.6 ml LA A4 area: 17.4 cm2 LA dimension(2D): 2.7 cm RA A4 area: 12.1 cm2 Doppler Measurements & Calculations MV E max hola: 77.6 cm/sec Lat Peak E' Hola: 7.4 cm/sec Med Peak E' Hola: 5.0 cm/sec MV A max hola: 112.2 cm/sec E/E' lat: 10.6 E/E' med: 15.4 MV E/A: 0.69 Ao V2 max: 185.4 cm/sec AI max hola: 313.6 cm/sec LV V1 max: 121.3 cm/sec Ao max P.7 mmHg AI max P.3 mmHg LV V1 max P.9 mmHg Ao V2 mean: 119.7 cm/sec Ao mean P.6 mmHg AI dec slope: 201.7 cm/sec2 Ao V2 VTI: 33.7 cm AI P1/2t: 455.4 msec PA V2 max: 115.5 cm/sec TR max hola: 261.4 cm/sec TR max P.3 mmHg Interpretation Summary Left ventricular systolic function is normal. The estimated ejection fraction is 70 %. The left atrium is mildly enlarged. Mild (1+) eccentric mitral valve insufficiency. Mild tricuspid valve insufficiency. Trivial aortic valve insufficiency. Trivial pulmonic valve insufficiency. Right ventricular systolic pressure estimated to be 35 mmHg. Diastolic function is indeterminate. Ordering Physician: Enrique Herman Referring Physician: Abida Saleem Performed By: Basilia East, RDCS, RVT
== END ==
PROVIDERS: Family Provider Internal Medicine; PCP Internal Medicine; Referring Provider Internal Medicine Pulmonary Disease; Visit Provider Internal Medicine Pulmonary Disease
DX: I27.20 Pulmonary hypertension, unspecified (principal)
CPT/HCPCS: 93306

== ENCOUNTER → 2019-05-16 12:31 | Outpatient (CLI) | payer MEDICARE, SELFPAY ==
[2019-05-16 08:24] VITALS: BMI 40.6
[2019-05-16 14:02] LABS: BNP,B-Type NATRIURETIC PEPTIDE 26.3 pg/mL (0-100)
== END ==
PROVIDERS: Family Provider Internal Medicine; PCP Internal Medicine; Referring Provider Internal Medicine Cardiovascular Disease; Visit Provider Internal Medicine Cardiovascular Disease
DX: R06.02 Shortness of breath (principal)
CPT/HCPCS: 36415; 83880

== ENCOUNTER → 2019-06-18 06:36 | Outpatient (CLI) | payer MEDICARE, SELFPAY ==
[2019-05-16 08:24] VITALS: BMI 40.6
--- NOTE | 2019-06-18 06:38 | ECHOL_ITS ---
Left Ventricle Normal LV size. Left ventricular systolic function is normal. No regional wall motion abnormalities noted. Right Ventricle Normal RV size. Normal systolic function. Atria Normal left atrium. Normal right atrium. Mitral Valve Normal mitral valve. Tricuspid Valve Normal tricuspid valve. Mild (1+) tricuspid valve insufficiency. Aortic Valve Normal aortic valve. Trisinus/trileaflet aortic valve. Pulmonic Valve Normal pulmonic valve. Great Vessels Normal aortic root. The pulmonary artery is normal size. Normal inferior vena cava. Pericardium/Pleural No pericardial effusion. MMode/2D Measurements & Calculations LVIDd: 4.1 cm IVSd: 0.96 cm LAV(MOD-sp4): 57.4 ml LVIDs: 2.8 cm LVPWd: 1.0 cm FS: 31.5 % LVAd ap4: 27.7 cm2 SV(MOD-sp4): 45.2 ml SV(sp4-el): 47.9 ml EDV(MOD-sp4): 77.8 ml EDV(sp4-el): 80.4 ml LVAs ap4: 15.5 cm2 ESV(MOD-sp4): 32.6 ml ESV(sp4-el): 32.5 ml EF(MOD-sp4): 58.1 % EF(sp4-el): 59.6 % LA A4 area: 19.9 cm2 RA A4 area: 12.0 cm2 Doppler Measurements & Calculations TR max brendon: 226.6 cm/sec TR max P.5 mmHg Interpretation Summary Normal LV size. Left ventricular systolic function is normal. No regional wall motion abnormalities noted. Mild (1+) tricuspid valve insufficiency. Ordering Physician: Rashard Pastor Referring Physician: Rashard Pastor
--- NOTE | 2019-06-18 09:58 | STRESSREP ---
Stress Test Report Exercise myocardial perfusion stress test. 69-year-old lady with a history of shortness of breath. Medications iron, hydrochlorothiazide, losartan. Stress protocol: Resting EKG demonstrates normal sinus rhythm with a rate of 73 bpm normal intervals are noted resting blood pressures 128/78 mmHg. The patient exercised according to regular Cruzito protocol for total duration of 3 minutes the maximum heart rate attained was 164 bpm which was 107% of maximum predicted heart rate the maximum workload was 4.6 metabolic equivalents. Patient maintained sinus rhythm throughout the recording. At rest there were nonspecific ST-T wave changes noted peak infusion nonspecific ST-T wave changes were noted. Resting blood pressures 128/78 final blood pressure was 136/76. The peak blood pressure 174/74. Myocardial perfusion protocol. 11.0 mCi of technetium 99m sestamibi was injected at rest. Patient exercised according to regular Cruzito protocol for total duration of 3 minutes at peak exercise 36.0 mCi of technetium 99m sestamibi was injected stress images were obtained stress and rest images were reconstructed and compared in the short axis vertical and horizontal long axis. Gated images were also obtained Perfusion SPECT analysis: Review of the stress images demonstrate normal uptake of tracer noted in all rest myocardium the resting images similar demonstrate normal uptake of tracer noted in all rest myocardium. No areas of reversibility are noted suggest ischemia no previous infarct is noted. Gated SPECT analysis: The gated ejection fraction 79%. Conclusion: Normal exercise myocardial perfusion stress test at a low workload. The low workload may affect sensitivity for detection of ischemia. Preserved ejection fraction
== END ==
PROVIDERS: Family Provider Internal Medicine; PCP Internal Medicine; Referring Provider Internal Medicine Cardiovascular Disease; Visit Provider Internal Medicine Cardiovascular Disease
DX: R06.02 Shortness of breath (principal); R06.00 Dyspnea, unspecified
CPT/HCPCS: 78452; 93017; 93308; A9500; A4216

== ENCOUNTER → 2019-07-17 09:17 | Outpatient (CLI) | payer MEDICARE, SELFPAY ==
[2019-05-16 08:24] VITALS: BMI 40.6
[2019-06-20 08:19] VITALS: BMI 40.6
--- NOTE | 2019-07-17 09:19 | BI_ITS ---
MAMMOGRAPHY - BILATERAL SCREENING 3-D TOMOSYNTHESIS REASON FOR EXAM: Female, 69 years old. BILAT SCREENING - FAM HX OF SISTER @ AGE 67 - NO PREV SURG''S - PT HAS LOST 30# SINCE LAST MAMM OF 2011 PERTINENT HISTORY: No significant family history. TECHNIQUE: 2-D mammograms and 3-D Tomosynthesis of the breast (s) were performed. CAD was performed. COMPARISON: May 22, 2012. FINDINGS: The breast composition is composed of scattered fibroglandular density. Scattered benign calcifications are seen. No dense spiculated masses or suspicious microcalcifications are identified. No architectural distortion is identified. There is no skin thickening or retraction. There are now multiple, scattered typically benign-appearing calcifications. There is no definite cluster or region of pleomorphic microcalcification. There is a stable, subcentimeter, well-circumscribed nodule within the mid to deep left breast. There has been no significant change since the prior study. BI/SCREEN MAMM (CAD) W/AMADOR BILAT IMPRESSION: No mammographic signs of malignancy. Routine yearly mammograms recommended. ASSESSMENT CATEGORY: BIRADS Category 2: Benign. A letter regarding these results will be sent to the patient by the facility within 30 days. FOLLOW UP RECOMMENDATION: Yearly follow up mammogram recommended. (A) Approximately 10% of breast cancers are not detected by mammography. A normal mammogram should not delay biopsy of a clinically suspicious abnormality. Electronically Signed: Josh Simpson MD at 13:24 EST , Service support ,
--- NOTE | 2019-07-17 09:22 | BD_ITS ---
STUDY: DUAL ENERGY X-RAY ABSORPTIOMETRY / DXA REASON FOR EXAM: Female, 69 years old. TRANSVERSE ABDOMINAL MUSCLE NURSE-SURGICAL EARLY AT 42 YRS OLD -- TAKES HCTZ -- TAKES MULTIVITAMIN -- DOES MODERATE AMOUNT OF EXERCISE -- LIN OF 2.75 INCHES TECHNIQUE: Bone Mineral Density (BMD) measurements of lumbar spine and bilateral hips were obtained. COMPARISON: None. FINDINGS: Lumbar Spine (L1-L4): g/cm2 (1.605) / T-score (3.5) / Z-score (5.2) Findings are suggestive of normal bone density with a low fracture risk. Left Femur Total: g/cm2 (1.037) / T-score (0.2) / Z-score (1.5) Left Femoral Neck: g/cm2 (0.944) / T-score (-0.7) / Z-score (0.9) Right Femur Total: g/cm2 (1.120) / T-score (0.9) / Z-score (2.2) Right Femoral Neck: g/cm2 (1.065) / T-score (0.2) / Z-score (1.8) BD/Dexa Bone Density Study IMPRESSION: The patient is considered normal as outlined below according to World Bradly Organization (WHO) criteria with a low fracture risk. Reference Information: The T-score is the number of standard deviations above or below the standard which is normal for young adults at their peak bone mineral density. The World Health Organization (WHO) interprets the T-scores as follows: Above -1 Normal bone density Between -1 and -2.5 Osteopenia Equal to / or below -2.5 Osteoporosis As a practical clinical guideline, osteopenia may be graded as follows: Mild -1 through -1.5 Moderate -1.6 through -2.0 Severe -2.1 through -2.4 The Z-score is the number of standard deviations above or below age-matched controls. A Z-score of less than -1.5 would be considered abnormal. References: 1. NIH Osteoporosis and Related Bone Diseases http://www.osteo.org 2. International Society for Clinical Densitometry http://www.iscd.org 3. National Osteoporosis Foundation http://www.nof.org Electronically Signed: Jaden Rios, at 15:30 EST , Service support ,
== END ==
PROVIDERS: Family Provider Internal Medicine; PCP Internal Medicine; Referring Provider Internal Medicine; Visit Provider Internal Medicine
DX: Z12.31 Encounter for screening mammogram for malignant neoplasm of breast (principal); Z78.0 Asymptomatic menopausal state
CPT/HCPCS: 77063; 77067; 77080

== ENCOUNTER → 2021-05-08 08:35 | Outpatient (CLI) | payer MEDICARE, SELFPAY ==
--- NOTE | 2021-05-08 08:40 | CT_ITS ---
STUDY: CTA CHEST REASON FOR EXAM: Female, 70 years old. R/O PE COVID + RADIATION DOSAGE (If Supplied By Facility): CTDIvol = ( 10.75 ) mGy, DLP = ( 424.67 ) mGycm TECHNIQUE: The examination was performed with the intravenous administration of IV 100mL Isovue-370. Post-processing of the angiographic images was performed, with multiplanar reformation and 3D reconstruction. Individualized dose optimization techniques were used for this CT. COMPARISON: None. FINDINGS: Normal enhancement of the main pulmonary artery and right and left pulmonary arteries. Normal enhancement of the bilateral peripheral pulmonary arteries. There is no demonstrated pulmonary embolism. Normal thoracic aorta and visualized great vessels. There is no demonstrated aortic dissection. Normal heart and pericardium. Normal mediastinum. Normal hilar regions. Normal visualized trachea and bronchi. The lungs are well expanded. Mild patchy infiltrates seen in the anterior aspect of the lingular segment of the left upper lobe. Mild infiltrate is seen in the anterior aspect of the right temporal. Mild degree of the scattered atelectasis and/or early infiltrates at the lung bases. Normal pleura. Normal chest wall structures. There are degenerative changes of thoracic spine. Gallstones. Moderate-sized hiatal hernia. CT/CTA Chest W/WO Contrast IMPRESSION: No evidence of pulmonary embolism. Scattered bilateral pulmonary infiltrates as described. Electronically Signed: Jaden Rios MD at 9:30 EDT , Service support ,
[2021-05-08 09:05] LABS: CREATININE FINGERSTICK 1.4 mg/dL (0.55-1.02)
== END ==
PROVIDERS: PCP Internal Medicine; Referring Provider Internal Medicine; Visit Provider Internal Medicine
DX: U07.1 COVID-19 (principal)
CPT/HCPCS: 71275; Q9967

== ENCOUNTER → 2024-05-28 | Outpatient (CLI) | payer MEDICARE, SELFPAY ==
--- NOTE | 2024-05-28 12:41 | ECHOD_ITS ---
Reason For Study: Obstructive Sleep Apnea Procedure This was a 2D Doppler, Color Flow transthoracic echocardiogram. Exam performed in department. Left Ventricle Mild concentric left ventricular hypertrophy. Normal LV size. The left ventricular ejection fraction is 65 %. Stage 1 diastolic dysfunction. Right Ventricle Normal right ventricle. Atria The left and right atria are normal. Mitral Valve Mild (1+) mitral valve insufficiency. Tricuspid Valve Mild tricuspid valve insufficiency. Normal pulmonary artery pressure. Aortic Valve Trisinus/trileaflet aortic valve. Trivial aortic valve insufficiency. Pulmonic Valve The pulmonic valve is not well visualized. Great Vessels Normal sized aortic root. Pericardium/Pleural No pericardial effusion. MMode/2D Measurements & Calculations LVIDd: 3.8 cm IVSd: 1.1 cm Ao root diam: 3.2 cm LVIDs: 2.5 cm LVPWd: 1.3 cm RVDd: 3.7 cm FS: 33.6 % LAV(MOD-bp): 32.1 ml LVAd ap4: 26.5 cm2 SV(MOD-sp4): 43.3 ml LAV(MOD-bp) Indexed: 16.9 ml/m2 LVLd ap4: 7.6 cm SI(MOD-sp4): 22.8 ml/m2 LAV(MOD-sp2): 26.5 ml EDV(MOD-sp4): 77.3 ml LAV(MOD-sp4): 35.8 ml EDV(sp4-el): 79.0 ml LVAs ap4: 16.3 cm2 LVLs ap4: 6.5 cm ESV(MOD-sp4): 34.0 ml ESV(sp4-el): 34.8 ml EF(MOD-sp4): 56.0 % EF(sp4-el): 55.9 % SV(sp4-el): 44.1 ml Ao sinus diam: 2.5 cm LA A4 area: 15.6 cm2 LA dimension(2D): 2.8 cm RA A4 area: 10.2 cm2 TAPSE: 2.4 cm Time Measurements MV dec time: 0.17 sec Doppler Measurements & Calculations MV E max hola: 79.7 cm/sec Lat Peak E' Hola: 6.6 cm/sec Med Peak E' Hola: 9.0 cm/sec MV A max hola: 118.4 cm/sec E/E' lat: 12.0 E/E' med: 8.9 MV E/A: 0.67 MV V2 max: 116.3 cm/sec MV P1/2t max hola: 85.2 cm/sec Ao V2 max: 145.5 cm/sec MV max P.4 mmHg MV P1/2t: 59.6 msec Ao max P.5 mmHg MV V2 mean: 62.5 cm/sec Ao V2 mean: 100.3 cm/sec MV mean P.9 mmHg MV dec slope: 418.5 cm/sec2 Ao mean P.6 mmHg MV V2 VTI: 21.9 cm MVA(P1/2t): 3.7 cm2 Ao V2 VTI: 32.1 cm LV V1 max: 98.7 cm/sec PA V2 max: 105.9 cm/sec TR max hola: 242.9 cm/sec LV V1 max P.9 mmHg PA V2 mean: 73.0 cm/sec TR max P.6 mmHg ECHO/Echo Complete Interpretation Summary Mild concentric left ventricular hypertrophy. The left ventricular ejection fraction is 65 %. Stage 1 diastolic dysfunction. Mild (1+) mitral valve insufficiency. Mild tricuspid valve insufficiency. Ordering Physician: Abida Saleem Referring Physician: Abida Saleem Performed By: Jorge De Santiago RCS
== END | disposition home or self-care (01) ==
PROVIDERS: PCP Internal Medicine; Referring Provider Internal Medicine; Visit Provider Internal Medicine
DX: G47.33 Obstructive sleep apnea (adult) (pediatric) (principal)
CPT/HCPCS: 93306

== ENCOUNTER → 2024-06-14 | Outpatient (CLI) | payer MEDICARE, SELFPAY ==
--- NOTE | 2024-06-14 13:22 | BI_ITS ---
MAMMOGRAPHY - BILATERAL SCREENING REASON FOR EXAM: Female, 74 years old. Routine annual screening examination. PERTINENT HISTORY: Sister with breast cancer. TECHNIQUE: Digital bilateral breast amador (3D mammographic acquisition) in the CC and MLO projections. 2-D mediolateral oblique (MLO) and craniocaudad (CC) views of both breasts were obtained. CAD: Full Field Digital Mammography with Computer Added Detection was performed. COMPARISON: Comparison is made with prior study dated February 01, 2022 and July 17, 2019. FINDINGS: Breast Composition: There are scattered areas of fibroglandular density. There is a new 1.3 cm x 1.1 cm spiculated nodule in the anterior slightly upper lateral aspect of the left breast. A neoplastic process should be ruled out. Correlation with ultrasound is recommended. No other significant abnormalities are identified. BI/SCRN MAMM (CAD)W/AMADOR BILAT IMPRESSION: New 1.3 cm x 1.1 cm spiculated nodule in the anterior slightly upper lateral aspect of the left breast. Correlate with ultrasound recommended. ASSESSMENT CATEGORY: BIRADS Category 0: Incomplete. Need additional imaging evaluation. A letter regarding these results will be sent to the patient by the facility within 30 days. Approximately 10% of breast cancers are not detected by mammography. A normal mammogram should not delay biopsy of a clinically suspicious abnormality. [id number] Electronically Signed: Jaden Rios MD at 15:42 EST ,
--- NOTE | 2024-06-14 13:30 | BD_ITS ---
STUDY: DUAL ENERGY X-RAY ABSORPTIOMETRY / DXA REASON FOR EXAM: Female, 74 years old. [id number] -- Postmenopausal status TECHNIQUE: Bone Mineral Density (BMD) measurements of lumbar spine and right hip were obtained. COMPARISON: Comparison is made with prior study dated August 04, 2021. FINDINGS: Lumbar Spine (L1-L4): g/cm2 (1.341) / T-score (2.6) / Z-score (4.9) Findings are suggestive of normal bone density with a low fracture risk. Right Femur Total: g/cm2 (1.051) / T-score (0.9) / Z-score (2.5) Right Femoral Neck: g/cm2 (0.919) / T-score (0.6) / Z-score (2.5) The T-Scores on the most recent prior examination were: Lumbar Spine (L1-L4): There has been improvement of bone density since the previous examination. Right Femur Total: which represents a worsening of 2.8%. BD/Dexa Bone Density Study IMPRESSION: The patient is considered normal as outlined below according to World Bradly Organization (WHO) criteria with a low fracture risk. There has been worsening of bone density since the previous examination. Reference Information: The T-score is the number of standard deviations above or below the standard which is normal for young adults at their peak bone mineral density. The World Health Organization (WHO) interprets the T-scores as follows: Above -1 Normal bone density Between -1 and -2.5 Osteopenia Equal to / or below -2.5 Osteoporosis As a practical clinical guideline, osteopenia may be graded as follows: Mild -1 through -1.5 Moderate -1.6 through -2.0 Severe -2.1 through -2.4 The Z-score is the number of standard deviations above or below age-matched controls. A Z-score of less than -1.5 would be considered abnormal. References: 1. NIH Osteoporosis and Related Bone Diseases www osteo.org 2. International Society for Clinical Densitometry www iscd.org 3. National Osteoporosis Foundation www nof.org Electronically Signed: Jaden Rios MD at 15:40 EST ,
== END | disposition home or self-care (01) ==
LOC: OPBD 13:21
PROVIDERS: PCP Internal Medicine; Referring Provider Internal Medicine; Visit Provider Internal Medicine
DX: Z13.820 Encounter for screening for osteoporosis (principal); Z78.0 Asymptomatic menopausal state; Z12.31 Encounter for screening mammogram for malignant neoplasm of breast
CPT/HCPCS: 77063; 77067; 77080

== ENCOUNTER → 2024-06-26 | Outpatient (CLI) | payer MEDICARE, SELFPAY ==
--- NOTE | 2024-06-26 14:02 | US_ITS ---
STUDY: ULTRASOUND BREAST - LEFT REASON FOR EXAM: Female, 74 years old. Abnormal screening mammogram. TECHNIQUE: Axial and longitudinal images of the LEFT breast were performed with a high resolution ultrasound transducer. # OF IMAGES: 8 COMPARISON: Comparison is made with prior mammogram dated June 14, 2024. FINDINGS: LEFT Breast: The mammographic abnormality corresponds to a 1 cm x 1.2 cm x 1.3 cm irregular spiculated hypoechoic mass with posterior shadowing at the 12 to 1:00 position of breast at 3 cm from the nipple. Biopsy recommended. US/Breast Limited Unilateral IMPRESSION: The mammographic abnormality corresponds to a 1 cm x 1.2 cm x 1.3 cm irregular spiculated hypoechoic mass with posterior shadowing at the 12 to 1:00 position of the breast at 3 cm from the nipple. Biopsy recommended. ASSESSMENT CATEGORY: BIRADS Category 5: Highly Suggestive of Malignancy - Appropriate Action Should Be Taken. A letter regarding these results will be sent to the patient by the facility within 30 days. Electronically Signed: Jaden Rios MD at 14:46 EST ,
== END | disposition home or self-care (01) ==
PROVIDERS: PCP Internal Medicine; Referring Provider Internal Medicine; Visit Provider Internal Medicine
DX: R92.8 Other abnormal and inconclusive findings on diagnostic imaging of breast (principal)
CPT/HCPCS: 76642

== ENCOUNTER → 2024-06-29 | Outpatient (CLI) | payer MEDICARE, SELFPAY ==
--- NOTE | 2024-06-29 | IMM_PTH ---
PATIENT: ATIF LORENZO LOC: [facility] U#:[id number] AGE/SX: 74/F ROOM: RE06/29/[address]: Dr. Earl Weaver MD : 1950 BED: DIS: 06/29/2024 SPEC #: [id number] RECD: 07/02/24 13:01 STATUS: MANJU REQ #: [id number] TE: 06/29/24 00:[address]: Earl Weaver DEPT: IMMUNOHISTOCHEMISTRY RECD BY: Jerry Mccloud ENTERED: 07/02/24 13:02 SP TYPE: IMMUNO OTHR DR: Dr. Abida Saleem DO Tissues: Left breast, NOS Procedures: P53 (initial) CALPONIN-1 (add) CK5-6 (add) CK8 (add) E-CAD (add) HER2 CHARLENE (add) KI-67 (add) DC (add) P40 (add) MOC-31 (add) ER (initial) PHYSICIAN & INSTITUTION [address] [address] SPECIMEN INFORMATION: Tissue Source: Left breast biopsy Clinical Info: Abnormal mammogram Specimen Number: [id number] CPT code: [id number] METHODOLOGY: Deparaffinized sections of prefer/formalin-fixed tissue or PAP/DQ stained slides are incubated with monoclonal/polyclonal antibodies/oligonucleotide probes. Localization is made via biotin free immunoperoxidase method. Appropriate controls are performed and reacted as expected. Results on target cell population are indicated in the following table: RESULTS: ANTIBODY / CLONE RESULT P53 (DO-7) positive, wild type, dim Ki-67 (30-9) positive, 15% CK8 (81semvM96) positive CK5-6 (D5 & 1684) negative Calponin-1 (OA921A) negative P40 (BC28) negative E-Cad (ECH-6) positive MOC-31 (4561) positive MORPHOMETRIC ANALYSIS ER (clone 6F11) >95%, moderate intensity DC (clone 16/1E2) 40%, moderate to strong Her-2Neu (clone CB11) 2+ The prognostic test for HER2 is performed on formalin-fixed paraffin embedded tissue. A 3+ (positive) staining pattern is defined as intense, homogeneous, complete, circumferential membranous staining in >10% of contiguous tumor cells. A similar weak (2+) staining pattern is interpreted as equivocal. RIC follow-up testing is recommended for all equivocal cases. Positivity/negativity for ER/DC is reported if > or < 1% of the tumor cells are immuno- reactive, respectively. The ASCO/CAP criteria is used for scoring. Reference: Journal of Clinical Oncology, 2013; 31:5585-0360 & 2010; 16:2538-5792. Ischemic time: Less than one hour. Duration of fixation: 12 Hrs; Sample Adequate: Yes. These assays have not been validated on decalcified tissues. Results should be interpreted with caution given the likelihood of false negativity on decalcified specimens or fixation greater than 72 hours. Alternative testing methods (FISH/dualISH for Her2; gene expression for ER) are recommended, if applicable. Please notify the laboratory if additional testing is required. These tests were developed and their performance characteristics determined by [facility]. They may not have been cleared or approved by the U.S. Food and Drug Administration. The FDA has determined that such clearance or approval is not necessary. The above immunohistochemical/dualISH markers are ordered and reviewed by the Pathologist. 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 Positive for estrogen receptors (favorable prognostic indicator). Positive for progesterone receptors (favorable prognostic indicator). Equivocal for overexpression of [id number]. Zamora 07/04/2024 ADDENDUM ADDENDUM ADDENDUM ADDENDUM ADDENDUM ADDENDUM ADDENDUM ADDENDUM ADDENDUM ADDENDUM ADDENDUM ADDENDUM ADDENDUM ADDENDUM ADDENDUM ADDENDUM ADDENDUM ADDENDUM ADDENDUM ADDENDUM ADDENDUM 07/04/2024 13:47 ADDENDUM 07/04/2024 13:47 ADDENDUM 07/04/2024 13:47 ADDENDUM 07/04/2024 13:47 ADDENDUM 07/04/2024 13:47 IN SITU HYBRIDIZATION (RIC) FOR HER2 Interpretation: Not Amplified HER2 : CEP-17 Ratio: 1.1 Average HER2 Signal: 2.15 Average CEP-17 Signal: 1.95 Number of Tumor Cells Scanned: 50 Interpretative Information: The INFORM HER2 Dual RIC DNA Probe Cocktail assay is performed on formalin-fixed paraffin embedded tissue and determines HER2 gene status by detecting HER2 copies via silver in situ hybridization (SISH) and Chromosome 17 copies via chromogenic red in situ hybridization on tumor cells. A minimum of 20 cells representing > 10% of contiguous and homogeneous invasive tumor cells were analyzed. HER2 gene status is classified as Non-amplified (HER2/Chr17 ratio < 2.0) or Amplified (HER2/Chr17 ratio greater than or equal to 2.0). If the resulting HER2/Chr17 ratio falls within 1.8 - 2.2 (Borderline), retesting by FISH is recommended. Reference: Val AC, Jamel JOSE, Aletha DG, et al: Recommendations for Human Epidermal Growth Factor Receptor 2 Testing in Breast Cancer: [place] Society of Clinical Oncology / College [employer] [place] [employer] Clinical Practice Guideline Update. J Clin Oncol 31:5262-1829, 2013.
--- NOTE | 2024-06-29 08:00 | BREAST_PTH ---
PATIENT: ATIF LORENZO LOC: [facility] U#:[id number] AGE/SX: 74/F ROOM: RE06/29/[address]: Dr. Earl Weaver MD : 1950 BED: DIS: 06/29/2024 SPEC #: [id number] RECD: 06/29/24 14:01 STATUS: MANJU JEAN-PAUL #: [id number] TE: 06/29/24 08:[address]: Earl Weaver DEPT: SURGICAL PATHOLOGY RECD BY: Jerry Mccloud ENTERED: 06/29/24 14:02 SP TYPE: BREAST OTHR DR: Dr. Abida Saleem, Tissues: Left breast, NOS Procedures: Surgery Specimen Level IV HEADER OPERATION: Ultrasound guided needle core biopsy of left breast PRE-OP DIAGNOSIS: Abnormal mammogram TISSUE SUBMITTED: Left breast biopsy Ischemic Time: 1 minute Fixation Time: 12 hours MICROSCOPIC DIAGNOSIS Left breast, ultrasound guided needle core biopsy: Invasive ductal carcinoma. See cancer template below. 07/02/2024 COMMENT INVASIVE BREAST CANCER SUMMARY: Procedure: Needle core biopsy Specimen Laterality: Left breast Tumor site: Not specified Histologic type: Invasive ductal carcinoma Provisional Histologic grade: 2 Tubule Differentiation Score: 3 Nuclear Pleomorphism Score: 2 Mitotic Rate Score:1 Tumor Size ( greatest dimension): 9.0mm Ductal Carcinoma In situ: Not identified Angiolymphatic Invasion: Not identified Microcalcifications: Focally present Additional Findings: Mild fibrocystic change. Breast Marker Study: [id number] ER: positive (>95% with moderate intensity) IN: positive (40% with moderate to strong intensity) Her2:equivocal (2+ by IHC) Ki67:15% [id number]:Not Amplified The above summary is in compliance with [employer] [place] Pathology (CAP) Cancer Protocols Checklist and [place] Joint Committee on Cancer (AJCC), Staging Manual, 8th Ed. MICROSCOPIC DESCRIPTION Slides are reviewed. GROSS DESCRIPTION Received in fixative is one container labeled with the patient's name and designated Left breast. The specimen consists of multiple elongated fragments of grewal-yellow soft tissue that in aggregate measure 1.5 x 1.0 x 0.1 cm. The specimen is submitted in its entirety in one cassette. 06/29/2024 TC:0 CPT:60511
== END | disposition home or self-care (01) ==
LOC: LABSPEC 13:56
PROVIDERS: PCP Internal Medicine; Visit Provider Surgery
DX: C50.912 Malignant neoplasm of unspecified site of left female breast (principal); Z17.0 Estrogen receptor positive status [ER+]
CPT/HCPCS: 81002; 88305; 88341; 88342

== ENCOUNTER 2024-07-19 08:40 | Day surgery (SDC) | payer MEDICARE, SELFPAY ==
--- NOTE | 2024-07-17 08:41 | PAT.ANESEVAL ---
Pre-Assessment Diagnosis/Proposed Procedure Planned Operative Procedure(s): LEFT BREAST STEREO LOCALIZRED LUMPECTOMY WITH SENTINEL LYMPH NODE BIOPSY Anesthesia History Anesthesia History - fabrics and material cutter: Anesthesia History - fabrics and material cutter Hx Hospitalization No 07/17/24 08:14 Any Problems With Anesthesia Yes: N,V AND HYPOTENSION 07/17/24 08:14 Cholinesterase deficiency No 07/17/24 08:14 You/Your Family Experience No 07/17/24 08:14 fever (hyperthermia) with Relationship Recent Exposure to Contagious Disease Does patient have nerve No 07/17/24 08:14 stimulator Patient instructed to have device shut off --Does patient have Pacemaker or ICD? When Was Last Pacemaker Check QUESTION #4 FULL TEXT: You/Your Family Experience fever (hyperthermia) with Anesthesia Last Oral Intake Last Oral intake: Last Oral Intake NPO since Meds taken in AM with sips of water? Meds patient instructed to take am of surgery PONV PONV - fabrics and material cutter: PONV - fabrics and material cutter Female Yes 07/17/24 08:14 HX of Motion Sickness No 07/17/24 08:14 HX of N/V After Surgery Yes 07/17/24 08:14 Non-Smoker Yes 07/17/24 08:14 Duration of Surgery greater Yes 07/17/24 08:14 than 60 minutes Number of Risk Factors 4 07/17/24 08:14 PONV Score Severe Risk 07/17/24 08:14 Height & Weight Height & Weight: Anesthesia: Height & Weight Height 5 ft 07/09/24 09:37 Respiratory Assessment Respiratory Assessment - fabrics and material cutter: Respiratory Tract Infection Hx - fabrics and material cutter Hx Respiratory Tract Infection No 07/17/24 08:14 STOP Sleep Apnea STOP Sleep Apnea - fabrics and material cutter: STOP Sleep Apnea - fabrics and material cutter Hx Hypertension Yes: CONTROLLED WITH MED 07/17/24 08:14 Hx Sleep Apnea Yes 07/17/24 08:14 CPAP Yes: NONCOMPLIANT 07/17/24 08:14 BIPAP No 07/17/24 08:14 Do you snore loudly (louder than talking or can be heard Do you often feel tired/ fatigued/ sleepy during daytime? Has anyone observed you stop breathing during sleep? STOP Results Positive 07/17/24 08:14 QUESTION #5 FULL TEXT : Do you snore loudly (louder than talking or can be heard through closed doors)? Tobacco Use History Tobacco Use History - fabrics and material cutter: Tobacco Use History - fabrics and material cutter Tobacco Use Smoking Status Never smoker 07/17/24 08:14 Hx Tobacco Use No 07/17/24 08:14 Years Smoking Packs Smoked per Day Smoking Cessation Date was within the last 15 years Hx Smoking Cessation Date Hx Smoking Cessation Counseling Hematologic Medial History Hematologic Hx - fabrics and material cutter: Hematologic Medical Hx - sub prior Hx of Blood Transfusion Yes 07/17/24 08:14 Hx of Transfusion in last 3 No 07/17/24 08:14 Months Date of Last Transfusion (if within last 3 months) Ever experience any problems No 07/17/24 08:14 with transfusion(s)? Specify any problems Hx of Preganancy in last 3 No 07/17/24 08:14 Months Nurse Filling Out Transfusion DSCHRIBER 07/17/24 08:14 & Questions: Date: 07/17/24 07/17/24 08:14 Time: 08:17 07/17/24 08:14 Patient unable to answer at this time (ie. confused, unrespo /Reproduction History /Reproductive History - fabrics and material cutter: /Reproductive Hx- fabrics and material cutter Hx Now No 07/17/24 08:14 Gestational Age (in weeks): EDC: Hx Hx Para Hx Section SAB No 07/17/24 08:14 [facility] Medical History (Updated 07/17/24 @ 08:26 by Mami Baldwin) Wears glasses Post-menopausal Arthritis History of ulceration Shortness of breath on exertion CPAP (continuous positive airway pressure) dependence History of edema History of echocardiogram History of stress test Cardiology follow-up encounter Breast cancer Abnormal mammogram of left breast Chronic diastolic (congestive) heart failure Bilateral pleural effusion (04/2018) Gastric ulcer without hemorrhage or perforation Obesity Essential (primary) hypertension Splenic cyst Hiatal hernia Diverticulosis Gall stones Anemia Home Medications ?Medication ?Instructions ?Recorded ?Last Taken ?Type ferrous sulfate 325 mg (65 mg 325 mg PO DAILY 05/10/19 Unknown History iron) tablet (Iron (ferrous sulfate)) losartan 25 mg tablet (Cozaar) 25 mg PO DAILY 05/10/19 Unknown History multivitamin 1 cap PO DAILY 05/10/19 Unknown History Allergy/AdvReac Type Severity Reaction Status Date / Time No Known Allergies Allergy Verified 07/17/24 08:12 Family History Mother CAD (coronary artery disease) Sister Diabetes Breast cancer Brother Hypertension Grandfather CAD (coronary artery disease) Grandmother CAD (coronary artery disease) Surgical History (Updated 07/17/24 @ 08:26 by Mami Baldwin) Hx of colonoscopy Hx of breast biopsy Hx of total knee arthroplasty Hx of total knee arthroplasty Hx of total hip arthroplasty History of hysterectomy History of tonsillectomy Social History Smoking Status: Never smoker Audit: Pertinent Findings Pertinent Findings EKG Perinent findings: May 23, 2018. Normal sinus rhythm. Stress test pertinent findings: June 18, 2019. Ejection fraction 79%. No areas of reversibility are noted to suggest ischemia and no previous infarct is noted. Echo (EF%) pertinent findings: May 28, 2024. Ejection fraction 65%. Normal PA pressure. No aortic stenosis seen. Consult pertinent findings: June 20, 2019. Dr. Pastor #1 essential hypertension. Well-controlled. #2 history of shortness of breath when her hemoglobin was decreased and is now 13 and improved shortness of breath. #3. Her echo did not demonstrate any pulmonary hypertension. Will continue to observe. Recommendation Anesthesia Recommendation Anesthesia recommendation: OPTIMIZED for anesthesia
[2024-07-19] VITALS (7 sets, daily range): BP systolic 116–148; BP diastolic 73–90; PULSE 79–93; RESP 12–20; TEMP 36.3–37.1; O2SAT 88–98; BMI 40.0
--- NOTE | 2024-07-19 | IMM_PTH ---
PATIENT: ATIF LORENZO LOC: [facility] U#:[id number] AGE/SX: 74/F ROOM: RE07/19/[address]: Dr. Earl Weaver MD : 1950 BED: DIS: 07/19/2024 SPEC #: [id number] RECD: 07/24/24 11:16 STATUS: MANJU REQ #: [id number] TE: 07/19/24 00:[address]: Earl Weaver DEPT: IMMUNOHISTOCHEMISTRY RECD BY: Jerry Mccloud ENTERED: 07/24/24 11:17 SP TYPE: IMMUNO OTHR DR: Dr. Abida Saleem DO Tissues: B - Axillary lymph node, NOS D - Axillary lymph node, NOS Procedures: CK7 (add) Pankeratin (initial) Pankeratin (add) CK7 (initial) PHYSICIAN & INSTITUTION [place] [id number] SPECIMEN INFORMATION: Tissue Source: B- Left sentinel axillary lymph node, D- Left axillary contents Clinical Info: Breast cancer, left Specimen Number: [id number] B, D CPT code: [id number] METHODOLOGY: Deparaffinized sections of prefer/formalin-fixed tissue or PAP/DQ stained slides are incubated with monoclonal/polyclonal antibodies/oligonucleotide probes. Localization is made via biotin free immunoperoxidase method. Appropriate controls are performed and reacted as expected. Results on target cell population are indicated in the following table: RESULTS: ANTIBODY / CLONE RESULT Block B 1 AE1-3 (AE1/AE3/PCK26) negative CK7 (OV-TL12/30) negative Block D1 AE1-3 (AE1/AE3/PCK26) negative CK7 (OV-TL12/30) negative Block D2 AE1-3 (AE1/AE3/PCK26) negative CK7 (OV-TL12/30) negative Block D3 AE1-3 (AE1/AE3/PCK26) negative CK7 (OV-TL12/30) negative Block D4 AE1-3 (AE1/AE3/PCK26) negative CK7 (OV-TL12/30) negative Block D5 AE1-3 (AE1/AE3/PCK26) negative CK7 (OV-TL12/30) negative Block D6 AE1-3 (AE1/AE3/PCK26) negative CK7 (OV-TL12/30) negative Block D7 AE1-3 (AE1/AE3/PCK26) negative CK7 (OV-TL12/30) negative Block D8 AE1-3 (AE1/AE3/PCK26) negative CK7 (OV-TL12/30) negative These tests were developed and their performance characteristics determined by [facility]. They may not have been cleared or approved by the U.S. Food and Drug Administration. The FDA has determined that such clearance or approval is not necessary. The above immunohistochemical/dualISH markers are ordered and reviewed by the Pathologist. INTERPRETATION: B. Left sentinel axillary lymph node, biopsy: One lymph node, negative for metastatic carcinoma. D. Left axillary contents, biopsy: Six out of six lymph nodes, negative for metastatic carcinoma. JAMISON. 07/26/2024
--- NOTE | 2024-07-19 08:53 | NM_ITS ---
CLINICAL: 74-year-old female presenting for preoperative injection left breast for sentinel lymph node identification. 99m Tc SULFUR COLLOID SENTINEL NODE PRE-OPERATIVE INJECTION COMPARISON: None available TECHNIQUE: The patient was administered 4 individual intradermal injections totaling 1.1 mCi of filtered 99mTc sulfur colloid to the left breast, by The nuclear medicine department personnel. No image acquisitions were obtained. Electronically Signed: Alexandr Delatorre, at 11:31 EST , NM/Lymph Node Injection Only IMPRESSION: undefined
--- NOTE | 2024-07-19 09:16 | PRE.ANES_ITS ---
ASA Classification* ASA Classification ASA Classification: 2 Assessment & Plan Anesthesia* Anesthesia Assessment Anesthesia Assessment: Discussed sedation and/or anesthesia options, risks, benefits, and alternatives with patient/parents/legal guardian/POA. Questions invited. The patient/parents/legal guardian/POA seems to understand and agrees to proceed with anesthesia plan. Reviewed the physical assessment, medical history, allergy history and patient home medications list prior to surgery/procedure/anesthetic and documented any changes. Performed airway and anesthesia risk assessments. Anesthesia Type Anesthesia Type: MAC (General anesthesia as a backup.) History Source History Obtained from:: Patient and Chart Anesthesia Focused Assessment* Temperature: 98 F Pulse Rate: 79 Blood Pressure: 137/75 Respiratory Rate: 16 Pulse Ox: 98 Oxygen Delivery Method: Room Air Airway Assessment Mouth opens: >3 cm Mallampati Score: II Teeth Condition: Caps/Crowns (Patient has multiple crowns. They are all they are all tight.) Neck Range of motion (ROM): Full ROM Focused Labs Anesthesia Preop lab: CBC WBC 7.8 K/mm3 (4.4-11.0) 05/25/18 05:30 RBC 4.24 M/mm3 (4.2-5.4) 05/25/18 05:30 Hgb 9.5 g/dl (12.0-15.0) L 05/25/18 05:30 Hct 31.8 % (37-47) L 05/25/18 05:30 Plt Count 322 K/mm3 (150-450) 05/25/18 05:30 CHEMISTRY Potassium 4.4 mmol/L (3.5-5.1) 05/30/18 09:02 Sodium 142 mmol/L (136-145) 05/30/18 09:02 BUN 27 mg/dL (7-18) H 05/30/18 09:02 Creatinine 1.23 mg/dL (0.55-1.02) H 05/30/18 09:02 Glucose 98 mg/dL (74-106) 05/30/18 09:02 COAG Lab additional comments: CBC was done and Dr. Saleem's office on April 28, 2024. Hemoglobin was 13.1. Platelets were 286. Pre-Assessment Diagnosis/Proposed Procedure Planned Operative Procedure(s): LEFT BREAST STEREO LOCALIZED LUMPECTOMY WITH SENTINEL LYMPH NODE BIOPSY Anesthesia History Anesthesia History - nature photographer: Anesthesia History - nature photographer Hx Hospitalization No 07/17/24 08:14 Any Problems With Anesthesia Yes: N,V AND HYPOTENSION 07/17/24 08:14 Cholinesterase deficiency No 07/17/24 08:14 You/Your Family Experience No 07/17/24 08:14 fever (hyperthermia) with Relationship Recent Exposure to Contagious No 07/19/24 09:05 Disease Does patient have nerve No 07/17/24 08:14 stimulator Patient instructed to have device shut off --Does patient have Pacemaker No 07/19/24 09:05 or ICD? When Was Last Pacemaker Check QUESTION #4 FULL TEXT: You/Your Family Experience fever (hyperthermia) with Anesthesia Last Oral Intake Last Oral intake: Last Oral Intake NPO since 00:00 07/19/24 09:05 Meds taken in AM with sips of Yes 07/19/24 09:05 water? Meds patient instructed to take am of surgery Any additional information?: Yes Meds taken in AM with sips of water?: Yes PONV PONV - nature photographer: PONV - nature photographer Female Yes 07/17/24 08:14 HX of Motion Sickness No 07/17/24 08:14 HX of N/V After Surgery Yes 07/17/24 08:14 Non-Smoker Yes 07/17/24 08:14 Duration of Surgery greater Yes 07/17/24 08:14 than 60 minutes Number of Risk Factors 4 07/17/24 08:14 PONV Score Severe Risk 07/17/24 08:14 Height & Weight Height & Weight: Anesthesia: Height & Weight Height 5 ft 07/19/24 09:05 Weight: 93 kg 07/19/24 09:05 Body Mass Index (BMI) 40.0 07/19/24 09:05 Respiratory Assessment Respiratory Assessment - nature photographer: Respiratory Tract Infection Hx - nature photographer Hx Respiratory Tract Infection No 07/17/24 08:14 STOP Sleep Apnea STOP Sleep Apnea - nature photographer: STOP Sleep Apnea - nature photographer Hx Hypertension Yes: CONTROLLED WITH MED 07/17/24 08:14 Hx Sleep Apnea Yes 07/17/24 08:14 CPAP Yes: NONCOMPLIANT 07/17/24 08:14 BIPAP No 07/17/24 08:14 Do you snore loudly (louder than talking or can be heard Do you often feel tired/ fatigued/ sleepy during daytime? Has anyone observed you stop breathing during sleep? STOP Results Positive 07/17/24 08:14 QUESTION #5 FULL TEXT : Do you snore loudly (louder than talking or can be heard through closed doors)? Tobacco Use History Tobacco Use History - nature photographer: Tobacco Use History - nature photographer Tobacco Use Smoking Status Never smoker 07/17/24 08:14 Hx Tobacco Use No 07/17/24 08:14 Years Smoking Packs Smoked per Day Smoking Cessation Date was within the last 15 years Hx Smoking Cessation Date Hx Smoking Cessation Counseling Hematologic Medial History Hematologic Hx - nature photographer: Hematologic Medical Hx - fitness floor attendant Hx of Blood Transfusion Yes 07/17/24 08:14 Hx of Transfusion in last 3 No 07/17/24 08:14 Months Date of Last Transfusion (if within last 3 months) Ever experience any problems No 07/17/24 08:14 with transfusion(s)? Specify any problems Hx of Preganancy in last 3 No 07/17/24 08:14 Months Nurse Filling Out Transfusion DSCHRIBER 07/17/24 08:14 & Questions: Date: 07/17/24 07/17/24 08:14 Time: 08:17 07/17/24 08:14 Patient unable to answer at this time (ie. confused, unrespo /Reproduction History /Reproductive History - nature photographer: /Reproductive Hx- nature photographer Hx Now No 07/17/24 08:14 Gestational Age (in weeks): EDC: Hx Hx Para Hx Section SAB No 07/17/24 08:14 [facility] Medical History Wears glasses Post-menopausal Arthritis History of ulceration Shortness of breath on exertion CPAP (continuous positive airway pressure) dependence History of edema History of echocardiogram History of stress test Cardiology follow-up encounter Breast cancer Abnormal mammogram of left breast Chronic diastolic (congestive) heart failure Bilateral pleural effusion (04/2018) Gastric ulcer without hemorrhage or perforation Obesity Essential (primary) hypertension Splenic cyst Hiatal hernia Diverticulosis Gall stones Anemia Home Medications ?Medication ?Instructions ?Recorded ?Last Taken ?Type ferrous sulfate 325 mg (65 mg 325 mg PO DAILY 05/10/19 Unknown History iron) tablet (Iron (ferrous sulfate)) losartan 25 mg tablet (Cozaar) 25 mg PO DAILY 05/10/19 07/19/24 07:00 History multivitamin 1 cap PO DAILY 05/10/19 Unknown History Allergy/AdvReac Type Severity Reaction Status Date / Time No Known Allergies Allergy Verified 07/19/24 09:03 Family History Mother CAD (coronary artery disease) Sister Diabetes Breast cancer Brother Hypertension Grandfather CAD (coronary artery disease) Grandmother CAD (coronary artery disease) Surgical History Hx of colonoscopy Hx of breast biopsy Hx of total knee arthroplasty Hx of total knee arthroplasty Hx of total hip arthroplasty History of hysterectomy History of tonsillectomy Social History Smoking Status: Never smoker Review of Systems (Anesthesia) ROS Narrative System reviewed and no additional complaints, except as documented.
--- NOTE | 2024-07-19 10:25 | BI_ITS ---
SURGICAL BREAST SPECIMEN RADIOGRAPH CLINICAL: Document presence of tissue clip marker in biopsy specimen. FINDINGS: Specimen shows presence of tissue clip marker. Pathology is pending and an addendum to the biopsy report will be performed after the final pathologic diagnosis is rendered. Electronically Signed: Alexandr Kwong MD at 17:22 EST , BI/Breast Biopsy Specimen IMPRESSION: undefined
--- NOTE | 2024-07-19 11:29 | OP.PCM_ITS ---
Problems Associated Problem List Diagnoses (1) Breast cancer, left: Procedures Integumentary [id number]: [id number] Perq dev breast 1st [facility] Operative Report (Standard) Operative Information Date of Procedure: 07/19/24 Pre-Operative Diagnosis: Left breast cancer Post-Operative Diagnosis: Same Surgery/Procedure Performed: Left breast stereotactic wire localization placement senior applications analyst: No Type of Anesthesia: Local RN Documented Start/Stop Times: Operation Date: 07/19/24 11:30 Case Time Into Pre-Op 07/19/24 08:45 Procedure Start Time: 11:05 Procedure Stop Time: 11:15 Select all DRAINS/GRAFTS/IMPLANTS that apply: Implanted device Implanted device details: Localization wire Estimated Blood Loss: None Specimen collected: No Description of surgery: Patient is a 74-year-old female who is to undergo left breast lumpectomy and sentinel lymph node biopsy this morning. She presents this morning to the breast imaging suite for wire localization under stereotactic guidance. The patient was identified and placed in a prone position on the stereotactic/mammotome table. The left breast was placed in a compression. Images were obtained until the marking clip was identified. These were then used to target the lesion. A Bard biopsy needle and wire were inserted to the desired depth. The wire was then deployed and the needle was removed. Post procedure images showed the wire to be in good position and 2 views. Patient will then be transferred back to preop area to proceed with lumpectomy. She tolerated the procedure well Surgical Findings: See procedure note. Complications Complications: No Admit VTE Documentation VTE Present on Admission: No VTE Mechan Device Prophylaxis: None VTE Pharm Prophylaxis ordered?: No Reason prophylaxis not ordered: Treatment Not Indicated
--- NOTE | 2024-07-19 11:33 | PCM.HP.STD ---
HPI - General General Date of Admission: 07/19/24 Date of Service: 07/19/24 Chief Complaint: Left breast cancer HPI Narrative ATIF LORENZO, is a 74 F who presents for left breast lumpectomy and sentinel lymph node biopsy as treatment of left breast cancer. We discussed the details of the planned procedure and she wishes to proceed. [facility] Medical History Wears glasses Post-menopausal Arthritis History of ulceration Shortness of breath on exertion CPAP (continuous positive airway pressure) dependence History of edema History of echocardiogram History of stress test Cardiology follow-up encounter Breast cancer Abnormal mammogram of left breast Chronic diastolic (congestive) heart failure Bilateral pleural effusion (04/2018) Gastric ulcer without hemorrhage or perforation Obesity Essential (primary) hypertension Splenic cyst Hiatal hernia Diverticulosis Gall stones Anemia Home Medications ?Medication ?Instructions ?Recorded ?Last Taken ?Type ferrous sulfate 325 mg (65 mg 325 mg PO DAILY 05/10/19 Unknown History iron) tablet (Iron (ferrous sulfate)) losartan 25 mg tablet (Cozaar) 25 mg PO DAILY 05/10/19 07/19/24 07:00 History multivitamin 1 cap PO DAILY 05/10/19 Unknown History Allergy/AdvReac Type Severity Reaction Status Date / Time No Known Allergies Allergy Verified 07/19/24 09:03 Family History Mother CAD (coronary artery disease) Sister Diabetes Breast cancer Brother Hypertension Grandfather CAD (coronary artery disease) Grandmother CAD (coronary artery disease) Surgical History Hx of colonoscopy Hx of breast biopsy Hx of total knee arthroplasty Hx of total knee arthroplasty Hx of total hip arthroplasty History of hysterectomy History of tonsillectomy Social History Smoking Status: Never smoker ROS Eyes Eyes: Reports systems reviewed and no addt'l complaints, except as documented ENT HEENT: Reports systems reviewed and no addt'l complaints, except as documented Cardiovascular Cardiovascular: Reports systems reviewed and no addt'l complaints, except as documented Respiratory/Chest Respiratory/Chest: Reports systems reviewed and no addt'l complaints, except as documented Gastrointestinal Gastrointestinal: Reports systems reviewed and no addt'l complaints, except as documented Genitourinary Genitourinary: Reports systems reviewed and no addt'l complaints, except as documented Musculoskeletal Musculoskeletal: Reports systems reviewed and no addt'l complaints, except as documented Integumentary Integumentary: Reports systems reviewed and no addt'l complaints, except as documented Neurologic Neurologic: Reports systems reviewed and no addt'l complaints, except as documented Psychiatric Psychiatric: Reports systems reviewed and no addt'l complaints, except as documented Vital Signs Vital Signs Vital Signs: 07/19/24 09:05 07/19/24 09:05 07/19/24 09:28 Temperature 98 F 98 F Temperature Source Temporal Pulse Rate 79 79 Respiratory Rate 16 16 Respiratory Pattern Normal Blood Pressure 137/75 H 137/75 H Blood Pressure Mean 95 Blood Pressure Source Monitor Blood Pressure Position Semi-Fowlers Blood Pressure Location Left Arm Pulse Ox 98 98 Oxygen Delivery Method Room Air Room Air Weight Weight: 205 lb 0.478 oz Body Mass Index (BMI) 40.0 Results Imaging Radiology Impression [place] Node 07/19/24 08:53 IMPRESSION: undefined Assessment & Plan Assessment/Plan (1) Breast cancer, left: PLAN: Plan Patient is a 74-year-old female with a recently discovered left breast cancer. She is to undergo a left breast lumpectomy with sentinel lymph node biopsy. She underwent stereotactic wire localization earlier this morning. We again reviewed the details of the planned procedure and she wishes to proceed. Surgery will begin momentarily. Charges/Coding Visit Charges Inpatient E&M: 04462 Init Hosp L1
[2024-07-19] MEDS: Isosulfan Blue 1% 5 ML Vial (12:10)
[2024-07-19] MEDS: Lidocaine 1% /Epi 1:100 (20ml) 20 ML Vial (12:16)
[2024-07-19] MEDS: Bupivacaine 0.25% 30 ML Vial (12:17)
--- NOTE | 2024-07-19 12:54 | BRBX_PTH ---
PATIENT: ATIF LORENZO [place] [facility] [place][id number] AGE/SX: 74/F ROOM: RE07/19/[address]: Dr. Earl Weaver MD : 1950 BED: DIS: 07/19/2024 SPEC #: [id number] RECD: 07/19/24 13:01 STATUS: MANJU RENicolette #: [id number] TE: 07/19/24 12:[address]: Earl Weaver DEPT: SURGICAL PATHOLOGY RECD BY: Stanislaw Greenfield ENTERED: 07/19/24 14:05 SP TYPE: BREAST BX MOOKIE DR: Dr. Abida Saleem DO Tissues: A - Left breast, NOS B - Axillary lymph node, NOS C - Left breast, NOS D - Axillary lymph node, NOS Procedures: Frozen Section (charge) Surgery Specimen Level IV Surgery Specimen Level V HEADER OPERATION: Breast stereo wire localization, lumpectomy, axillary lymph nodes PRE-OP DIAGNOSIS: Breast cancer, left TISSUE SUBMITTED: A. Left breast mass, B. Left sentinel axillary lymph node, C. Left breast mass, D. Left axillary contents FROZEN SECTION DIAGNOSIS B. Left axillary sentinel lymph node, biopsy: One lymph node, negative for metastatic carcinoma. SJ:cc 07/19/24 MICROSCOPIC DIAGNOSIS A. Left breast mass, needle localization lumpectomy: Invasive ductal carcinoma. See cancer summary in the comment section. B. Left axillary sentinel lymph node, biopsy: One lymph node, negative for metastatic carcinoma. C. Left breast mass, additional superior margin: Focal intraductal hyperplasia with atypia. Negative for carcinoma. D. Left axillary contents, regional dissection: Six out of six lymph nodes, negative for metastatic carcinoma. [email or web address] 07/24 COMMENT A. BREAST CANCER SUMMARY Procedure - excision with lumpectomy with wire-guided localization Specimen laterality - Left breast Invasive tumor: Tumor site - Not specified Tumor size - 1.5 x 1.0 x 1.0cm Histologic type - Invasive ductal carcinoma, no special type Histologic grade (Bry grade): Glandular/tubular differentiation score - 3 Nuclear pleomorphism score - 3 Mitotic count score - 1 Overall grade - grade 2 (score of 7) Tumor focality - Single focus of invasive carcinoma Ductal carcinoma in situ - Present Size (extent) of DCIS - Ductal carcinoma comprises about 25% of tumor involved and present adjacent to the invasive tumor. Extensive intraductal component- Present Number of blocks with DCIS - 5 Number of blocks examined - 20 (12 in specimen A and 8 in specimen C) Architectural pattern - Solid and comedo Nuclear grade - grade 2/3 (intermediate to high nuclear grade) Necrosis - present, central (expansive comedo necrosis) Lobular carcinoma in situ - Not identified Tumor extension: Skin - Skin is present and not involved by the tumor Nipple - Not applicable Skeletal muscle - Not present Margins: Margins are uninvolved by invasive carcinoma and ductal carcinoma in situ. Ductal carcinoma in situ is 0.2cm away from the closest superior margin in the lumpectomy specimen and invasive carcinoma is 0.4cm away from the closest superior margin in the lumpectomy specimen. Additional margin measures up to 2.0cm in thickness and negative for carcinoma. Regional lymph nodes: Number of lymph nodes examined - 7 Number of sentinel lymph nodes examined - 1 Number of lymph nodes with macrometastases, micrometastases or isolated tumor cells - 0 Distal metastases - Not applicable Treatment effect - no known presurgical therapy. Lymphvascular invasion - Not identified Dermal lymphvascular invasion - Not identified Additional Pathologic Findings - Intraductal hyperplasia with focal atypia. Fibrocystic changes. Ancillary Studies: Previously performed on same tumor ([id number] / [id number]) ER: positive (>95% with moderate intensity) IA: positive (40% with moderate to strong intensity) Cnm8ckn: Equivocal (2+ by IHC) Ki67: 15% Her2 dual anamaria: Not amplified Microcalcifications - Not identified PATHOLOGIC STAGE: pT1c pN0 pMx The above summary is in compliance with [employer] ([employer]) Cancer Protocols Checklist and [place] [employer] on Cancer (AJCC), Staging Manual, 8th Ed. Please make reference to previous specimen [id number] left breast, ultrasound guided needle core biopsy with diagnosis of invasive ductal carcinoma. B, D. Immunohistochemistry ([id number]) supports the above diagnosis. MICROSCOPIC DESCRIPTION Slides are reviewed. GROSS DESCRIPTION A. Received fresh for frozen section diagnosis labeled with the patient's name is a specimen designated Left breast mass. The specimen consists of a piece of fibroadipose tissue with needle localization measuring 9.0 x 7.5 x 3.0 cm. The specimen is inked as follows: anterior - yellow, posterior - black, superior - blue, inferior - green, medial - red and lateral - orange. Serial sections reveal a tumor mass measuring 1.5 x 1.0 x 1.0cm. This mass is 0.2cm away from the closest superior margin. This information is conveyed to the surgeon intraoperatively. Sections of the rest of the specimen reveal grewal-yellow adipose cut surfaces mixed with scant grewal-white fibrous areas. A piece of skin is noted close to the lateral margin measuring 2.7 x 0.8cm. Experimental Physicist sections are submitted in twelve cassettes as follows: 1- skin, medial margins, lateral margins, 2- perpendicular anterior, posterior and inferior margins, 3-8- tumor with closest superior margin, 9-12- retail customer service representative sections from the other area. . 07/23/2024 B. Received is one container labeled with the patient name and designated left axillary sentinel lymph node. The specimen consists of a piece of grewal-pink nodule with blue dye discoloration that measures 1.5 x 1 x 0.5 cm. The specimen is bisected and submitted for frozen section diagnosis in one cassette. /SJ:cc 07/19/24 C. Received in fixative is one container labeled with the patient's name and designated Left breast mass, additional tissue superior margin. The specimen consists of a piece of fibroadipose tissue measuring 6.5 x 5.5 x 2.0cm. The specimen is not oriented as of new margin. One margin is inked blue. Opposite margin is inked black. Sections reveal yellow adipose cut surfaces without any mass lesions. Experimental Physicist sections are submitted in eight cassettes. Sections will be submitted after additional fixation. SJ.mr 07/23/2024 D. Received in fixative is one container labeled with the patient's name and designated Left axillary contents. The specimen consists of multiple grewal-yellow adiopose tissue measuring in aggregate 7.0 x 7.0 x 2.0cm. Multiple nodules consistent with lymph nodes are identified. Largest lymph node measures 3.5cm in greatest dimension. The lymph nodes are submitted in entirety. Experimental Physicist sections are submitted in eight cassettes as follows: 1-4- each cassette containing one bisected lymph node, 5-7- one serially sectioned lymph node, largest lymph node, 8- a possible lymph node. SJ.mr 07/23/2024 TC:0 CPT:[id number]
--- NOTE | 2024-07-19 14:58 | PCM.POST.ANE ---
Anesthesia: Postop Eval I Current Vital Signs Temperature: 97.4 F Pulse Rate: 84 Blood Pressure: 124/90 Respiratory Rate: 14 Pulse Ox: 94 Oxygen Delivery Method: Nasal Cannula Oxygen Flow Rate (L/min): 2 Assessment Airway patent: Yes Spontaneous unlabored respirations: Yes Mental status: Awake and Calm nausea: No Vomiting: No Anesthesia Complication: No Fluid Hydration Crystalloid volume administer (ml): 40 Total IV fluid infused: 40 Progress Note Anesthesia document: Postop Eval 1 completed: Yes
--- NOTE | 2024-07-19 15:39 | DCINST_ITS ---
Discharge Instructions Diet Discharge Diet: Light diet - advance as tolerated Activity Discharge Activity: Return to Normal Activity and May Shower May shower in (days): 1 May resume sexual activity in: 4-6 weeks Dressing / Incision Call your doctor if your incision/area has: Continuous Slow Oozing, Sudden Increased Bleeding, Increased Pain/ Swelling, Increased Redness, Foul Smelling Discharge and Swelling at the incision site Call your doctor if you observe: Fever of 101 or Higher Remove Dressing in: leave until fall off Cleanse incision/area with: Soap & Water Follow Up Care Please Follow Up With: Earl Weaver MD When: 10 days - 2 weeks Test Results: Test results from this visit will be discussed in further detail at your follow- up appointment, if applicable. Discharge Plan Admission Primary Reason for Your Visit: Left breast lumpectomy and sentinel lymph node biopsy Attending Provider: Earl Weaver Primary Care Provider: Abida Saleem Instructions Print Language: Pashto Discharge Orders/Prescriptions Prescriptions: New oxycodone-acetaminophen [Percocet] 5-325 mg tablet 1 tab PO Q8H PRN (Reason: pain) 3 Days Qty: 10 0RF Continued losartan [Cozaar] 25 mg tablet 25 mg PO DAILY multivitamin Capsule 1 cap PO DAILY ferrous sulfate [Iron (ferrous sulfate)] 325 mg (65 mg iron) tablet 325 mg PO DAILY Referrals / Follow Up: Abida Saleem DO [Primary Care Provider] - Disposition Disposition (needs filled in before D/C Order can be placed): Home, Self Care
--- NOTE | 2024-07-19 15:57 | OP.PCM_ITS ---
Problems Associated Problem List Diagnoses (1) Breast cancer, left: Oncology: Dolly Requirements . Oncology surgical intervention performed: Axillary Lymph Node Dissection for Breast Cancer performed Axillary Lymph - Breast Cancer: Synoptic Portion: Element Response Options Operation performed with curative intent. yes Resection was performed within the boundaries of the axillary vein, chest wall (serratus anterior), and latissimus dorsi. Yes Nerves identified and preserved during dissection (select all that apply) [Long thoracic nerve; Thoracodorsal nerve; Branches of the intercostobrachial nerves; Level III nodes were removed. Yes [place] Node Biopsy for Breast Cancer performed [place] Node Bx - Breast Cancer: Synoptic Portion: Element Response Options Operation performed with curative intent. [ Yes; No. ] Tracer(s) used to identify sentinel nodes in the upfront surgery (non- neoadjuvant) setting (select all that apply). [Dye; Radioactive tracer; Superparamagnetic iron oxide; Other (with explanation); N/A. ] Tracer(s) used to identify sentinel nodes in the neoadjuvant setting (select all that apply).[ Dye; Radioactive tracer; Superparamagnetic iron oxide; Other (with explanation); N/A.] All nodes (colored or non-colored) present at the end of a dye-filled lymphatic channel were removed. [Yes; No (with explanation); N/A. ] All significantly radioactive nodes were removed. [Yes; No (with explanation); N/A.] All palpably suspicious nodes were removed. [Yes; No (with explanation); N/A. ] Biopsy-proven positive nodes marked with clips prior to chemotherapy were identified and removed. [Yes; No (with explanation); N/A.] Procedures Integumentary 16xxx-193xx: 35534 Partial mastectomy Multi Select Codes Integumentary Integumentary CPT Codes: 52864 Partial mastectomy Respiratory/Cardiovascular Resp/Cardiovascular CPT Codes: 50109 Biopsy/removal lymph nodes, 10999 Injection procedure, lymphantiography and 94164 Ra tracer id of sentinl node Operative Report (Standard) Operative Information Date of Procedure: 07/19/24 Pre-Operative Diagnosis: Left breast cancer Post-Operative Diagnosis: Same Surgery/Procedure Performed: 1. Wire localized left breast partial mastectomy 2. Left axillary sentinel lymph node biopsy with radioactive tracer and blue dye 3. Left axillary dissection thermal cutting machine operator: Yes Tire Stripper: Estela Azul Tasks completed by assistant chief nursing officer: Closing and Retracting Additional museum assistant?: No Type of Anesthesia: General and Local RN Documented Start/Stop Times: Operation Date: 07/19/24 11:30 Case Time Into Pre-Op 07/19/24 08:45 Out of Pre-Op 07/19/24 11:36 Anesthesia Start 07/19/24 11:44 Into Room 07/19/24 11:44 Procedure Start 07/19/24 12:17 Procedure End 07/19/24 14:47 Anesthesia End 07/19/24 14:52 Out of Room 07/19/24 14:52 Into Recovery 07/19/24 14:54 Out of Recovery 07/19/24 15:17 Into Phase II Recovery 07/19/24 15:19 Procedure Start Time: 12:17 Procedure Stop Time: 14:47 Select all DRAINS/GRAFTS/IMPLANTS that apply: None Estimated Blood Loss: 30 mL Specimen collected: Yes Description of specimen(s) removed: 1. Left breast partial mastectomy 2. New superior margin 3. Left axillary sentinel lymph node (blue/ no counts) 4. Left axillary contents Description of surgery: The patient is a 74-year-old female who was recently seen to my office with an abnormal left breast mammogram and ultrasound. A suspicious lesion was identified and biopsied under ultrasound guidance via core biopsy. This came back as infiltrating ductal carcinoma. I saw her back in the office and she opted for a left breast lumpectomy and sentinel lymph node biopsy. She presents today for surgery. Earlier in the day a stereotactic wire was placed to localize the lesion. This was performed without difficulty. Patient now presents to the operating room for surgery. She was placed supine on the operative table with arms outstretched on arm boards. LMA anesthesia was utilized. Prior to prepping the breast, blue dye was injected into the sub-dermal region of the nipple areolar complex. This was then massaged into the breast. Also earlier in the day r adioactive tracer was injected into the periareolar area as well. An ellipse was made around the entry point of the guidewire. Bovie electrocautery was then used dissect down through subcutaneous tissues. The specimen was then removed. The specimen was then marked with a long stitch marking the lateral aspect of the specimen and is short stitch was used to indicate the superior aspect. This was sent to radiology to be x-rayed. The marking clip in specimen appeared to be within the tissue. This was sent off to pathology for examination. They did note that the superior margin was close at about 2 mm. I did elect to excise additional tissue and sent this for permanent pathology labeled new superior margin. Hemostasis was excellent. The wound was irrigated. We then turned our attention to the left axilla. An incision was made in the left axillary region just below the hairbearing area of the axilla. Bovie electrocautery was then used dissect down through subtendinous tissues. The axilla was entered. Neoprobe was utilized and we really did not encounter any significant counts in the left axilla despite our best efforts. The left axilla was then explored in order to find blue lymphatics and/or blue lymph nodes. There was a pretty significant amount of axillary adipose tissue which made dissection more challenging. We were eventually able to identify a very obvious blue lymph node. This was sent to pathology labeled sentinel lymph node #1. This came back as negative for any carcinoma. There were no counts with the neoprobe. There were several palpable lymph nodes noted. This was all removed either individually or as 1 group labeled axillary contents of the left side. Hemostasis was excellent. This wound was copiously irrigated as well both wounds were then closed using 3-0 Vicryl in a deeper layer and then 5-0 Vicryl was run in the skin. Skin glue was applied as dressing. An Francisco Javier wrap was applied around the chest. She was awakened from anesthesia and taken to the PACU in good condition A HANDBAG FINISHER was utilized as a surgeon's assistant. Her role included assistance with retraction and skin closure Surgical Findings: Synoptic Portion: Element Response Options Operation performed with curative intent. YES Resection was performed within the boundaries of the axillary vein, chest wall (serratus anterior), and latissimus dorsi. Yes Nerves identified and preserved during dissection (select all that apply) Long thoracic nerve; Thoracodorsal nerve; Branches of the intercostobrachial nerves Level III nodes were removed. Yes Synoptic Portion: Element Response Options Operation performed with curative intent. Yes Tracer(s) used to identify sentinel nodes in the upfront surgery (non- neoadjuvant) setting (select all that apply). Dye; Radioactive tracer Tracer(s) used to identify sentinel nodes in the neoadjuvant setting (select all that apply). N/A. All nodes (colored or non-colored) present at the end of a dye-filled lymphatic channel were removed. Yes All significantly radioactive nodes were removed. N/A. --Insufficient radioactive counts in the axilla All palpably suspicious nodes were removed. Yes Biopsy-proven positive nodes marked with clips prior to chemotherapy were identified and removed. N/A. Complications Complications: No Admit VTE Documentation VTE Present on Admission: No VTE Mechan Device Prophylaxis: SCD's VTE Pharm Prophylaxis ordered?: No Reason prophylaxis not ordered: Treatment Not Indicated
--- NOTE | 2024-07-19 15:58 | PCM.POSTANE2 ---
Anesthesia Postop Eval I Sum Postop Eval Completion status Anesthesia document: Postop Eval 1 completed: Yes Anesthesia Postop Eval I Summary Anesthesia Postop Eval I Summary: Anesthesia Postop Eval I: Assessment Summary Airway patent Yes 07/19/24 14:59 [email or web address] Spontaneous unlabored Yes 07/19/24 14:59 [email or web address] respirations Mental status Awake,Calm 07/19/24 14:59 [email or web address] nausea No 07/19/24 14:59 [email or web address] Vomiting No 07/19/24 14:59 [email or web address] Anesthesia Postop Eval I: Fluid Summary Crystalloid volume administer 40 07/19/24 14:59 [email or web address] (ml) Colloids volume administered ( ml) Blood Product volume administered (ml) Total IV fluid infused 40 07/19/24 14:59 [email or web address] Anesthesia Postop Eval I: Summary Notes Anesthesia Complication No 07/19/24 14:59 [email or web address] Anesthesia Complication Comment: Post-operative progress note Anesthesia: Postop Eval II Evaluation Mental status: Awake and Calm Pain Level: 1 nausea: No Vomiting: No Complications Anesthesia Complication: No
== END 2024-07-19 17:26 | disposition home or self-care (01) ==
LOC: SDC 08:40 → AC 08:41
PROVIDERS: PCP Internal Medicine; Referring Provider Surgery; Visit Provider Surgery
PROC: 0HBV0ZZ Excision of Bilateral Breast, Open Approach (ICD-10-PCS; CPT 19302; principal; 2024-07-19 11:15)
DX: C50.912 Malignant neoplasm of unspecified site of left female breast (principal); I11.0 Hypertensive heart disease with heart failure; I50.32 Chronic diastolic (congestive) heart failure; Z68.41 Body mass index [BMI] 40.0-44.9, adult; D64.9 Anemia, unspecified; E66.9 Obesity, unspecified; G47.30 Sleep apnea, unspecified; Z87.19 Personal history of other diseases of the digestive system; Z79.899 Other long term (current) drug therapy; Z91.199 Patient's noncompliance with other medical treatment and regimen due to unspecified reason
CPT/HCPCS: 19301; 38525; 19283; 01610; 19281; 38792; 76098; 88305; 88307; 88331; 88341; 88342; A4648; A9541; A4216; J2405; Q9968

== ENCOUNTER → 2025-06-17 | Outpatient (CLI) | payer MEDICARE, SELFPAY ==
--- NOTE | 2025-06-17 10:00 | BI_ITS ---
EXAM: SCRN MAMM (CAD)W/AMADOR BILAT DATE: 06/17/2025 CLINICAL HISTORY: F, Age 75 y/o , SCREENING FOR BREAST CANCER TECHNIQUE: Procedure Code: [id number] Modality: MG Procedure: SCRN MAMM (CAD)W/AMADOR BILAT COMPARISON: Prior exam(s) were compared FINDINGS: TISSUE DENSITY: The breasts are heterogeneously dense, which may obscure small masses. Bilateral Breast Mammographic Findings: No suspicious masses, calcifications or other abnormalities are identified. Postsurgical changes in the left breast. Bilateral benign calcifications. BI/SCRN MAMM (CAD)W/AMADOR BILAT IMPRESSION: No mammographic evidence of malignancy in either breast. OVERALL FINAL ASSESSMENT BI-RADS 2: BENIGN RECOMMENDATION: Routine annual follow-up in 1 Year Additional Recommendation none A letter with findings and recommendations will be mailed to the patient. Reading Location: [id number]
== END | disposition home or self-care (01) ==
LOC: OPBI 09:55
PROVIDERS: PCP Internal Medicine; Referring Provider Nurse Practitioner Family; Visit Provider Nurse Practitioner Family
DX: Z12.31 Encounter for screening mammogram for malignant neoplasm of breast (principal); Z85.3 Personal history of malignant neoplasm of breast
CPT/HCPCS: 77063; 77067